=== PATIENT | female | born 1950 | race Caucasian/White ===

== ENCOUNTER → 2019-02-01 10:26 | Outpatient (CLI) | payer MEDICARE, SELFPAY ==
--- NOTE | 2019-02-01 10:50 | XR_ITS ---
PROCEDURE: XR SHOULDER RT MIN 2V CLINICAL INDICATION: right shoulder pain COMPARISON: No exams were available for comparison FINDINGS: Bone density, joint spaces and alignment are normal. There is no acute fracture. Soft tissues unremarkable. IMPRESSION: No acute process. Dictated by: Aj Nascimento 02/01/2019 11:06 Electronically signed by Aj Nascimento in [place] 02/01/2019 11:06
== END ==
PROVIDERS: PCP Family Medicine; Visit Provider Orthopaedic Surgery
DX: M25.511 Pain in right shoulder (principal)
CPT/HCPCS: 73030

== ENCOUNTER → 2019-02-13 13:08 | Outpatient (CLI) | payer MEDICARE, SELFPAY ==
--- NOTE | 2019-02-13 13:10 | MR_ITS ---
PROCEDURE: MR SHOULDER RT WO CON CLINICAL INDICATION: rt shoulder pain Right shoulder pain, prior fall with injury and pain with limited range of motion COMPARISON: XR SHOULDER RT MIN 2V from 02/01/2019 TECHNIQUE: Routine multiplanar multi echo sequences are performed without gadolinium enhancement. FINDINGS: There complete tear of the supraspinatus tendon with retraction of the musculotendinous fibers. Tendinopathy/tendinosis involves the infraspinatus tendon with thickening and increased T2 signal. Teres minor tendon appears intact. There is a moderate degree of motion artifact which obscures fine detail. Tendinopathy/tendinosis involves the subscapularis tendon. Cannot adequately evaluate for partial tear is of the subscapularis due to the motion artifact. No obvious labral tear. The bicipital tendon appears to be in place. There is subacromial stenosis with high-riding humeral head. There are subarticular cystic changes with cortical regularity of the humeral head at the greater tuberosity region.. Fluid is present within the shoulder joint. IMPRESSION: 1. Complete tear of the supraspinatus tendon with retraction of the musculotendinous fibers 2. Moderate degree of motion artifact which obscures fine detail with tendinopathy/tendinosis of the infraspinatus tendon and subscapularis tendon. 3. High-riding humeral head with subacromial stenosis with shoulder joint effusion Dictated by: Caleb Villalobos MD 02/14/2019 13:51 Electronically signed by Caleb Villalobos MD in [place] 02/14/2019 13:51
== END ==
PROVIDERS: PCP Family Medicine; Visit Provider Orthopaedic Surgery
DX: S46.011D Strain of muscle(s) and tendon(s) of the rotator cuff of right shoulder, subsequent encounter; M75.41 Impingement syndrome of right shoulder; M75.21 Bicipital tendinitis, right shoulder; M25.511 Pain in right shoulder
CPT/HCPCS: 73221

== ENCOUNTER 2020-11-13 09:37 | Observation (INO) | payer MEDICARE, SELFPAY ==
[2020-11-13] VITALS (25 sets, daily range): BP systolic 100–152; BP diastolic 48–91; PULSE 76–97; RESP 16–20; TEMP 36.5–43; O2SAT 92–99; BMI 20.8; BMI 22.4
--- NOTE | 2020-11-13 10:04 | HMH.EDGENADL ---
ED Disposition Clinical Impression: Closed right hip fracture Qualifiers: Encounter type: initial encounter Qualified Code(s): S72.001A - Fracture of unspecified part of neck of right femur, initial encounter for closed fracture Disposition: Admitted As Inpatient Condition on Discharge: Fair - Critical Care Critical Care Time: No Attestation: On 11/13/20, the high probability of a clinically significant, sudden or life threatening deterioration of the following system(s) required my full and direct attention, intervention and personal management. The time I documented below is in addition to time spent performing reported procedures but includes the following listed in this critical care notation. Medical Decision Making - Sebastián Inquiry Pt receiving controlled substance: Yes Sebastián was queried for this patient: Yes Risks and benefits of using a controlled substance: were not discussed with pt by me Vital Signs: 11/13/20 09:39 11/13/20 10:01 11/13/20 10:57 Temperature 98.6 F Temperature Source Oral Pulse Rate 76 80 Pulse Rate [Right] 81 Respiratory Rate 16 20 20 Blood Pressure 118/48 L 131/79 Blood Pressure [Left Arm] 125/61 Blood Pressure Mean 71 91 Blood Pressure Mean [Left Arm] 82 Blood Pressure Source [Left Arm] Automatic Cuff 02 Sat by Pulse Oximetry 97 97 97 Oxygen Delivery Method Room Air 11/13/20 11:00 Temperature Temperature Source Pulse Rate 81 Pulse Rate [Right] Respiratory Rate 20 Blood Pressure 132/71 Blood Pressure [Left Arm] Blood Pressure Mean 81 Blood Pressure Mean [Left Arm] Blood Pressure Source [Left Arm] 02 Sat by Pulse Oximetry 97 Oxygen Delivery Method - Lab Data Lab Results 11/13/20 10:50: Sodium 141, Potassium 4.4, Chloride 106, Carbon Dioxide 30, Anion Gap 9.4, BUN 19 H, Creatinine 0.40 L, Estimated Creat Clear 51, Estimated GFR 158, Est GFR ( Amer) 191, Glucose 98, Calcium 9.1, Total Bilirubin 0.3, AST 39 H, ALT 29, Alkaline Phosphatase 83, Total Protein 7.0, Albumin 4.1, Globulin 2.9, Albumin/Globulin Ratio 1.4 11/13/20 11:00: Urine Color Yellow, Urine Appearance Clear, Urine pH 6.5, Ur Specific [place] 1.020, Urine Protein Negative, Urine Glucose (UA) Negative, Urine Ketones Negative, Urine Blood Negative, Urine Nitrate Negative, Urine Bilirubin Negative, Urine Urobilinogen 0.2, Ur Leukocyte Esterase Negative Result diagrams: 11/13/20 10:50 Orders (Tests/Meds): ED MEDICATIONS Discontinued Medications Generic Name Dose Route Start Last Admin Trade Name Trae PRN Reason Stop Dose Admin Morphine Sulfate 4 mg 11/13/20 10:39 11/13/20 10:47 Morphine 4mg/Ml Syringe IV 11/13/20 10:40 4 mg ONCE ONE Administration Ondansetron HCl 4 mg 11/13/20 10:40 11/13/20 10:47 Ondansetron 4mg/2ml Vial IV 11/13/20 10:41 4 mg ONCE ONE Administration ORDERS Category Date Time Status Complete Blood Count Auto Diff Stat Lab 11/13/20 10:50 Received Full Resp Panel w/COVID ([facility]) Routine Lab 11/13/20 10:50 Received Urinalysis (cathed specimen) Stat Lab 11/13/20 11:00 Results - Radiology Data #1 Image(s): Chest, Hip Image Reviewed: Yes I reviewed the patient's radiology image, Yes I have reviewed radiologist's interpretation PROCEDURE: XR HIP RT 2-3V W/PELVIS CLINICAL INDICATION: fall Pain COMPARISON: No exams were available for comparison FINDINGS: There is a nondisplaced intertrochanteric fracture of the right hip. Right femoral head is located with mild osteoarthritic changes of the right hip. No lytic or blastic change apparent. IMPRESSION: Nondisplaced right intertrochanteric hip fracture Dictated by: Caleb Villalobos MD 11/13/2020 10:51 Caleb Villalobos MD in [place] 11/13/2020 10:51 PROCEDURE: XR CHEST PORTABLE CLINICAL HISTORY: hip fx COMPARISON: No exams were available for comparison FINDINGS: The cardiomediastinal silhouette and pulmonary vascularity are w
--- NOTE | 2020-11-13 10:13 | XR_ITS ---
PROCEDURE: XR HIP RT 2-3V W/PELVIS CLINICAL INDICATION: fall Pain COMPARISON: No exams were available for comparison FINDINGS: There is a nondisplaced intertrochanteric fracture of the right hip. Right femoral head is located with mild osteoarthritic changes of the right hip. No lytic or blastic change apparent. IMPRESSION: Nondisplaced right intertrochanteric hip fracture Dictated by: Caleb Villalobos MD 11/13/2020 10:51 Caleb Villalobos MD in [place] 11/13/2020 10:51
--- NOTE | 2020-11-13 10:39 | XR_ITS ---
PROCEDURE: XR CHEST PORTABLE CLINICAL HISTORY: hip fx COMPARISON: No exams were available for comparison FINDINGS: The cardiomediastinal silhouette and pulmonary vascularity are within normal limits. The lungs are clear without infiltrates, suspicious nodules, or pleural effusions. Calcified granuloma left upper lobe. No acute bony findings. IMPRESSION: No acute findings. Dictated by: Caleb Villalobos MD 11/13/2020 10:53 Caleb Villalobos MD in [place] 11/13/2020 10:53
--- NOTE | 2020-11-13 10:55 | PC.NURSE ---
Dr Marquez paged
--- NOTE | 2020-11-13 11:01 | PC.NURSE ---
Dr Mercado spoke with Dr Marquez
--- NOTE | 2020-11-13 11:15 | PC.NURSE ---
Dr Rigoberto coy
[2020-11-13 11:21] LABS: Microscopic,Cath URINE MICROSCOPIC (MICROSCOPIC)
[2020-11-13 11:23] LABS: Adenovirus,PCR Not Detected (NotDetected); Bordetella Pertussis Not Detected (NotDetected); Chlamydophila Pneumoniae, PCR Not Detected (NotDetected); Coronavirus 19, PCR Not Detected (NotDetected); Coronavirus 229E Not Detected (NotDetected); Coronavirus NL63 Not Detected (NotDetected); Coronavirus OC43 Not Detected (NotDetected); Coronovirus HKU1,PCR Not Detected (NotDetected); Human Metapneumovirus Not Detected (NotDetected); Influenza A, PCR Not Detected (NotDetected); Influenza AH1, 2009 Not Detected (NotDetected); Influenza AH1, PCR Not Detected (NotDetected); Influenza AH3,PCR Not Detected (NotDetected); Influenza B, PCR Not Detected (NotDetected); Mycoplasma Pneumoniae, PCR Not Detected (NotDetected); Parainfluenza 1, PCR Not Detected (NotDetected); Parainfluenza 2, PCR Not Detected (NotDetected); Parainfluenza 3, PCR Not Detected (NotDetected); Parainfluenza 4, PCR Not Detected (NotDetected); Respiratory Syncytial Virus Not Detected (NotDetected); Rhinovirus/Enterovirus Not Detected (NotDetected)
--- NOTE | 2020-11-13 11:27 | PC.NURSE ---
Dr Mercado spoke with Dr Franklin
[2020-11-13 11:28] LABS: Appearance,Urine/Cath CLEAR (Clear); Bilirubin,Cath Negative (Negative); Blood, Urine/Cath Negative (Negative); Color,Urine/Cath YELLOW (Yellow); Glucose,Urine/Cath (UA) Negative (Negative); Ketones,Urine/Cath Negative (Negative); Leukocyte Esterase,Cath Negative (Negative); Nitrate,Cath Negative (Negative); PH,Urine/Cath 6.5 (5.0-8.5); Protein,Urine/Cath Negative (Negative); Urobilinogen,Cath 0.2 EU/dl (0.2)
[2020-11-13 11:30] LABS: Chloride 106 mmol/L (98-107)
--- NOTE | 2020-11-13 11:30 | PC.NURSE ---
bed assignment requested, room 204. all staff notified
[2020-11-13 11:31] LABS: Potassium 4.4 mmoL/L (3.5-5.1); Sodium 141 mmol/L (136-145)
[2020-11-13 11:33] LABS: Alanine Aminotransferase 29 U/L (12-78); Aspartate Amino Transferase 39 U/L (14-36); Blood Urea Nitrogen 19 mg/dl (7-17); Creatinine Clearance Estimated 51 mL/min (50-200); Estimated Glomerular Filt Rate 158 ml/min (>60); GFR (African American) 191 ML/MIN (>60)
[2020-11-13 11:34] LABS: Albumin Level 4.1 g/dl (3.5-5.0); Albumin/Globulin Ratio 1.4 (1.1-1.8); Alkaline Phosphatase 83 U/L (38-126); Anion Gap 9.4 mEq/L (5-15); Basophils # 0.1 K/mm3 (0-0.2); Basophils % 0.8 % (0.1-2.0); Bilirubin,Total 0.3 mg/dl (0.2-1.3); Calcium 9.1 mg/dl (8.4-10.2); Carbon Dioxide 30 mmol/L (22.0-30.0); Eosinophils # 0.1 K/mm3 (0.0-0.4); Globulin 2.9 g/dL (1.3-3.2); Glucose 98 mg/dl (74-100); Hematocrit 39.2 % (37.0-47.0); Hemoglobin 12.8 g/dL (12.2-16.2); Lymphocytes # 0.7 K/mm3 (0.7-4.5); Lymphocytes % 11.2 % (10-50); Mean Corpuscular HGB Conc 32.6 g/dL (31.8-35.4); Mean Corpuscular Hemoglobin 27.8 pg (27.0-31.2); Mean Corpuscular Volume 85.4 fl (81-99); Mean Platelet Volume 8.4 fl (7.4-10.4); Monocytes # 0.3 K/mm3 (0.1-1.0); Monocytes % 4.1 % (1.7-9.3); Neutrophils # 5.2 K/mm3 (1.8-7.8); Neutrophils % 82.9 % (37.0-80.0); Platelet Count 209 K/mm3 (142-424); Red Blood Count 4.59 M/mm3 (4.20-5.40); Red Cell Distribution Width 12.6 % (11.5-17.5); White Blood Count 6.2 K/mm3 (4.8-10.8)
--- NOTE | 2020-11-13 11:37 | ECG_ITS ---
APPROVED REPORT Exam: Resting ECG HR:85 bpm ECG Measurements Heart Rate 85 AXES DC 230 P 108 QRSd 90 QRS 35 QT 394 T 64 QTc 468 Conclusion Sinus rhythm with 1st degree AV block with frequent premature ventricular complexes Otherwise normal ECG Electronically signed by : Lino Gregg, 11/13/2020 21:32:41
--- NOTE | 2020-11-13 12:18 | PC.NURSE ---
report called to RAJESH Huizar
--- NOTE | 2020-11-13 12:32 | PC.NURSE ---
Dr. Marquez in room explaining hip procedure to patient
--- NOTE | 2020-11-13 13:07 | PC.NURSE ---
patient transported upstairs by Trudi Uribe RN.
--- NOTE | 2020-11-13 13:48 | HMH.ORTHOCON ---
*Admission Date: 11/13/20 *Reason for consult:: Fracture neck of femur, right *History of present illness: Patient is a pleasant 70-year-old female with no significant past medical history presented to the emergency department today for evaluation and management of right hip pain following a fall. Patient fell while grocery shopping at local [facility]. Patient says she was tripped up by an object on the floor and landed on her right hip. Attempted weightbearing on the right lower extremity was very painful. Following evaluation in the ER, it was noted that she has a nondisplaced right intratrochanteric fracture. She reports no other significant injuries. She says she is normally mobile and independent and does not use any walking aids. She lives with her family. Patient denies any dizziness, headache, chest or neck pain. She denies loss of consciousness, chest pain and shortness of breath. She says her pain is well controlled at rest but trying to move the RIGHT lower extremity causes hip pain. No history of any distal tingling or numbness. Past medical history is unremarkable and noncontributory. She says she did not have any hip pain prior to the fall. [facility] History I have reviewed the patient's past medical history: Yes *Have you ever received a pneumonia vaccine?: No *Have you received a flu vaccine this season?: No Other Medical History: Reports: Arthritis Other Surgeries: Yes: Cholecystectomy, Colonoscopy, Hysterectomy-Total - *Social History Smoking Status: Never smoker Alcohol Intake: never *Occupational Status:: retired *Travel in the last 8 weeks: None Family Hx:: No significant family history Review of Systems - Review of Systems Review of systems:: pertinent systems reviewed and negative unless documented below - Constitutional Denies chills, Denies fever(s), Denies headache(s) - Eyes Reports loss of vision, Reports sensitivity to light, Denies change in vision - ENT Denies abnormal hearing - *Cardiovascular Denies chest pain, Denies shortness of breath - *Respiratory Denies chest congestion, Denies cough - *Gastrointestinal Denies abdominal pain - *Musculoskeletal Reports abnormal walking, Reports joint pain, Reports limited joint movement - *Neurologic Denies numbness, Denies tingling/numbness/burning sensations, Denies weakness - Endocrine Denies cold intolerance, Denies heat intolerance - Hematologic/Lymphatic Denies easy bleeding, Denies easy bruising Meds Home Medications Medication Instructions Recorded Confirmed Type No Known Home Medications 11/13/20 11/13/20 History Allergies Allergy/AdvReac Type Severity Reaction Status Date / Time codeine AdvReac Nausea Verified 02/20/19 09:28 Exam Vital signs and Labs for Last 24 Hours: Temp Pulse Resp BP Pulse Ox 98.3 F 82 16 100/71 L 94 L 11/13/20 13:18 11/13/20 13:18 11/13/20 13:18 11/13/20 13:18 11/13/20 13:18 Laboratory Results - last 24 hr 11/13/20 10:50: WBC 6.2, RBC 4.59, Hgb 12.8, Hct 39.2, MCV 85.4, MCH 27.8, MCHC 32.6, RDW 12.6, Plt Count 209, MPV 8.4, Neut % (Auto) 82.9 H, Lymph % (Auto) 11.2, [place] % (Auto) 4.1, Eos % (Auto) 1.0, Baso % (Auto) 0.8, Neut # (Auto) 5.2, Lymph # (Auto) 0.7, [place] # (Auto) 0.3, Eos # (Auto) 0.1, Baso # (Auto) 0.1 11/13/20 10:50: Sodium 141, Potassium 4.4, Chloride 106, Carbon Dioxide 30, Anion Gap 9.4, BUN 19 H, Creatinine 0.40 L, Estimated Creat Clear 51, Estimated GFR 158, Est GFR ( Amer) 191, Glucose 98, Calcium 9.1, Total Bilirubin 0.3, AST 39 H, ALT 29, Alkaline Phosphatase 83, Total Protein 7.0, Albumin 4.1, Globulin 2.9, Albumin/Globulin Ratio 1.4 11/13/20 10:50: Chlamy pneumoniae PCR Not detected, Adenovirus (PCR) Not detected, B. pertussis DNA (PCR) Not detected, Coronavirus OC43 (PCR) Not detected, Coronavirus HKU1 (PCR) Not detected, Coronavirus 229E (PCR) Not detected, SARS-CoV-2 (PCR) Not detected, Coronavirus NL63 (PCR) Not detected, Human Metapneumovir PCR Not
--- NOTE | 2020-11-13 15:05 | P.CONPHA_ITS ---
[facility] VTE Monitoring - Patient Demographics Admission date: 11/13/20 Report Date: 11/13/20 Time: 15:05 Allergies/Adverse Reactions: Patient Allergies codeine Adverse Reaction (Verified 02/20/19 09:28) Nausea Height: 1.7 m Weight: 64.864 kg Patient Problems: Current Active Problems Closed right hip fracture (Acute) - VTE Risk Labs: VTE Related Lab Results Hgb 12.8 g/dL (12.2-16.2) 11/13/20 10:50 Hct 39.2 % (37.0-47.0) 11/13/20 10:50 Plt Count 209 K/mm3 (142-424) 11/13/20 10:50 BUN 19 mg/dl (7-17) H 11/13/20 10:50 Creatinine 0.40 mg/dl (0.52-1.04) L 11/13/20 10:50 Estimated Creat Clear 51 mL/min (50-200) 11/13/20 10:50 VTE Risk Level: Moderate Risk - Prophylaxis VTE Prophylaxis Ordered?: Yes Types of VTE Prophylaxis: TEDS Knee High Location of Applied Device: Bilateral Lower Extremeties
--- NOTE | 2020-11-13 15:55 | HMH.HP ---
*Admission Date: 11/13/20 *Chief complaint: Fall with right hip pain *History of present illness: 70-year-old female with no significant past medical history presents to the emergency department today. Patient fell while grocery shopping at [facility]. Patient was tripped up by an object on the floor. Landing on her right hip which resulted in a nondisplaced right intratrochanteric fracture. Patient has been admitted for surgical repair. She has been seen by orthopedic surgery. Past medical history is unremarkable and noncontributory Review of systems is negative for chest pain, palpitations, shortness of breath, dyspnea on exertion, dyspnea at rest [facility] History I have reviewed the patient's past medical history: Yes *Have you ever received a pneumonia vaccine?: No *Have you received a flu vaccine this season?: No Other Medical History: Reports: Arthritis Other Surgeries: Yes: Cholecystectomy, Colonoscopy, Hysterectomy-Total - *Social History Last grade of school completed: High school graduate Smoking Status: Never smoker Alcohol Intake: never *Occupational Status:: retired *Travel in the last 8 weeks: None Family Hx:: No significant family history Review of Systems - Constitutional Denies body ache(s), Denies chills - Eyes Reports loss of vision, Reports sensitivity to light - ENT Denies ear discharge - *Cardiovascular Denies chest pain, Denies chest pain at rest, Denies chest pain with activity, Denies shortness of breath, Denies shortness of breath with activity - *Respiratory Denies change in phlegm color, Denies chest congestion, Denies cough, Denies coughing up blood - *Gastrointestinal Denies belching, Denies bloating, Denies heartburn - *Genitourinary Denies painful urination - *Musculoskeletal Reports joint pain - Integumentary/Breasts Denies bleeding lesions - *Neurologic Denies abnormal walking, Denies abnormal hearing, Denies numbness, Denies weakness Meds Home Medications Medication Instructions Recorded Confirmed Type No Known Home Medications 11/13/20 11/13/20 History Allergies Allergy/AdvReac Type Severity Reaction Status Date / Time codeine AdvReac Nausea Verified 02/20/19 09:28 Exam Vital signs and Labs for Last 24 Hours: Temp Pulse Resp BP Pulse Ox 98.3 F 90 16 141/73 H 96 11/13/20 15:26 11/13/20 15:26 11/13/20 15:26 11/13/20 15:26 11/13/20 15:26 Laboratory Results - last 24 hr 11/13/20 10:50: WBC 6.2, RBC 4.59, Hgb 12.8, Hct 39.2, MCV 85.4, MCH 27.8, MCHC 32.6, RDW 12.6, Plt Count 209, MPV 8.4, Neut % (Auto) 82.9 H, Lymph % (Auto) 11.2, [place] % (Auto) 4.1, Eos % (Auto) 1.0, Baso % (Auto) 0.8, Neut # (Auto) 5.2, Lymph # (Auto) 0.7, [place] # (Auto) 0.3, Eos # (Auto) 0.1, Baso # (Auto) 0.1 11/13/20 10:50: Sodium 141, Potassium 4.4, Chloride 106, Carbon Dioxide 30, Anion Gap 9.4, BUN 19 H, Creatinine 0.40 L, Estimated Creat Clear 51, Estimated GFR 158, Est GFR ( Amer) 191, Glucose 98, Calcium 9.1, Total Bilirubin 0.3, AST 39 H, ALT 29, Alkaline Phosphatase 83, Total Protein 7.0, Albumin 4.1, Globulin 2.9, Albumin/Globulin Ratio 1.4 11/13/20 10:50: Chlamy pneumoniae PCR Not detected, Adenovirus (PCR) Not detected, B. pertussis DNA (PCR) Not detected, Coronavirus OC43 (PCR) Not detected, Coronavirus HKU1 (PCR) Not detected, Coronavirus 229E (PCR) Not detected, SARS-CoV-2 (PCR) Not detected, Coronavirus NL63 (PCR) Not detected, Human Metapneumovir PCR Not detected, Influenza A (H1) PCR Not detected, Influ A (H1N1/09) PCR Not detected, Influenza A (H3) PCR Not detected, Influenza Type A (PCR) Not detected, Influenza Type B (PCR) Not detected, M. pneumoniae (PCR) Not detected, Parainfluenza 1 (PCR) Not detected, Parainfluenza 2 (PCR) Not detected, Parainfluenza 3 (PCR) Not detected, Parainfluenza 4 (PCR) Not detected, RSV (PCR) Not detected, Entero/Rhino (PCR) Not detected 11/13/20 11:00: Urine Color Yellow, Urine Appearance Clear, Urine pH 6.5, Ur Specific [place]
--- NOTE | 2020-11-13 17:22 | HMH.ANESCL ---
[facility] Anesthesia Checklist - Patient Identification Patient Identification: Arm Band - Structural Data Admitted From: Inpatient Planned Operative Procedure/s: Cephalomedullary Nailing Right Femur Consent for Planned Operative Procedure(s) Verified: Yes Verified Documents: Surgical Consent, History and Physical - NPO Status Verified Time NPO: 00:00 - Additional verifications Anesthesia Reactions: No - Airway Assessment C-Spine Mobility Assessed: Yes (mp2) TMJ Mobility Assessed: Yes Dentition: Good Dentition - Neurological Assessment Level of Consciousness: Awake, Alert - Anesthesia Plan Anesthesia Risk discussed: Yes Anesthesia Plan: Verified ASA Class: I Anesthesia Type: MAC w/Spinal [facility] History I have reviewed the patient's past medical history: Yes *Have you ever received a pneumonia vaccine?: No *Have you received a flu vaccine this season?: No Other Medical History: Reports: Arthritis Anesthesia experience/problems:: nac Other Surgeries: Yes: Cholecystectomy, Colonoscopy, Hysterectomy-Total - *Social History Last grade of school completed: High school graduate Smoking Status: Never smoker Alcohol Intake: never Substance Use Type: denies use *Occupational Status:: retired *Travel in the last 8 weeks: None Family Hx:: No significant family history
--- NOTE | 2020-11-13 18:05 | XR_ITS ---
PROCEDURE: XR HIP RT 2-3V W/PELVIS CLINICAL INDICATION: IN SURG COMPARISON: CR XR HIP RT 2-3V W/PELVIS from 11/13/2020 FINDINGS: Multiple images submitted with the C-arm demonstrates insertion gamma nail and intramedullary diane in good position stabilizing the intertrochanteric fracture. Fluoroscopy time: 1 minutes and 13 seconds IMPRESSION: Status post ORIF right intertrochanteric fracture Dictated by: Caleb Villalobos MD 11/23/2020 08:03 Caleb Villalobos MD in [place] 11/23/2020 08:03
--- NOTE | 2020-11-13 18:44 | HMH.ANESI ---
[facility] Anesthesia Record Part I Intake, IV Amount: 1,100 Estimated blood loss (mL): 150 Urine output (mL): 700 Blood Pressure: 115/79 SaO2: 99 Pulse Rate: 88 Respiratory Rate: 16 Temperature: 98.6 F Patient is:: Drowsy, Stable Stable to PACU at:: 18:40
--- NOTE | 2020-11-13 18:54 | PC.NURSE ---
PT IN OR AT THIS TIME.
--- NOTE | 2020-11-13 19:15 | PC.NURSE ---
PT BACK TO FLOOR VIA BED FROM OR W/STAFF AT 191
--- NOTE | 2020-11-13 19:17 | SUR.PHASEI ---
1908- Detailed report was given to sandoval rangel rn by Yudi jimenez. 1910- Pt was left in stable condition with sandoval Rangel Rn.
--- NOTE | 2020-11-13 20:00 | HMH.OPNOTE ---
Date of procedure: 11/13/20 Pre-op Diagnosis:: Closed, nondisplaced intertrochanteric fracture, right hip Post-op Diagnosis:: Same Procedure performed:: Cephalomedullary nailing, right femur Surgeon:: Aman Marquez MD [employer] WORKER:: Naeem Briggs Anesthesia: spinal Estimated blood loss (mL): 150 Clinical Note:: Patient is a 70-year-old female who had a mechanical fall tripping over an object in a local grocery store, sustaining an injury to her right hip today. Following evaluation in the emergency room where x-ray showed a nondisplaced intertrochanteric fracture of the right proximal femur, patient was admitted for further management. After evaluating the patient, I have discussed the diagnosis and management options in detail including nonsurgical and surgical, with the patient. After a detailed discussion with the patient, a decision was made to fix the fracture internally with a cephalo-medullary nail. I have discussed the procedure, risks and benefits, postoperative recovery and rehabilitation and the expected outcomes. The complications discussed include but are not limited to DVT, PE, infection, bleeding, injury to nerves and blood vessels, screw cut-out/implant failure, loss of fixation, nonunion, malunion/malrotation, osteonecrosis of the femoral head, femoral shaft fracture, painful hardware, heterotopic ossification, stiffness, weakness, incomplete relief of pain, incomplete return of function or motion and the likely need for further surgery in future, and anesthetic/medical complications including heart attack, stroke, transfusion reaction or . The patient wished to proceed with the surgical remediation. Consent form was reviewed and signed by me. The limb was appropriately marked and initialed by me. Surgery was delayed for couple of days as patient was on Eliquis prior to admission and also needed cardiac clearance prior to surgery. Following appropriate preoperative workup including medical clearance, patient is brought to the operating room for surgery. The surgery is indicated to stabilize the fracture, relieve pain and improve function. Patient understood the risks, agreed to proceed with surgery, signed the consent form and no guarantees or assurances were given or implied. Operative findings:: Comminuted, nondisplaced intertrochanteric fracture right proximal femur as noted on the preoperative x-rays. The fracture is well reduced and fixed in a stable fashion with a short cephalomedullary nail. Bone quality is good. Operative note:: Following appropriate preoperative workup and medical clearance, patient is brought to the operating room and a spinal anesthesia was administered by the program instructor. Patient was then positioned supine on the fracture table and all the bony prominences were appropriately padded. The right foot was secured in the footplate and the footplate was attached to the fracture table. The left leg was placed out of the way in a leg abdi. Under fluoroscopic guidance the fracture was noted to be nondisplaced with overall good alignment. The right hip and thigh were then prepped and draped in the usual sterile fashion. Administration of prophylactic antibiotics was confirmed with the program instructor (2 g of IV Ancef and vancomycin were administered). A preprocedure timeout was performed as per the hospital protocol. After marking the level of the greater trochanter on the skin under fluoroscopy, a skin incision was made proximal to the greater trochanter in line with the femoral shaft. The dissection was then carried through the subcutaneous tissue. The tensor fascia muscle was split in line with the fibers. This provided access to the tip of the greater trochanter. Under fluoroscopic guidance a guidewire was placed at the tip of the greater trochanter, the position was confirmed on both fluoroscopic views and advanced into the proximal femur. The proximal segment was then reamed over the guidewire and the guidewire was exchanged for
--- NOTE | 2020-11-13 20:30 | HMH.ANESII ---
[facility] Anesthesia Record Part II Discharge Time: 19:10 Destination: Medical Surgical Department PACU nurse assessment reviewed?: Yes Patient Condition:: Good Anesthesia Complications:: None Swallowing reflex intact?: Yes Cyanosis?: No Blood Pressure: 139/69 Pulse Rate: 96 Temperature: 97.7 F Mental Status: Alert & Oriented Pain level:: 0 Nausea and/or vomitting:: None Intake, IV Amount: 0
[2020-11-14] VITALS (10 sets, daily range): BP systolic 104–152; BP diastolic 57–72; PULSE 86–104; RESP 16–18; TEMP 36.6–37.7; O2SAT 93–98
--- NOTE | 2020-11-14 06:45 | PC.NURSE ---
Post op day 1; has requested pain medication per MAR and has tolerated well. Has shown no s/s of acute distress or uncontrolled pain at this time. Will continue to monitor.
[2020-11-14 07:00] LABS: Basophils % 0.3 % (0.1-2.0); Lymphocytes # 0.9 K/mm3 (0.7-4.5); Monocytes # 0.3 K/mm3 (0.1-1.0); Neutrophils # 3.8 K/mm3 (1.8-7.8); Red Cell Distribution Width 12.8 % (11.5-17.5)
[2020-11-14 07:10] LABS: Alanine Aminotransferase 21 U/L (12-78); Albumin Level 3.1 g/dl (3.5-5.0); Albumin/Globulin Ratio 1.2 (1.1-1.8); Alkaline Phosphatase 76 U/L (38-126); Anion Gap 7.9 mEq/L (5-15); Aspartate Amino Transferase 29 U/L (14-36); Bilirubin,Total 0.5 mg/dl (0.2-1.3); Blood Urea Nitrogen 13 mg/dl (7-17); Calcium 8.4 mg/dl (8.4-10.2); Carbon Dioxide 29 mmol/L (22.0-30.0); Chloride 105 mmol/L (98-107); Creatinine Clearance Estimated 54 mL/min (50-200); Estimated Glomerular Filt Rate 122 ml/min (>60); GFR (African American) 148 ML/MIN (>60); Globulin 2.5 g/dL (1.3-3.2); Glucose 91 mg/dl (74-100); Potassium 3.9 mmoL/L (3.5-5.1); Sodium 138 mmol/L (136-145); Total Protein,Serum 5.6 g/dl (6.3-8.2)
[2020-11-14 07:11] LABS: Eosinophils # 0.1 K/mm3 (0.0-0.4); Eosinophils % 1.1 % (0.1-12.0); Hematocrit 33.6 % (37.0-47.0); Lymphocytes % 17.4 % (10-50); Mean Corpuscular HGB Conc 33.3 g/dL (31.8-35.4); Mean Corpuscular Hemoglobin 28.4 pg (27.0-31.2); Mean Corpuscular Volume 85.4 fl (81-99); Mean Platelet Volume 7.7 fl (7.4-10.4); Neutrophils % 76.3 % (37.0-80.0); Platelet Count 157 K/mm3 (142-424); Red Blood Count 3.93 M/mm3 (4.20-5.40); White Blood Count 4.9 K/mm3 (4.8-10.8)
[2020-11-14 08:33] LABS: Hemoglobin 11.2 g/dL (12.2-16.2)
--- NOTE | 2020-11-14 08:35 | HMH.ACPN2 ---
Internal Medicine - PN: Subj *Date: 11/14/20 *Time: 08:35 Interval history: Patient has no complaints. There is no pain from her right hip. She does have some pain in her back from the bed she is sleeping and. Exam Vital signs and Labs for Last 24 Hours: Temp Pulse Resp BP Pulse Ox 98.9 F 95 H 16 118/64 96 11/14/20 08:00 11/14/20 08:00 11/14/20 08:00 11/14/20 08:00 11/14/20 04:00 Laboratory Results - last 24 hr 11/13/20 10:50: WBC 6.2, RBC 4.59, Hgb 12.8, Hct 39.2, MCV 85.4, MCH 27.8, MCHC 32.6, RDW 12.6, Plt Count 209, MPV 8.4, Neut % (Auto) 82.9 H, Lymph % (Auto) 11.2, [place] % (Auto) 4.1, Eos % (Auto) 1.0, Baso % (Auto) 0.8, Neut # (Auto) 5.2, Lymph # (Auto) 0.7, [place] # (Auto) 0.3, Eos # (Auto) 0.1, Baso # (Auto) 0.1 11/13/20 10:50: Sodium 141, Potassium 4.4, Chloride 106, Carbon Dioxide 30, Anion Gap 9.4, BUN 19 H, Creatinine 0.40 L, Estimated Creat Clear 51, Estimated GFR 158, Est GFR ( Amer) 191, Glucose 98, Calcium 9.1, Total Bilirubin 0.3, AST 39 H, ALT 29, Alkaline Phosphatase 83, Total Protein 7.0, Albumin 4.1, Globulin 2.9, Albumin/Globulin Ratio 1.4 11/13/20 10:50: Chlamy pneumoniae PCR Not detected, Adenovirus (PCR) Not detected, B. pertussis DNA (PCR) Not detected, Coronavirus OC43 (PCR) Not detected, Coronavirus HKU1 (PCR) Not detected, Coronavirus 229E (PCR) Not detected, SARS-CoV-2 (PCR) Not detected, Coronavirus NL63 (PCR) Not detected, Human Metapneumovir PCR Not detected, Influenza A (H1) PCR Not detected, Influ A (H1N1/09) PCR Not detected, Influenza A (H3) PCR Not detected, Influenza Type A (PCR) Not detected, Influenza Type B (PCR) Not detected, M. pneumoniae (PCR) Not detected, Parainfluenza 1 (PCR) Not detected, Parainfluenza 2 (PCR) Not detected, Parainfluenza 3 (PCR) Not detected, Parainfluenza 4 (PCR) Not detected, RSV (PCR) Not detected, Entero/Rhino (PCR) Not detected 11/13/20 11:00: Urine Color Yellow, Urine Appearance Clear, Urine pH 6.5, Ur Specific [place] 1.020, Urine Protein Negative, Urine Glucose (UA) Negative, Urine Ketones Negative, Urine Blood Negative, Urine Nitrate Negative, Urine Bilirubin Negative, Urine Urobilinogen 0.2, Ur Leukocyte Esterase Negative, Urine RBC None, Urine WBC None, Ur Squamous Epith Cells None, Urine Bacteria None 11/13/20 13:21: Blood Type A Positive, Antibody Screen Negative 11/14/20 06:41: WBC 4.9, RBC 3.93 L, Hgb 11.2 L D, Hct 33.6 L, MCV 85.4, MCH 28.4, MCHC 33.3, RDW 12.8, Plt Count 157, MPV 7.7, Neut % (Auto) 76.3, Lymph % (Auto) 17.4, [place] % (Auto) 5.0, Eos % (Auto) 1.1, Baso % (Auto) 0.3, Neut # (Auto) 3.8, Lymph # (Auto) 0.9, [place] # (Auto) 0.3, Eos # (Auto) 0.1, Baso # (Auto) 0.0 11/14/20 06:41: Sodium 138, Potassium 3.9, Chloride 105, Carbon Dioxide 29, Anion Gap 7.9, BUN 13 D, Creatinine 0.50 L D, Estimated Creat Clear 54, Estimated GFR 122, Est GFR ( Amer) 148 D, Glucose 91, Calcium 8.4, Total Bilirubin 0.5, AST 29 D, ALT 21 D, Alkaline Phosphatase 76, Total Protein 5.6 L, Albumin 3.1 L D, Globulin 2.5, Albumin/Globulin Ratio 1.2 I & O for Last 24 hours: Intake & Output 11/11/20 11/12/20 11/13/20 11/14/20 11:59 11:59 11:59 11:59 Intake Total 1836 / 1836 Output Total 450 / 450 Balance 1386 / 1386 Weight 133 lb 143 lb Narrative: Patient appears comfortable. Lungs remain clear. Heart has a regular rate and rhythm. Abdomen is soft. Right lower extremity is neurovascularly intact Assessment and Plan (1) Closed right hip fracture Status: Acute Qualifiers: Encounter type: initial encounter Qualified Code(s): S72.001A - Fracture of unspecified part of neck of right femur, initial encounter for closed fracture Category: Medical Code(s): S72.001A - Fracture of unspecified part of neck of right femur, initial encounter for closed fracture - Assessment and plan all Dx Assessment and Plan for all problems:: 1. PT eval today
--- NOTE | 2020-11-14 09:37 | PC.NURSE ---
Contacted Nico from therapy about consult on this pt.
--- NOTE | 2020-11-14 12:14 | HMH.PTEV ---
Physical Therapy Evaluation Rehab PT IP Evaluation Start: 11/13/20 19:26 Freq: ONCE Status: Active Protocol: Document 11/14/20 12:10 PHORNE (Rec: 11/14/20 12:14 PHORNE [id number]) Subjective/History History History 70 yowf adm to [facility] S/P fall with R femur fx, now S/P R femur IMN. She reports no steps to enter the home and she is generally independent with all mobility at baseline. Subjective Subjective Pt reports, My leg doesn't hurt too bad, but it just feels funny. Rehab PT IP Eval Objective Appearance Patient Behavior Appropriate Patient Orientation Person,Place,Time Difficulty following instructions none Speech Pattern Clear Ambulation Patient Able to Ambulate Yes Ambulation Observation IP General Gait Pattern Observation Antalgic Gait,Decrease Stride Lngth (R),Decrease Stride Lngth (L) Ambulation Distance (feet) 30 Ambulation Assistive Device Rolling Walker Ambulation Ability Contact Guard/Hand Hold Balance Ability to Arise Able, uses arms to help Sitting Balance Steady, safe Standing Balance Steady, wide stance Dynamic Sitting Balance Ability Good Dynamic Standing Balance Ability Fair Transfers Bed Transfer Ability Minimal x 1 (25% assist) Chair Transfer Ability Contact Guard/Hand Hold Sit to Stand Bed Transfer Ability Minimal x 1 (25% assist) Sit to Stand Chair Transfer Ability Minimal x 1 (25% assist) Rehab PT IP prob,goals,plan Problems Date of Evaluation: 11/14/20 PT IP Problems Bed Mobility,Transfers,Gait Rehab Potential Rehab Potential Good Equipment Needs Assistive Devices Rolling / Wheeled Walker Plan PT Intervention Plan Bed Mobility,Transfers,Gait, Therapeutic Exercise PT Plan Frequency BID Duration LOS Discharge Goals Bed Transfer Ability Contact Guard/Hand Hold Sit to Stand Chair Transfer Ability Supervision/Stand by Ambulation Assistive Device Rolling Walker Ambulation Distance (feet) 50 Discharge Plan PT Discharge Plan Pt is appropriate to return home once medically stable. Recommend BSC and RW for home use. Home Health or OUtpatient PT is also recommended. G -code Required No Eval Complexity Eval Charge Codes 37135 - Mod
--- NOTE | 2020-11-14 18:51 | PC.NURSE ---
Pt alert and oriented and able to make needs known. RR even and unlabored. Pt up to chair and has done well this shift. Pt has required very little pain meds. Have explained not to let pain get out of control, before taking something. Pt is asleep in chair at this time. CB in reach. VSS.
--- NOTE | 2020-11-14 21:13 | P.PN_ITS ---
Subjective Date: 11/14/20 Time: 20:30 Principal diagnosis: Status post cephalomedullary nailing, right hip Interval history: Patient is a 70-year-old female, status post cephalo-medullary nailing right femur, post op day #1. She is sitting out in a chair and appears comfortable; says she is doing well and is eating and drinking well. She says she has minimal pain and her pain is well controlled with as needed pain medication. No history of any fevers, chills or rigors. No history of any nausea, vomiting, chest pain or SOB. She says she is mobilizing well with a walker. PN: Obj Ex Vital signs: Temp Pulse Resp BP Pulse Ox 99.7 F H 104 H 16 152/72 H 97 11/14/20 19:56 11/14/20 19:56 11/14/20 19:56 11/14/20 19:56 11/14/20 19:56 Narrative: Laboratory Results - last 24 hr 11/14/20 06:41: WBC 4.9, RBC 3.93 L, Hgb 11.2 L D, Hct 33.6 L, MCV 85.4, MCH 28.4, MCHC 33.3, RDW 12.8, Plt Count 157, MPV 7.7, Neut % (Auto) 76.3, Lymph % (Auto) 17.4, [place] % (Auto) 5.0, Eos % (Auto) 1.1, Baso % (Auto) 0.3, Neut # (Auto) 3.8, Lymph # (Auto) 0.9, [place] # (Auto) 0.3, Eos # (Auto) 0.1, Baso # (Auto) 0.0 11/14/20 06:41: Sodium 138, Potassium 3.9, Chloride 105, Carbon Dioxide 29, Anion Gap 7.9, BUN 13 D, Creatinine 0.50 L D, Estimated Creat Clear 54, Estimated GFR 122, Est GFR ( Amer) 148 D, Glucose 91, Calcium 8.4, Total Bilirubin 0.5, AST 29 D, ALT 21 D, Alkaline Phosphatase 76, Total Protein 5.6 L, Albumin 3.1 L D, Globulin 2.5, Albumin/Globulin Ratio 1.2 Objective: Vitals, I&O and Labs: I reviewed the vital signs, lab results, medication, nursing notes, medical progress notes and also discussed with the nursing staff regarding patient?s progress. Exam: General appearance: Alert, awake, no acute distress Cardiovascular: regular rate & rhythm Respiratory: no respiratory distress; speaks in full sentences ABD: soft and nontender. Neuro: alert, awake oriented x 3 Psych: Appropriate mood and affect On examination of the right lower extremity, the limb lengths are equal. The alignment is neutral. The dressings over the hip/thigh are clean, dry and intact. Attempted movements of the hip are painful. Distal neurovascular status is intact. Distal pulses are 1+. Distal sensation is intact to light touch throughout. No motor deficits noted distally. Calf is soft and nontender. No clinical signs of DVT noted. - Urinary Catheter Management Bradley Cath placed during this visit: no Progress Note: A&P (1) Closed right hip fracture Start date: 11/13/20 Status: Acute Assessment and Plan for All Diagnoses:: I have reviewed the clinical findings and progress with the patient. Patient is doing well and advised her to continue mobilization weight bearing as tolerated on the right side. Discontinue IV fluids as patient is eating and drinking well. Continue PT/OT, pain management with as needed narcotic analgesics. Care management to look into discharge planning. From an orthopedic standpoint, patient can be discharged tomorrow if medically appropriate. Recommend DVT prophylaxis for 6 weeks postop- appropriate agents include Lovenox, Aspirin (325 mg), Xarelto, Eliquis and Coumadin. Follow-up in my office in 2 weeks? time with check x-ray. Please feel free to call our office at [phone] for any orthopaedic questions. Continue medical management as per Dr. Franklin.
[2020-11-15 03:34] VITALS: BP 146/74; PULSE 68; RESP 16; TEMP 37.3; O2SAT 95
[2020-11-15 03:39] VITALS: BP 147/81; PULSE 95; RESP 22; TEMP 36.8; O2SAT 95
[2020-11-15 05:00] VITALS: BMI 22.1
--- NOTE | 2020-11-15 05:07 | PC.NURSE ---
Post op first 24 hours uneventful; patient used walker to ambulate from chair to bathroom and then to the bed with no issues. Dr. Marquez d/c NS fluids. Surgical dressing c/d/i; patient has not requested any pain medication this shift and when asked pain level she states pain is tolerable right now. Call light in reach, bed at lowest level for safety, shows no s/s of acute distress; will continue to monitor.
[2020-11-15 07:16] LABS: Anion Gap 10.6 mEq/L (5-15); Blood Urea Nitrogen 13 mg/dl (7-17); Calcium 8.5 mg/dl (8.4-10.2); Carbon Dioxide 26 mmol/L (22.0-30.0); Chloride 105 mmol/L (98-107); Creatinine Clearance Estimated 54 mL/min (50-200); Estimated Glomerular Filt Rate 158 ml/min (>60); GFR (African American) 191 ML/MIN (>60); Glucose 92 mg/dl (74-100); Potassium 3.6 mmoL/L (3.5-5.1); Sodium 138 mmol/L (136-145)
[2020-11-15 07:18] LABS: Basophils % 0.4 % (0.1-2.0); Eosinophils # 0.1 K/mm3 (0.0-0.4); Eosinophils % 1.4 % (0.1-12.0); Hematocrit 34.9 % (37.0-47.0); Hemoglobin 11.7 g/dL (12.2-16.2); Lymphocytes # 0.9 K/mm3 (0.7-4.5); Lymphocytes % 16.2 % (10-50); Mean Corpuscular HGB Conc 33.6 g/dL (31.8-35.4); Mean Corpuscular Hemoglobin 28.3 pg (27.0-31.2); Mean Corpuscular Volume 84.4 fl (81-99); Monocytes # 0.2 K/mm3 (0.1-1.0); Neutrophils # 4.5 K/mm3 (1.8-7.8); Platelet Count 172 K/mm3 (142-424); Red Blood Count 4.14 M/mm3 (4.20-5.40); Red Cell Distribution Width 12.9 % (11.5-17.5); White Blood Count 5.7 K/mm3 (4.8-10.8)
--- NOTE | 2020-11-15 07:27 | HMH.DCSUM ---
General - General Admission date:: 11/13/20 Discharge date: 11/15/20 HPI HPI: 70-year-old female with no significant past medical history presents to the emergency department today. Patient fell while grocery shopping at [facility]. Patient was tripped up by an object on the floor. Landing on her right hip which resulted in a nondisplaced right intratrochanteric fracture. Patient has been admitted for surgical repair. She has been seen by orthopedic surgery. Past medical history is unremarkable and noncontributory Review of systems is negative for chest pain, palpitations, shortness of breath, dyspnea on exertion, dyspnea at rest Hospital Course Hospital Course: Patient was admitted for intertrochanteric fracture treatment. On November 13 patient underwent cephalomedullary nailing. On November 14 patient ambulated with a walker and underwent PT eval. Patient was independent postoperatively. On November 15 patient was discharged home. Patient will use aspirin 325 mg for DVT prophylaxis for the next 6 weeks. Patient will follow up with Dr. Marquez in 2 weeks. Objective Vital signs: Temp Pulse Resp BP Pulse Ox 98.2 F 95 H 22 147/81 H 95 11/15/20 03:39 11/15/20 03:39 11/15/20 03:39 11/15/20 03:39 11/15/20 03:39 no acute distress - *Routine Respiratory Exam Present: CTA bilaterally - *Routine Cardiovascular Exam Present: RRR - *Routine Extremities Exam Absent: cyanosis, clubbing, edema Results Labs on day of discharge: Labs from last 24 hours 11/15/20 11/15/20 11/14/20 06:15 06:15 06:41 WBC 5.7 RBC 4.14 L Hgb 11.7 L 11.2 L D Hct 34.9 L MCV 84.4 MCH 28.3 MCHC 33.6 RDW 12.9 Plt Count 172 MPV 8.0 Neut % (Auto) 78.0 Lymph % (Auto) 16.2 [place] % (Auto) 4.0 Eos % (Auto) 1.4 Baso % (Auto) 0.4 Neut # (Auto) 4.5 Lymph # (Auto) 0.9 [place] # (Auto) 0.2 Eos # (Auto) 0.1 Baso # (Auto) 0.0 Sodium 138 Potassium 3.6 Chloride 105 Carbon Dioxide 26 Anion Gap 10.6 BUN 13 Creatinine 0.40 L Estimated Creat Clear 54 Estimated GFR 158 Est GFR ( Amer) 191 D Glucose 92 Calcium 8.5 DS: Diagnosis - Discharge Diagnosis (1) Closed right hip fracture Status: Acute Discharge Plan - Patient Discharge Instructions ACTIVITY: Continue current activity DIET: continue same diet Patient Instructions: DI for Hip Fracture, DI for Hip Replacement, DI for Surgical Site Infection, Catheter-associated Urinary Tract Infection - Follow up Plan Follow up with: Aman Marquez MD [Staff Physician] - 2 weeks Disposition: Home, Self-Care Condition at discharge:: Improved Home Medications: Home Medications Medication Instructions Recorded Confirmed Type Aspirin [Aspirin 325mg Tab] 325 mg PO DAILY #30 tab 11/15/20 Rx Hydrocod/Acet 5/325 mg [[place] 1 tab PO Q4HP PRN #30 tablet 11/15/20 Rx 5/325mg tablet] Prescriptions/Medication Reconciliation: New Aspirin [Aspirin 325mg Tab] 325 mg PO DAILY #30 tab Hydrocod/Acet 5/325 mg [[place] 5/325mg tablet] 1 tab PO Q4HP PRN #30 tablet PRN Reason: Moderate To Severe Pain - Problem Reconciliation Problems Reviewed?: Yes
[2020-11-15 07:57] VITALS: BP 135/72; PULSE 96; RESP 17; TEMP 37.1; O2SAT 97
--- NOTE | 2020-11-15 14:05 | P.PN_ITS ---
Subjective Date: 11/15/20 Time: 08:30 Principal diagnosis: Status post cephalomedullary nailing, right hip Interval history: Patient is a 70-year-old female, status post cephalo-medullary nailing right femur, post op day 2. She is sitting out in a chair and appears comfortable; says she is doing well and reports no problems. She says she has minimal pain and her pain is well controlled with as needed pain medication. No history of any fevers, chills or rigors. She says she is mobilizing well with a walker. PN: Obj Ex Vital signs: Temp Pulse Resp BP Pulse Ox 98.8 F 96 H 17 135/72 97 11/15/20 07:57 11/15/20 07:57 11/15/20 07:57 11/15/20 07:57 11/15/20 07:57 Narrative: Laboratory Results - last 24 hr 11/15/20 06:15: WBC 5.7, RBC 4.14 L, Hgb 11.7 L, Hct 34.9 L, MCV 84.4, MCH 28.3, MCHC 33.6, RDW 12.9, Plt Count 172, MPV 8.0, Neut % (Auto) 78.0, Lymph % (Auto) 16.2, [place] % (Auto) 4.0, Eos % (Auto) 1.4, Baso % (Auto) 0.4, Neut # (Auto) 4.5, Lymph # (Auto) 0.9, [place] # (Auto) 0.2, Eos # (Auto) 0.1, Baso # (Auto) 0.0 11/15/20 06:15: Sodium 138, Potassium 3.6, Chloride 105, Carbon Dioxide 26, Anion Gap 10.6, BUN 13, Creatinine 0.40 L, Estimated Creat Clear 54, Estimated GFR 158, Est GFR ( Amer) 191 D, Glucose 92, Calcium 8.5 Exam: General appearance: Alert, awake, no acute distress Cardiovascular: regular rate & rhythm Respiratory: no respiratory distress; speaks in full sentences ABD: soft and nontender. Skin: no gross abnormalities Neuro: alert, awake oriented x 3 Psych: Appropriate mood and affect On examination of the right lower extremity, the limb lengths are equal. The alignment is neutral. The dressings over the hip/thigh are clean, dry and intact. I have removed the surgical dressings today leaving behind the Derm[place] dressings. The incisions look clean, dry and healthy. Attempted movements of the hip are painful. Distal neurovascular status is intact. Distal pulses are 1+. Distal sensation is intact to light touch throughout. No motor deficits note d distally. Calf is soft and nontender. No clinical signs of DVT noted. - Urinary Catheter Management Bradley Cath placed during this visit: no Progress Note: A&P (1) Closed right hip fracture Status: Acute Assessment and Plan for All Diagnoses:: I have reviewed the clinical findings and progress with the patient. Patient is doing well and advised her to continue mobilization weight bearing as tolerated. She is being discharged today and I like to see her back for follow-up in the office in 2 weeks time. Continue PT/OT, pain management with as needed narcotic analgesics. Recommend DVT prophylaxis for 6 weeks postop- appropriate agents include Lovenox, Aspirin 325 mg, Xarelto (Rivaroxaban), Eliquis (apixaban) and Coumadin. Follow-up in my office in 2 weeks? time with check x-ray. Please feel free to call our office at [phone] for any orthopaedic questions. Continue medical management as per Dr. Franklin.
== END 2020-11-15 09:35 | disposition home or self-care (01) ==
LOC: ER 10:55 → 2ND 11:42
PROVIDERS: Orthopaedic Surgery; Admitting Provider Family Medicine; Emergency Provider Emergency Medicine; PCP Family Medicine; Visit Provider Family Medicine
PROC: (CPT 27245; principal; 2020-11-13 17:00)
DX: S72.144A Nondisplaced intertrochanteric fracture of right femur, initial encounter for closed fracture (principal); W01.0XXA Fall on same level from slipping, tripping and stumbling without subsequent striking against object, initial encounter; Z20.822 Contact with and (suspected) exposure to COVID-19; M19.90 Unspecified osteoarthritis, unspecified site; Y92.512 Supermarket, store or market as the place of occurrence of the external cause
CPT/HCPCS: 27245; G0378; 36415; 71045; 73502; 80048; 80053; 81001; 85025; 86850; 87581; 87633; 87798; 93005; 96365; 96375; 97162; 99285; C1713; C1769; J2405; J2704; J3370

== ENCOUNTER → 2020-11-27 13:11 | Outpatient (CLI) | payer MEDICARE, SELFPAY ==
--- NOTE | 2020-11-27 13:15 | XR_ITS ---
PROCEDURE: XR HIP RT 2-3V W/PELVIS CLINICAL INDICATION: s/p RT hip fx Follow-up fracture COMPARISON: CR,XA XR HIP RT 2-3V W/PELVIS from 11/13/2020 CR XR HIP RT 2-3V W/PELVIS from 11/13/2020 FINDINGS: Gamma nail with short intramedullary diane is placed in the right proximal femur with good alignment of the intertrochanteric fracture fragments. There is an old fracture of the medial wall of the acetabulum IMPRESSION: Good alignment status post ORIF right hip Dictated by: Caleb Villalobos MD 11/27/2020 16:08 Caleb Villalobos MD in [place] 11/27/2020 16:08
== END ==
PROVIDERS: PCP Family Medicine; Visit Provider Orthopaedic Surgery
DX: S72.001A Fracture of unspecified part of neck of right femur, initial encounter for closed fracture (principal); Z09 Encounter for follow-up examination after completed treatment for conditions other than malignant neoplasm
CPT/HCPCS: 73502

== ENCOUNTER → 2020-12-08 08:47 | Outpatient (CLI) | payer MEDICARE, SELFPAY ==
--- NOTE | 2020-12-08 08:47 | XR_ITS ---
PROCEDURE: XR DEXA AXIAL SKELETON CLINICAL HISTORY: s/p hip fracture COMPARISON: No exams were available for comparison FINDINGS: The wrist 33 percent BMD is 0.682 with a T-score of -0.2. The left hip BMD is 0.614 with a T-score of -2.7. The lumbar spine BMD is 0.933 with a T-score of -1.0. IMPRESSION: This patient is considered osteoporotic according to the World Health Organization criteria. Fracture risk is high. Treatment is advised. Based on these results a follow-up exam is recommended in 1 year. Dictated by: Caleb Villalobos MD 12/08/2020 14:31 Caleb Villalobos MD in [place] 12/08/2020 14:31
== END ==
PROVIDERS: PCP Family Medicine; Visit Provider Orthopaedic Surgery
DX: Z78.0 Asymptomatic menopausal state (principal)
CPT/HCPCS: 77080

== ENCOUNTER → 2020-12-25 13:17 | Outpatient (CLI) | payer MEDICARE, SELFPAY ==
--- NOTE | 2020-12-25 13:22 | XR_ITS ---
PROCEDURE: XR HIP RT 2-3V W/PELVIS CLINICAL INDICATION: s/p rt hip COMPARISON: CR XR HIP RT 2-3V W/PELVIS from 11/27/2020 FINDINGS: Status post ORIF right intertrochanteric fracture with gamma nail and short intramedullary diane in good position. No evidence of orthopedic complications. Fracture line is less visible consistent with healing. There is an old fracture of the right acetabulum IMPRESSION: Good alignment status post ORIF healing right intertrochanteric fracture Dictated by: Caleb Villalobos MD 12/25/2020 13:55 Caleb Villalobos MD in [place] 12/25/2020 13:55
== END ==
PROVIDERS: PCP Family Medicine; Visit Provider Orthopaedic Surgery
DX: S72.001A Fracture of unspecified part of neck of right femur, initial encounter for closed fracture (principal)
CPT/HCPCS: 73502

== ENCOUNTER → 2021-02-03 08:52 | Outpatient (CLI) | payer MEDICARE, SELFPAY ==
--- NOTE | 2021-02-03 09:02 | XR_ITS ---
PROCEDURE: XR HIP RT 2-3V W/PELVIS CLINICAL INDICATION: RT femur nailing, sx 11/13/20 COMPARISON: CR XR HIP RT 2-3V W/PELVIS from 12/25/2020 FINDINGS: Good alignment status post gamma nail insertion with short intramedullary diane stabilizing the intertrochanteric fracture overall not significantly changed. There is an area of exostosis involving the medial aspect of the right acetabular region not significantly changed and may be due to an old fracture. Mild osteoarthritic changes are present involving the right hip. There is a moderate amount of retained colonic feces in the rectosigmoid region. IMPRESSION: No change good alignment status post ORIF right intertrochanteric fracture Dictated by: Caleb Villalobos MD 02/03/2021 16:22 Caleb Villalobos MD in [place] 02/03/2021 16:22
== END ==
PROVIDERS: PCP Family Medicine; Visit Provider Orthopaedic Surgery
DX: Z09 Encounter for follow-up examination after completed treatment for conditions other than malignant neoplasm (principal)
CPT/HCPCS: 73502

== ENCOUNTER → 2021-03-08 10:01 | Outpatient (CLI) | payer MEDICARE, SELFPAY | PROVIDERS: Visit Provider Surgery | DX: Z01.812 Encounter for preprocedural laboratory examination (principal); Z11.52 Encounter for screening for COVID-19; Z12.11 Encounter for screening for malignant neoplasm of colon | CPT/HCPCS: C9803; U0003; U0005 ==

== ENCOUNTER 2021-03-10 07:09 | Day surgery (SDC) | payer MEDICARE, SELFPAY ==
[2021-03-10 07:18] VITALS: BMI 18.9
[2021-03-10 07:22] VITALS: BP 140/75; PULSE 96; RESP 18; TEMP 37.5; O2SAT 97
--- NOTE | 2021-03-10 07:56 | P.PN_ITS ---
[facility] Anesthesia Checklist - Patient Identification Patient Identification: Arm Band - Structural Data Admitted From: Home Planned Operative Procedure/s: colonoscopy Consent for Planned Operative Procedure(s) Verified: Yes Verified Documents: Surgical Consent, History and Physical - NPO Status Verified Time NPO: 00:00 - Additional verifications Anesthesia Reactions: No - Airway Assessment C-Spine Mobility Assessed: Yes (mp2) TMJ Mobility Assessed: Yes Dentition: Edentulous - Neurological Assessment Level of Consciousness: Awake, Alert - Anesthesia Plan Anesthesia Risk discussed: Yes Anesthesia Plan: Verified ASA Class: II Anesthesia Type: MAC [facility] History I have reviewed the patient's past medical history: Yes Medical History: Denies:: Cancer, Diabetes Mellitus Type 1, Diabetes Mellitus Type 2, Internal Pacemaker, MRSA, Seizures *Have you ever received a pneumonia vaccine?: No *Have you received a flu vaccine this season?: No Other Medical History: Reports: Arthritis Anesthesia experience/problems:: nac Other Surgeries: Yes: Cholecystectomy, Colonoscopy, Hysterectomy-Total, Other. No: Pacemaker Amputation: No Fractures: Yes - *Social History Last grade of school completed: High school graduate Smoking Status: Never smoker Alcohol Intake: never Substance Use Type: denies use *Occupational Status:: disabled *Travel in the last 8 weeks: None Family Hx:: No significant family history
[2021-03-10 08:03] VITALS: O2SAT 97
[2021-03-10 09:06] VITALS: BP 120/65; PULSE 92; RESP 22; TEMP 36.7; O2SAT 100
--- NOTE | 2021-03-10 09:06 | HMH.SCOPE ---
- Procedure: Date: 03/10/21 Patient Date of :: 1950 Procedure Performed:: Total colonoscopy with polypectomy and injection of Abi ink Indications:: Patient is a 70-year-old female referred by Dr. Franklin for colonoscopy. She has had a 56 pound unintentional weight loss this year. She had a previous colonoscopy in [address] Carpenter revealing diverticulosis. Performing Provider:: Hector Pepper MD Referring Provider:: Lino Franklin MD Sedation:: MAC sedation Procedure:: Patient was taken to endoscopy procedure room and positioned in lateral decubitus position. Adequate intravenous sedation was achieved with anesthesia titration of propofol. Digital examination was performed which was unremarkable. Variable stiffness Olympus colonoscope was inserted via the anus. It was advanced to the cecum with some minor difficulty due to floppiness and redundancy of the colon. The colonic preparation was very poor. With thorough irrigation and suctioning the ileocecal valve and appendiceal orifice were identified. Colonoscope was advanced into the terminal ileum which was grossly normal. Colonoscope was withdrawn into the colon. She had pandiverticulosis most pronounced in the sigmoid colon. There was a large sessile ridge polyp lesion in the ascending colon spanning 30 to 40 mm. This was removed in a piecemeal fashion using combination of hot snare and cold cutting snare. There was an additional polyp at this location removed with cold cutting snare as well. This was all sent as a single specimen. The area was marked with Abi ink for future reference. Colonoscope was withdrawn through the remainder of the colon. Despite thorough irrigation and suctioning prep was poor and visualization was poor. There was some diverticuli most pronounced in the sigmoid colon. Colonoscope was withdrawn. Findings:: Large sessile ridge polyp spanning 30 to 40 mm in the ascending colon. Adjacent smaller polyp. Extremely poor preparation And diverticulosis most pronounced in the sigmoid colon Recommendations:: Pending the pathology likely repeat colonoscopy with alternate aggressive 2-day bowel prep in 6 months. However, obviously if there is any invasive component to the polyp in the ascending colon may need resection. Overall, no obvious etiology that would explain the weight loss. Complications:: None immediately apparent Estimated blood obtained (mL): 3
[2021-03-10 09:16] VITALS: BP 150/61; PULSE 88; RESP 20; O2SAT 100
[2021-03-10 09:26] VITALS: BP 125/59; PULSE 85; RESP 16; O2SAT 100
[2021-03-10 09:36] VITALS: BP 154/76; PULSE 85; RESP 18; O2SAT 100
== END 2021-03-10 09:40 | disposition home or self-care (01) ==
LOC: OUTP 07:11
PROVIDERS: PCP Family Medicine; Visit Provider Surgery
PROC: 0DJD8ZZ Inspection of Lower Intestinal Tract, Via Natural or Artificial Opening Endoscopic (ICD-10-PCS; principal; 2021-03-10 08:30)
DX: Z12.11 Encounter for screening for malignant neoplasm of colon (principal); K63.5 Polyp of colon; K57.32 Diverticulitis of large intestine without perforation or abscess without bleeding; K56.2 Volvulus; M19.90 Unspecified osteoarthritis, unspecified site; Z79.82 Long term (current) use of aspirin; Z88.6 Allergy status to analgesic agent; Z90.49 Acquired absence of other specified parts of digestive tract; Z90.710 Acquired absence of both cervix and uterus
CPT/HCPCS: 45381; 45385; 88305

== ENCOUNTER → 2021-06-01 08:48 | Outpatient (CLI) | payer MEDICARE, SELFPAY ==
--- NOTE | 2021-06-01 08:54 | XR_ITS ---
FINAL REPORT CLINICAL HISTORY: s/p femur nailing weight bearing COMPARISON: February 03, 2021 FINDINGS: RIGHT HIP Two weight-bearing views of the right hip with an AP pelvis demonstrate no acute fracture or dislocation. There are postoperative changes from ORIF of the proximal right femur which is stable. There are mild degenerative changes. The visualized bony structures are well aligned. There are multiple phleboliths in the pelvis. IMPRESSION: Postoperative changes from ORIF of the proximal right femur, stable. Reviewed, Interpreted and Dictated by Hector Dia III, MD Transcribed by Dana Figueredo Authenticated by Hector Dia III, MD on 06/01/2021 10:29:00 AM [facility]
--- NOTE | 2021-06-01 09:41 | XR_ITS ---
FINAL REPORT CLINICAL HISTORY: pain COMPARISON: December 25, 2020 FINDINGS: LEFT HIP Two views of the left hip demonstrate a deformity of the left femoral neck consistent with an impacted fracture which is new since November 2020 but of uncertain age. There are mild degenerative changes. No soft tissue abnormality is seen. IMPRESSION: Deformity of left femoral neck consistent with impacted fracture of uncertain age but new since November 2020. Could be further evaluated with a CT or MRI. Reviewed, Interpreted and Dictated by Hector Dia III, MD Transcribed by Dana Figueredo Authenticated by Hector Dia III, MD on 06/01/2021 10:28:59 AM [facility]
--- NOTE | 2021-06-01 11:26 | MR_ITS ---
FINAL REPORT CLINICAL HISTORY: hip fracture. ABNORMAL HIP X-RAY 06-01-21. CALL REPORT [phone] FINDINGS: Multiplanar MR imaging of the left hip was performed without contrast. There are postoperative changes in the right femur which causes magnetic susceptibility artifact in this region. There is an impacted left femoral neck fracture with mild bone marrow edema. The appearance is likely subacute. There is edema in the bilateral adductor musculature versus hemorrhage. There is a small chronic partial tear at the origin of the right hamstring tendons. There is a large chronic partial tear at the origin of the left hamstring tendons. Small left hip joint effusion is identified. IMPRESSION: Impacted left femoral neck fracture, likely subacute. Edema versus hemorrhage in the bilateral adductor musculature. Chronic partial tears in the bilateral hamstring tendons. Ordering physician was notified of findings at time of dictation. Reviewed, Interpreted and Dictated by Hector Dia III, MD Transcribed by Jeanne Espino Authenticated by Hector Dia III, MD on 06/01/2021 01:13:[address] [facility]
== END ==
PROVIDERS: PCP Family Medicine; Visit Provider Orthopaedic Surgery
DX: S72.001A Fracture of unspecified part of neck of right femur, initial encounter for closed fracture (principal); M25.551 Pain in right hip
CPT/HCPCS: 73502; 73721

== ENCOUNTER → 2022-07-29 11:42 | Outpatient (CLI) | payer MEDICARE, SELFPAY ==
--- NOTE | 2022-07-29 11:51 | XR_ITS ---
FINAL REPORT CLINICAL HISTORY: ACQUIRED DEFORMITY OF RT ARM PAIN AFTER FALL LAST NIGHT FINDINGS: AP and lateral views of the right forearm are obtained. There is no prior exam for comparison. There is a displaced fracture of the distal ulnar shaft. There is dorsal and radial displacement of the distal fracture fragment. No other fracture is identified. There is mild osteopenia. There is soft tissue edema at the wrist. IMPRESSION: Displaced fracture of the ulna as described above. Reviewed, Interpreted and Dictated by Lauren Hilliard MD Transcribed by Dana Figueredo Authenticated and [facility]
== END ==
PROVIDERS: PCP Nurse Practitioner Family; Visit Provider Nurse Practitioner Family
DX: M79.631 Pain in right forearm (principal); M21.80 Other specified acquired deformities of unspecified limb
CPT/HCPCS: 73090

== ENCOUNTER 2023-05-22 14:33 | Emergency (ER) | payer MEDICARE, SELFPAY ==
[2023-05-22] VITALS (7 sets, daily range): BP systolic 95–138; BP diastolic 44–108; PULSE 74–112; RESP 13–22; TEMP 36.6–36.7; O2SAT 94–98; BMI 26.4
--- NOTE | 2023-05-22 14:47 | ECG_ITS ---
APPROVED REPORT Exam: Resting ECG HR:97 bpm ECG Measurements Heart Rate 97 AXES QRSd 93 QRS 52 QT 351 T 43 QTc 405 Conclusion ATRIAL FIBRILLATION MODERATE ST DEPRESSION [0.05+ mV ST DEPRESSION] ABNORMAL ECG UNCONFIRMED REPORT Electronically signed by : Lino Gregg MD 05/26/2023 14:50:19
--- NOTE | 2023-05-22 14:52 | CT_ITS ---
PROCEDURE INFORMATION: Exam: CT Cervical Spine Without Contrast Exam date and time: 05/22/2023 3:58 PM Age: 72 years old Clinical indication: Injury or trauma; Fall; Blunt trauma; Additional info: Fall> 3 wks ago, weak TECHNIQUE: Imaging protocol: Computed tomography of the cervical spine without contrast. Radiation optimization: All CT scans at this facility use at least one of these dose optimization techniques: automated exposure control; mA and/or kV adjustment per patient size (includes targeted exams where dose is matched to clinical indication); or iterative reconstruction. COMPARISON: CT HEAD/BRAIN WO CON 05/22/2023 3:55 PM FINDINGS: Bones/joints: Suboptimal patient positioning. Osteopenia. No acute fracture identified. There is mild grade 1 anterolisthesis of C5 on C6. Cervical alignment is otherwise maintained. Osseous fusion of the C6 and C7 vertebral bodies. Multilevel degenerative changes with disc space narrowing and uncovertebral and facet hypertrophy with no severe osseous spinal canal or neural foraminal stenosis. Lungs: Lung apices are unremarkable. Soft tissues: Unremarkable. IMPRESSION: Multilevel degenerative changes with no acute osseous abnormality.
--- NOTE | 2023-05-22 14:52 | CT_ITS ---
PROCEDURE INFORMATION: Exam: CT Head Without Contrast Exam date and time: 05/22/2023 3:55 PM Age: 72 years old Clinical indication: Injury or trauma; Fall; Blunt trauma (contusions or hematomas); Consciousness not specified; Additional info: Fall> 3 wks ago, weak TECHNIQUE: Imaging protocol: Computed tomography of the head without contrast. Radiation optimization: All CT scans at this facility use at least one of these dose optimization techniques: automated exposure control; mA and/or kV adjustment per patient size (includes targeted exams where dose is matched to clinical indication); or iterative reconstruction. COMPARISON: No relevant prior studies available. FINDINGS: Brain: There appear to be focal areas of low density in both cerebellar hemispheres but this is likely due to skull base artifact since it is not seen on the sagittal and coronal reconstructions. No acute cerebral infarction or intracranial hemorrhage. No mass. Cerebral ventricles: The ventricles appear enlarged, but not out of proportion to the degree of parenchymal volume loss. Paranasal sinuses: Mucoperiosteal thickening in both maxillary antra without fluid levels in the paranasal sinuses. Mastoid air cells: Visualized mastoid air cells are well aerated. Bones/joints: No acute fracture. Soft tissues: Unremarkable. Vasculature: Atherosclerosis. IMPRESSION: Limited examination due to patient motion without acute findings.
--- NOTE | 2023-05-22 14:52 | XR_ITS ---
PROCEDURE INFORMATION: Exam: XR Chest Exam date and time: 05/22/2023 4:13 PM Age: 72 years old Clinical indication: Injury or trauma; Fall; Blunt trauma (contusions or hematomas); Additional info: Fall, pain, bruising TECHNIQUE: Imaging protocol: Radiologic exam of the chest. Views: 1 view. COMPARISON: CT ANGIO CHEST PE PROTOCOL 05/22/2023 4:04 PM FINDINGS: Lungs: Mandible obscures a small portion of the right apex. Otherwise, lungs are clear. No pulmonary consolidation or pulmonary edema. Small calcified granuloma in the right upper lobe. Pleural spaces: No pleural effusion. No pneumothorax. Heart/Mediastinum: Cardiomediastinal silhouette is normal. Bones/joints: No acute abnormality. IMPRESSION: No acute abnormality.
--- NOTE | 2023-05-22 14:52 | XR_ITS ---
PROCEDURE INFORMATION: Exam: XR Right Knee Exam date and time: 05/22/2023 4:13 PM Age: 72 years old Clinical indication: Injury or trauma; Fall; Blunt trauma; Knee; Right; Additional info: Fall, pain, bruising TECHNIQUE: Imaging protocol: Radiologic exam of the right knee. Views: 3 views. COMPARISON: CT ANGIO LE BI 05/22/2023 4:09 PM FINDINGS: Bones/joints: Acute comminuted distal femoral diaphyseal fracture with lateral displacement of the major distal fragment. There are osseous densities adjacent to the lateral femoral condyle, indeterminate if these are acute fracture fragments or chronic degenerative changes. Osteopenia. Large joint effusion. Soft tissues: Unremarkable. IMPRESSION: Acute comminuted distal femoral diaphyseal fracture with lateral displacement of the major distal fragment. There are osseous densities adjacent to the lateral femoral condyle, indeterminate if these are acute fracture fragments or chronic degenerative changes. Large joint effusion.
--- NOTE | 2023-05-22 14:52 | XR_ITS ---
PROCEDURE INFORMATION: Exam: XR Right Hip Exam date and time: 05/22/2023 4:13 PM Age: 72 years old Clinical indication: Injury or trauma; Fall; Blunt trauma (contusions or hematomas); Prior surgery; Surgery date: 6+ months; Surgery type: Right hip; Additional info: Fall, pain, bruising TECHNIQUE: Imaging protocol: Radiologic exam of the right hip. Views: 2 or 3 views hip with pelvis when performed. COMPARISON: CR XR HIP RT 2-3V W/PELVIS 06/01/2021 9:23 AM FINDINGS: Bones/joints: Postoperative changes from ORIF of the proximal right femur. Degenerative changes of the right hip with no evidence of acute fracture or dislocation or acute hardware complication. Sacrum is partially obscured by bowel gas and excreted contrast within the urinary bladder. Osteopenia. Soft tissues: Unremarkable. IMPRESSION: Postoperative and degenerative changes of the right hip with no acute osseous abnormality or evidence of hardware complication.
--- NOTE | 2023-05-22 14:52 | XR_ITS ---
PROCEDURE INFORMATION: Exam: XR Right Tibia and Fibula Exam date and time: 05/22/2023 4:13 PM Age: 72 years old Clinical indication: Injury or trauma; Fall; Blunt trauma; Lower leg; Right; Additional info: Fall, pain, bruising TECHNIQUE: Imaging protocol: Radiologic exam of the right tibia and fibula. Views: 2 views. COMPARISON: CT ANGIO LE BI 05/22/2023 4:09 PM FINDINGS: Bones/joints: Right tibia and fibula are intact with no acute fracture or dislocation. Osteopenia. Partially imaged comminuted, displaced distal femoral fracture with knee effusion redemonstrated. Soft tissues: Soft tissue edema. IMPRESSION: 1. No acute fracture or dislocation of the right tibia or fibula. 2. Partially imaged comminuted, displaced distal femoral fracture with knee effusion redemonstrated.
--- NOTE | 2023-05-22 14:52 | CA_ITS ---
FINAL REPORT TECHNIQUE: Bilateral lower extremity venous duplex was performed with augmentation and compression. CLINICAL HISTORY: SIGNIFICANT EDEMA/ERYTHEMA BLE'S X SEVERAL WEEKS FINDINGS: There is partial thrombus in the right popliteal vein and right gastrocnemius vein. Otherwise, proper flow is seen throughout the deep venous systems bilaterally. IMPRESSION: Partial thrombus in the right popliteal vein and right gastrocnemius vein. Left lower extremity unremarkable. Reviewed, Interpreted and Dictated by Josue Worthy MD Transcribed by Fifi Fragoso Authenticated and [facility]
--- NOTE | 2023-05-22 14:52 | XR_ITS ---
PROCEDURE INFORMATION: Exam: XR Right Femur Exam date and time: 05/22/2023 4:13 PM Age: 72 years old Clinical indication: Injury or trauma; Fall; Blunt trauma; Thigh or upper leg; Prior surgery; Surgery date: 6+ months; Surgery type: Right hip; Additional info: Fall, pain, bruising TECHNIQUE: Imaging protocol: Radiologic exam of the right femur. Views: 2 views. COMPARISON: CT ANGIO LE BI 05/22/2023 4:09 PM FINDINGS: Bones/joints: Right proximal femoral intramedullary diane and interlocking screw. Degenerative changes of the right hip with no evidence of acute fracture or dislocation. No evidence of acute hardware complication. Acute comminuted distal femoral diaphyseal fracture with lateral displacement of the major distal fragment. There are osseous densities adjacent to the lateral femoral condyle, indeterminate if these are acute fracture fragments or chronic degenerative changes. Osteopenia. Large joint effusion. Soft tissues: Unremarkable. IMPRESSION: Acute comminuted distal femoral diaphyseal fracture with lateral displacement of the major distal fragment. There are osseous densities adjacent to the lateral femoral condyle, indeterminate if these are acute fracture fragments or chronic degenerative changes. Large joint effusion.
--- NOTE | 2023-05-22 15:05 | PC.NURSE ---
Pt changed into gown, brief changed, barrier cream applied to abdominal fold. Call light within reach.
--- NOTE | 2023-05-22 15:09 | PC.NURSE ---
RT called about VBG
[2023-05-22 15:19] LABS: VBG Base Excess -2.5 mmol/L (-2.4-2.3); VBG HCO3 23.7 mmol/L (23-30); VBG Oxygen Saturation 74.9 % (50-70); VBG PCO2 47.4 mmol/L (35-51); VBG PH 7.32 mmol/L (7.31-7.41); VBG PO2 44.2 mmol/L (28-40); VBG Total CO2 25.1 mmol/L (23-27)
[2023-05-22 15:23] LABS: Basophils # 0.1 K/mm3 (0-0.2); Basophils % 0.5 % (0.1-2.0); Eosinophils # 0.1 K/mm3 (0.0-0.4); Hematocrit 42.5 % (37.0-47.0); Lymphocytes # 1.4 K/mm3 (0.7-4.5); Mean Corpuscular Hemoglobin 30.2 pg (27.0-31.2); Mean Corpuscular Volume 91.4 fl (81-99); Mean Platelet Volume 8.1 fl (7.4-10.4); Monocytes # 0.4 K/mm3 (0.1-1.0); Monocytes % 5.2 % (1.7-9.3); Neutrophils # 6.3 K/mm3 (1.8-7.8); Neutrophils % 76.2 % (37.0-80.0); Platelet Count 278 K/mm3 (142-424); Red Blood Count 4.65 M/mm3 (4.20-5.40); Red Cell Distribution Width 13.5 % (11.5-17.5); White Blood Count 8.2 K/mm3 (4.8-10.8)
--- NOTE | 2023-05-22 15:27 | PC.NURSE ---
Vascular at for doppler
[2023-05-22 15:30] LABS: Alanine Aminotransferase 38 U/L (12-78); Albumin Level 3.4 g/dl (3.5-5.0); Albumin/Globulin Ratio 1.1 (1.1-1.8); Alkaline Phosphatase 100 U/L (38-126); Anion Gap 10.6 mEq/L (5-15); Aspartate Amino Transferase 49 U/L (14-36); Blood Urea Nitrogen 17 mg/dl (7-17); Calcium 8.3 mg/dl (8.4-10.2); Carbon Dioxide 28 mmol/L (22.0-30.0); Chloride 101 mmol/L (98-107); Creatinine Clearance Estimated 59 mL/min (50-200); Estimated Glomerular Filt Rate 122 ml/min (>60); GFR (African American) 147 ML/MIN (>60); Globulin 3.2 g/dL (1.3-3.2); Glucose 93 mg/dl (74-100); Potassium 3.6 mmoL/L (3.5-5.1); Sodium 136 mmol/L (136-145); Total Protein,Serum 6.6 g/dl (6.3-8.2)
[2023-05-22 15:31] LABS: Creatine Kinase 248 U/L (30-135); Lactic Acid 1.9 mmol/L (0.7-2.1)
[2023-05-22 15:32] LABS: INR 1.15 (0.9-1.1); Prothrombin Time 12.3 seconds (10.1-12.5)
[2023-05-22 15:35] LABS: C-Reactive Protein 82.9 mg/L (0-4)
--- NOTE | 2023-05-22 15:35 | CT_ITS ---
PROCEDURE INFORMATION: Exam: CTA Abdominal Aorta and Bilateral Lower Extremities (Run-off) With Contrast Exam date and time: 05/22/2023 4:09 PM Age: 72 years old Clinical indication: Injury or trauma; Fall; Blunt trauma; Other: Rle; Additional info: Fall, R thigh hematoma, L morales swelling TECHNIQUE: Imaging protocol: Computed tomographic angiography of the of the abdominal aorta, pelvis and bilateral lower extremities with contrast. 3D rendering (Not supervised by radiologist): MIP and/or 3D reconstructed images were created by the technologist. Radiation optimization: All CT scans at this facility use at least one of these dose optimization techniques: automated exposure control; mA and/or kV adjustment per patient size (includes targeted exams where dose is matched to clinical indication); or iterative reconstruction. Contrast material: ISOVUE; Contrast volume: 100 ml; Contrast route: IV; COMPARISON: CA VENOUS DOPPLER LE 05/22/2023 3:21 PM FINDINGS: Aorta: No aortic aneurysm. No aortic dissection. Celiac trunk and mesenteric arteries: The celiac artery and SMA artery are patent Renal arteries: No occlusion or significant stenosis. Right iliac arteries: No occlusion or significant stenosis. Right femoral/popliteal arteries: No occlusion or significant stenosis. Right infrapopliteal arteries: No occlusion or significant stenosis. Left iliac arteries: No occlusion or significant stenosis. Left femoral/popliteal arteries: No occlusion or significant stenosis. Left infrapopliteal arteries: No occlusion or significant stenosis. Liver: No mass. Gallbladder and bile ducts: Unremarkable. No calcified stones. No ductal dilation. Pancreas: 16 mm cystic structure in the body of the pancreas may represent pancreatic cyst, pancreatic pseudocyst or pancreatic cystic neoplasm.. Spleen: Normal. No splenomegaly. Adrenal glands: Normal. No mass. Kidneys and ureters: Normal. No mass. Stomach and bowel: Unremarkable. No obstruction. No mucosal thickening. Appendix: No evidence of appendicitis. Urinary bladder: Unremarkable. No mass. Reproductive: Unremarkable as visualized. Intraperitoneal space: Unremarkable. No free air. No significant fluid collection. Lymph nodes: No lymphadenopathy. Bones/joints: Screw in the right femoral neck. Intramedullary diane in the right femur. Comminuted displaced distal right femur fracture.. Loculated fluid collections around the femur and in the thigh may represent abscess or evolving hematoma.. Cranial caudal dimension of the fluid collections measures over 20 cm. The fluid collections may be continuous. Small left suprapatellar joint effusion Soft tissues: Edema in the subcutaneous fat of the left lower leg IMPRESSION: 1. Comminuted displaced distal right femur fracture.. 2. Loculated fluid collections around the femur and in the thigh may represent abscess or evolving hematoma.. Cranial caudal dimension of the fluid collections measures over 20 cm. The fluid collections may be continuous. 3. 16 mm cystic structure in the body of the pancreas may represent pancreatic cyst, pancreatic pseudocyst or pancreatic cystic neoplasm..
[2023-05-22 15:41] LABS: D-Dimer > 8.10 ug/mL (0.0-0.5)
--- NOTE | 2023-05-22 15:41 | CT_ITS ---
PROCEDURE INFORMATION: Exam: CTA Chest With Contrast Exam date and time: 05/22/2023 4:04 PM Age: 72 years old Clinical indication: Other: Dvt, tachy TECHNIQUE: Imaging protocol: Computed tomographic angiography of the chest with contrast. Exam focused on the arteries. 3D rendering (Not supervised by radiologist): MIP and/or 3D reconstructed images were created by the technologist. Radiation optimization: All CT scans at this facility use at least one of these dose optimization techniques: automated exposure control; mA and/or kV adjustment per patient size (includes targeted exams where dose is matched to clinical indication); or iterative reconstruction. Contrast material: ISOVUE; Contrast volume: 70 ml; Contrast route: INTRAVENOUS (IV); COMPARISON: CR XR CHEST PORTABLE 11/13/2020 10:48 AM FINDINGS: Pulmonary arteries: Motion limits evaluation of the segmental and subsegmental pulmonary arteries but there appear to be pulmonary emboli within the distal right middle lobe pulmonary artery and its segmental branches, in the distal anterior right lower lobe segmental artery and its branches, and in an anterior left upper lobe segmental/subsegmental artery. No pulmonary emboli within the main pulmonary artery or main right and left pulmonary arteries. Main pulmonary artery is borderline dilated measuring 3.1 cm in diameter. Aorta: No thoracic aortic aneurysm, dissection, or evidence of acute abnormality. Ascending thoracic aorta measures 3.7 cm in diameter. Mild scattered calcified thoracic aortic atherosclerosis and along the included upper abdominal aorta. Right renal artery stenosis. Lungs: Lungs with respiratory motion. Mild dependent opacities, favor atelectasis. Calcified granuloma in the left upper lobe. Pleural spaces: No pneumothorax. No pleural effusion. Heart: Borderline enlarged heart. No pericardial effusion. Heart RV/LV ratio: 1.1 Coronary arteries: Multi-vessel coronary artery calcifications. Lymph nodes: Calcified hilar lymph nodes compatible with remote granulomatous disease. Bones/joints: No acute abnormality. Multilevel degenerative changes of the included spine. Soft tissues: Unremarkable. Other findings: No acute abnormality in the included upper abdomen. There is a partially imaged 2 cm hypodense lesion in the pancreas measuring fluid density. IMPRESSION: 1. Motion limits evaluation of the segmental and subsegmental pulmonary arteries but there appear to be pulmonary emboli within the distal right middle lobe pulmonary artery and its segmental branches, in the distal anterior right lower lobe segmental artery and its branches, and in an anterior left upper lobe segmental/subsegmental artery. No pulmonary emboli within the main pulmonary artery or main right and left pulmonary arteries. RV/LV ratio: 1.1. Borderline dilated main pulmonary artery. 2. No thoracic aortic aneurysm, dissection, or evidence of acute abnormality. Proximal right renal artery stenosis. Multi-vessel coronary artery calcifications. 3. There is an incompletely imaged 2 cm hypodense lesion in the pancreas measuring fluid density. Recommend nonemergent multiphase CT or MR abdomen to fully evaluate to ensure this is a benign cystic lesion. 4. Other chronic and incidental findings as detailed above.
--- NOTE | 2023-05-22 15:42 | PC.NURSE ---
PT GOING FOR CT'S
[2023-05-22 15:52] LABS: Erythrocyte Sedimentation Rate 27 mm/hr (0-30)
--- NOTE | 2023-05-22 15:56 | ED_ITS ---
Discharge Plan Disposition Patient Disposition: Still a Patient Prescriptions Prescriptions: No Action trospium 20 mg tablet 20 mg PO BID Qty: 60 0RF Rx Instructions: administer on an empty stomach Referrals Follow up/Referrals: Estrellita Persaud APRN [Primary Care Provider] - See instructions Clinical Impressions Clinical Impression: Leg swelling, Acute deep vein thrombosis (DVT) of right lower extremity, Hematoma of right thigh, Decubitus ulcer of sacral area Discharge ED Provider: Rosetta Haynes General Adult HPI <Rosetta Haynes DO - Last Filed: 05/22/23 16:24> General Chief complaint: Fall Stated complaint: left leg pain Time Seen by Provider: 05/22/23 14:42 Mode of Arrival: Family Vehicle Source of Information: Patient and Spouse Limitations: Physical Limitations Description of Symptoms (Recalled from ER Triage Doc. by RN): Pt. arrived to ED via family vehicle due to a fall approx. 1 week ago. Pt. is a poor historian. states she feel about 1 week ago. She states she can't walk and complains of right leg pain with movement. Bilateral lower extremities are edematous. History of Present Illness HPI narrative: This patient is a 72-year-old female who denies any significant past medical history presenting to the emergency department for evaluation with concern for frequent falling, inability to walk, and significant right leg pain. She does have bilateral lower leg swelling. According to her who helps take care of her, she has had multiple falls over the last year. Her last fall he thinks was anywhere between 1 to 3 weeks ago. She has not fallen over the last few days. Patient's notes that she was previously ambulatory but since this fall that happened anywhere between 1 to 3 weeks ago, she has not been able to walk. He has been helping her to the bathroom, but that is pretty much the only time that she is able to get up. She is starting develop a bedsore. Patient has memory impairment, but she only complains of severe right leg pain at this time. She saw her primary care provider for the redness, pain, and swelling in her legs at some point over the last few weeks, and she was prescribed Keflex, which she has been taking with no improvement. Related Data Previous Rx's Medication Instructions Recorded trospium 20 mg tablet 20 mg PO BID #60 tabs 04/05/23 Allergies Allergy/AdvReac Type Severity Reaction Status Date / Time codeine AdvReac Nausea Verified 04/12/23 11:00 PFSH <Rosetta Haynes DO - Last Filed: 05/22/23 16:24> [facility] Disclaimer: The information contained in this section may have been updated after the patient was seen, as this information can be updated by other users. Surgical History H/O: hysterectomy History of cholecystectomy Family History Other Cancer Diabetes Heart attack Hypertension Social History Smoking Status: Never smoker alcohol intake: never substance use type: denies use current occupational status: disabled Travel in the last 8 weeks: None caffeine: Yes <Rosetta Haynes DO - Last Filed: 05/22/23 16:24> ROS Obtained: Yes All systems reviewed & no additional complaints except as do cumented Physical Exam <Rosetta Haynes DO - Last Filed: 05/22/23 16:24> General General appearance: alert and in no apparent distress Head Head exam: atraumatic and normocephalic Eye Eye exam: Present normal appearance, PERRL and EOMI ENT ENT exam: Present normal exam, normal oropharynx, mucous membranes moist and normal external ear exam Neck Neck exam: Present normal inspection, full ROM and trachea midline; Absent tenderness Chest Chest inspection: Present normal inspection and symmetric chest wall rise; Absent tenderness Respiratory Respiratory exam: Present normal lung sounds bilaterally; Absent respiratory distress, wheezes, stridor or accessory muscle use Cardiovascular Cardiovascular exam: Present regular rate and normal rhythm Abdominal Exam Abdominal exam: Present soft; Absent distention, tenderness or guarding Extremities Exam Extremities exam: Present tenderness, normal capillary refill and edema Expanded Lower Extremity Exam Right: Comment: Significant bilateral lower extremity lower edema, right greater than left. Left leg is mostly limited to the lower leg, however the right leg extends all the way up into the hip/pelvis. She has significant bruising to the posterior aspect of the right lower extremity. She has good pulses distally and normal capillary refill and sensation. No significant pain with passive stretch. Back Exam Back exam: Present normal inspection and full ROM; Absent tenderness Neurological Exam Neurological exam: Present alert, oriented X3, CN II-XII intact and normal gait; Absent motor sensory deficit Psychiatric Psychiatric exam: Present normal affect and normal mood Skin Skin exam: Present warm, dry and erythema (Erythema to the bilateral lower extremities) Medical Decision Making <Rosetta Haynes, DO - Last Filed: 05/22/23 16:24> Medical Records Medical records reviewed: Yes I reviewed the patient's medical records. Sebastián Inquiry Pt receiving controlled substance: No Vital Signs: 05/22/23 14:58 05/22/23 15:31 05/22/23 17:01 Temperature 97.8 F Temperature Source Oral Pulse Rate 74 95 H Pulse Rate [Right Brachial] 112 H Respiratory Rate 22 13 Blood Pressure 96/44 L 115/51 L Blood Pressure [Right Arm] 132/108 H Blood Pressure Mean Blood Pressure Mean [Right Arm] 116 Blood Pressure Source [Right Arm] Automatic Cuff Blood Pressure Position [Right Arm] Supine 02 Sat by Pulse Oximetry 96 94 L 98 Oxygen Delivery Method Room Air Room Air Room Air 05/22/23 17:30 05/22/23 18:02 05/22/23 18:30 Temperature Temperature Source Pulse Rate 99 H 103 H 97 H Pulse Rate [Right Brachial] Respiratory Rate 14 18 Blood Pressure 115/60 95/50 L 100/50 L Blood Pressure [Right Arm] Blood Pressure Mean 63 Blood Pressure Mean [Right Arm] Blood Pressure Source [Right Arm] Blood Pressure Position [Right Arm] 02 Sat by Pulse Oximetry 97 95 95 Oxygen Delivery Method Room Air Room Air Lab Data Lab results reviewed: Yes I reviewed the patient's lab results. Lab Results 05/22/23 14:52: VBG pH 7.32, VBG pCO2 47.4, VBG pO2 44.2 H, VBG HCO3 23.7, VBG Total CO2 25.1, VBG O2 Saturation 74.9 H, VBG Base Excess -2.5 L 05/22/23 15:00: WBC 8.2, RBC 4.65, Hgb 14.0, Hct 42.5, MCV 91.4, MCH 30.2, MCHC 33.0, RDW 13.5, Plt Count 278, MPV 8.1, Neut % (Auto) 76.2, Lymph % (Auto) 17.0, [place] % (Auto) 5.2, Eos % (Auto) 1.0, Baso % (Auto) 0.5, Neut # (Auto) 6.3, Lymph # (Auto) 1.4, [place] # (Auto) 0.4, Eos # (Auto) 0.1, Baso # (Auto) 0.1, ESR 27, PT 12.3, INR 1.15 H, APTT 29.0, D-Dimer > 8.10 H, Sodium 136, Potassium 3.6, Chloride 101, Carbon Dioxide 28, Anion Gap 10.6, BUN 17, Creatinine 0.50 L, Estimated Creat Clear 59, Estimated GFR 122, Est GFR ( Amer) 147, Glucose 93, Lactate 1.9, Calcium 8.3 L, Total Bilirubin 1.0, AST 49 H, ALT 38, Alkaline Phosphatase 100, Total Creatine Kinase 248 H, Troponin I , C-Reactive Protein 82.9 H, Total Protein 6.6, Albumin 3.4 L, Globulin 3.2, Albumin/Globulin Ratio 1.1, TSH 0.00 L, Thyroxine (T4) 11.9 H 05/22/23 17:58: Urine Color Yellow, Urine Appearance Clear, Urine pH 6.0, Ur Specific [place] 1.020, Urine Protein Negative, Urine Glucose (UA) Negative, Urine Ketones Trace, Urine Blood 1+, Urine Nitrate Negative, Urine Bilirubin Negative, Urine Urobilinogen 0.2, Ur Leukocyte Esterase Negative 05/22/23 15:00 05/22/23 15:00 Orders (Tests/Meds): ED MEDICATIONS Generic Name Dose Route Start Last Admin Trade Name Freaudi PRN Reason Stop Dose Admin Heparin Sodium/Dextrose 500 mls @ 26 mls/hr 05/22/23 18:45 Heparin 25,000 Units In D5w 500ml Premix IV 06/21/23 18:44 .[id number] JAYDE 1,300 UNITS/HR Sodium Chloride 10 ml 05/22/23 15:10 Sodium Chloride 0.9% 10ml Flush Syringe IV 06/21/23 15:09 NEEDED PRN Maintain IV Site Discontinued Medications Generic Name Dose Route Start Last Admin Trade Name Freq PRN Reason Stop Dose Admin Heparin Sodium (Porcine) 5,800 unit 05/22/23 18:30 Heparin Sodium 5,000 Unit/Ml Vial IV 05/22/23 18:31 ONCE ONE Iopamidol 170 ml 05/22/23 16:41 05/22/23 16:52 Iopamidol-370 (76%);100ml Bottle IV 05/22/23 16:42 170 ml ONCE ONE Administration Sodium Chloride 10 ml 05/22/23 16:41 05/22/23 16:52 Sodium Chloride 0.9% 10ml Syr (Rad Only) IV 05/22/23 16:42 10 ml ONCE ONE Administration Sodium Chloride 100 ml 05/22/23 16:41 05/22/23 16:52 0.9 % Sodium Chloride 50 Ml Vial IV 05/22/23 16:42 100 ml ONCE ONE Administration ORDERS Category Date Time Status CT angio LE BI Stat Cat Scan 05/22/23 15:[address] angio chest PE protocol Stat Cat Scan 05/22/23 15:[address] cervical spine wo con Stat Cat Scan 05/22/23 14:[address] head/brain wo con Stat Cat Scan 05/22/23 14:52 Completed XR chest portable Stat Exams 05/22/23 14:52 Completed XR femur RT 2V Stat Exams 05/22/23 14:52 Completed XR hip RT 2-3V w/pelvis Stat Exams 05/22/23 14:52 Completed XR knee RT 3V Stat Exams 05/22/23 14:52 Completed XR tibia fibula RT 2V Stat Exams 05/22/23 14:52 Completed Activated Partial Thrombo Time Stat Lab 05/22/23 15:00 Completed Brain Natriuretic Peptide Stat Lab 05/22/23 15:00 Results C-Reactive Protein Stat Lab 05/22/23 15:00 Completed Complete Blood Count Auto Diff Stat Lab 05/22/23 15:00 Completed Comprehensive Metabolic Panel Stat Lab 05/22/23 15:00 Completed Creatine Kinase Stat Lab 05/22/23 15:00 Results D-Dimer Stat Lab 05/22/23 15:00 Completed Erythrocyte Sedimentation Rate Stat Lab 05/22/23 15:00 Completed Lactic Acid Stat Lab 05/22/23 15:00 Completed Prothrombin Time INR Stat Lab 05/22/23 15:00 Completed T4 (Thyroxine) Stat Lab 05/22/23 15:00 Results Thyroid Stimulating Hormone Stat Lab 05/22/23 15:00 Results Troponin I Q3H Lab 05/22/23 18:00 Ordered Troponin I Q3H Lab 05/22/23 21:00 Ordered Troponin I Stat Lab 05/22/23 15:00 Results Urinalysis and Microscopic Stat Lab 05/22/23 17:58 Results Venous Blood Gas Stat RT 05/22/23 14:52 Completed CA venous doppler LE BI Stat Y 05/22/23 14:52 Completed ECG Data Tracing #1: I reviewed this ECG and interpreted as documented below: Atrial fibrillation with a ventricular rate of [address] changes concerning for ischemia. ECG initial impression date: 05/22/23 ECG initial impression time: 14:56 Medical Decision Narrative: In summary, this patient is a 72-year-old female presenting to the Emergency Department for evaluation of bilateral leg swelling, general debility, and right leg pain. Differential diagnoses considered include but are not limited to DVT, fracture, cellulitis, hematoma, phlegmasia, rhabdomyolysis, compartment syndrome. Ruling out the most morbid conditions drove assessment. On exam, the patient is neurovascularly intact in her bilateral lower extremities with significant pain and swelling to her right lower leg. Right leg is more concerning with significant swelling extending up into her pelvis. Workup included very broad lab evaluation to evaluate for rhabdomyolysis, infection, and metabolic syndromes as well as cardiac issues. DVT ultrasounds were ordered of the bilateral lower extremities as well as cT head, CT c-spine, and XR of the RLE for trauma evaluation. I independently interpreted ultrasound prior to the radiologist read and noted positive for DVT in the right lower extremity. Please see their read for final interpretation. Labs demonstrated mildly elevated CK of 248 as well as elevated inflammatory markers. Other labs are pending at this time. EKG demonstrates atrial fibrillation with a ventricular rate in the 90s. Patient denies any known history of cardiac issues. At this time, decision was made to order CTAs of the lower extremities to further assess. given her known blood clots, new atrial fibrillation, CTA of the chest was also ordered. Patient care signed out to the oncoming provider, Dr. Gold bauer, pending results and dispositin. <Gaurav Garcia MD - Last Filed: 05/22/23 18:53> Vital Signs: 05/22/23 14:58 05/22/23 15:31 05/22/23 17:01 Temperature 97.8 F Temperature Source Oral Pulse Rate 74 95 H Pulse Rate [Right Brachial] 112 H Respiratory Rate 22 13 Blood Pressure 96/44 L 115/51 L Blood Pressure [Right Arm] 132/108 H Blood Pressure Mean Blood Pressure Mean [Right Arm] 116 Blood Pressure Source [Right Arm] Automatic Cuff Blood Pressure Position [Right Arm] Supine 02 Sat by Pulse Oximetry 96 94 L 98 Oxygen Delivery Method Room Air Room Air Room Air 05/22/23 17:30 05/22/23 18:02 05/22/23 18:30 Temperature Temperature Source Pulse Rate 99 H 103 H 97 H Pulse Rate [Right Brachial] Respiratory Rate 14 18 Blood Pressure 115/60 95/50 L 100/50 L Blood Pressure [Right Arm] Blood Pressure Mean 63 Blood Pressure Mean [Right Arm] Blood Pressure Source [Right Arm] Blood Pressure Position [Right Arm] 02 Sat by Pulse Oximetry 97 95 95 Oxygen Delivery Method Room Air Room Air Lab Data Lab Results 05/22/23 14:52: VBG pH 7.32, VBG pCO2 47.4, VBG pO2 44.2 H, VBG HCO3 23.7, VBG Total CO2 25.1, VBG O2 Saturation 74.9 H, VBG Base Excess -2.5 L 05/22/23 15:00: WBC 8.2, RBC 4.65, Hgb 14.0, Hct 42.5, MCV 91.4, MCH 30.2, MCHC 33.0, RDW 13.5, Plt Count 278, MPV 8.1, Neut % (Auto) 76.2, Lymph % (Auto) 17.0, [place] % (Auto) 5.2, Eos % (Auto) 1.0, Baso % (Auto) 0.5, Neut # (Auto) 6.3, Lymph # (Auto) 1.4, [place] # (Auto) 0.4, Eos # (Auto) 0.1, Baso # (Auto) 0.1, ESR 27, PT 12.3, INR 1.15 H, APTT 29.0, D-Dimer > 8.10 H, Sodium 136, Potassium 3.6, Chloride 101, Carbon Dioxide 28, Anion Gap 10.6, BUN 17, Creatinine 0.50 L, Estimated Creat Clear 59, Estimated GFR 122, Est GFR ( Amer) 147, Glucose 93, Lactate 1.9, Calcium 8.3 L, Total Bilirubin 1.0, AST 49 H, ALT 38, Alkaline Phosphatase 100, Total Creatine Kinase 248 H, Troponin I , C-Reactive Protein 8 2.9 H, Total Protein 6.6, Albumin 3.4 L, Globulin 3.2, Albumin/Globulin Ratio 1.1, TSH 0.00 L, Thyroxine (T4) 11.9 H 05/22/23 17:58: Urine Color Yellow, Urine Appearance Clear, Urine pH 6.0, Ur Spe cific [place] 1.020, Urine Protein Negative, Urine Glucose (UA) Negative, Urine Ketones Trace, Urine Blood 1+, Urine Nitrate Negative, Urine Bilirubin Negative, Urine Urobilinogen 0.2, Ur Leukocyte Esterase Negative Orders (Tests/Meds): ED MEDICATIONS Generic Name Dose Route Start Last Admin Trade Name Freq PRN Reason Stop Dose Admin Heparin Sodium/Dextrose 500 mls @ 26 mls/hr 05/22/23 18:45 Heparin 25,000 Units In D5w 500ml Premix IV 06/21/23 18:44 .[id number] JAYDE 1,300 UNITS/HR Sodium Chloride 10 ml 05/22/23 15:10 Sodium Chloride 0.9% 10ml Flush Syringe IV 06/21/23 15:09 NEEDED PRN Maintain IV Site Discontinued Medications Generic Name Dose Route Start Last Admin Trade Name Freq PRN Reason Stop Dose Admin Heparin Sodium (Porcine) 5,800 unit 05/22/23 18:30 Heparin Sodium 5,000 Unit/Ml Vial IV 05/22/23 18:31 ONCE ONE Iopamidol 170 ml 05/22/23 16:41 05/22/23 16:52 Iopamidol-370 (76%);100ml Bottle IV 05/22/23 16:42 170 ml ONCE ONE Administration Sodium Chloride 10 ml 05/22/23 16:41 05/22/23 16:52 Sodium Chloride 0.9% 10ml Syr (Rad Only) IV 05/22/23 16:42 10 ml ONCE ONE Administration Sodium Chloride 100 ml 05/22/23 16:41 05/22/23 16:52 0.9 % Sodium Chloride 50 Ml Vial IV 05/22/23 16:42 100 ml ONCE ONE Administration ORDERS Category Date Time Status CT angio LE BI Stat Cat Scan 05/22/23 15:[address] angio chest PE protocol Stat Cat Scan 05/22/23 15:[address] cervical spine wo con Stat Cat Scan 05/22/23 14:[address] head/brain wo con Stat Cat Scan 05/22/23 14:52 Completed XR chest portable Stat Exams 05/22/23 14:52 Completed XR femur RT 2V Stat Exams 05/22/23 14:52 Completed XR hip RT 2-3V w/pelvis Stat Exams 05/22/23 14:52 Completed XR knee RT 3V Stat Exams 05/22/23 14:52 Completed XR tibia fibula RT 2V Stat Exams 05/22/23 14:52 Completed Activated Partial Thrombo Time Stat Lab 05/22/23 15:00 Completed Brain Natriuretic Peptide Stat Lab 05/22/23 15:00 Results C-Reactive Protein Stat Lab 05/22/23 15:00 Completed Complete Blood Count Auto Diff Stat Lab 05/22/23 15:00 Completed Comprehensive Metabolic Panel Stat Lab 05/22/23 15:00 Completed Creatine Kinase Stat Lab 05/22/23 15:00 Results D-Dimer Stat Lab 05/22/23 15:00 Completed Erythrocyte Sedimentation Rate Stat Lab 05/22/23 15:00 Completed Lactic Acid Stat Lab 05/22/23 15:00 Completed Prothrombin Time INR Stat Lab 05/22/23 15:00 Completed T4 (Thyroxine) Stat Lab 05/22/23 15:00 Results Thyroid Stimulating Hormone Stat Lab 05/22/23 15:00 Results Troponin I Q3H Lab 05/22/23 18:00 Ordered Troponin I Q3H Lab 05/22/23 21:00 Ordered Troponin I Stat Lab 05/22/23 15:00 Results Urinalysis and Microscopic Stat Lab 05/22/23 17:58 Results Venous Blood Gas Stat RT 05/22/23 14:52 Completed CA venous doppler LE BI Stat Y 05/22/23 14:52 Completed Medical Decision Narrative: In summary, this patient is a 72-year-old female presenting to the Emergency Department for evaluation of bilateral leg swelling, general debility, and right leg pain. Differential diagnoses considered include but are not limited to DVT, fracture, cellulitis, hematoma, phlegmasia, rhabdomyolysis, compartment syndrome. Ruling out the most morbid conditions drove assessment. On exam, the patient is neurovascularly intact in her bilateral lower extremities with significant pain and swelling to her right lower leg. Right leg is more concerning with significant swelling extending up into her pelvis. Workup included very broad lab evaluation to evaluate for rhabdomyolysis, infection, and metabolic syndromes as well as cardiac issues. DVT ultrasounds were ordered of the bilateral lower extremities as well as cT head, CT c-spine, and XR of the RLE for trauma evaluation. I independently interpreted ultrasound prior to the radiologist read and noted positive for DVT in the right lower extremity. Please see their read for final interpretation. Labs demonstrated mildly elevated CK of 248 as well as elevated inflammatory markers. Other labs are pending at this time. EKG demonstrates atrial fibrillation with a ventricular rate in the 90s. Patient denies any known history of cardiac issues. At this time, decision was made to order CTAs of the lower extremities to further assess. given her known blood clots, new atrial fibrillation, CTA of the chest was also ordered. Patient care signed out to the oncoming provider, Dr. Garcia, pending results and dispositin. Gaurav Garcia: Upon assumption of care patient was hemodynamically stable, slight tachycardia, atrial fibrillation. Hematologic labs reviewed by me, significantly elevated D-dimer, remainder of hematologic labs are largely nonactionable, CRP is very elevated. Imaging reviewed by me, patient has a comminuted displaced right femur fracture, loculated fluid collections around the femur which may represent abscess or evolving hematoma, cranial-caudal collections measure over 20 cm. Chest CTA shows bilateral pulmonary emboli within the right middle lobe, right lower lobe, left upper lobe. RV to LV ratio was 1.1, there is an incidental 2 cm hypodense lesion in the pancreas for which nonemergent evaluation was recommended. Patient also has partial thrombus in the right popliteal vein and right gastrocnemius vein, left lower extremity unremarkable. Given the patient is hemodynamically stable in the setting of possible evolving hematoma it was felt that the risks outweigh the benefits currently until she is evaluated by tertiary care and anticoagulation will be deferred. Patient was transferred in stable condition. Critical Care <Rosetta Haynes, DO - Last Filed: 05/22/23 16:24> Critical Care Time Critical Care Time: No
[2023-05-22] MEDS: SODIUM CHLORIDE 0.9% 10ML SYR (RAD ONLY) 10 ML IV (16:52)
[2023-05-22] MEDS: 0.9 % SODIUM CHLORIDE 50 ML VIAL 100 ML IV (16:52)
[2023-05-22] MEDS: IOPAMIDOL-370 (76%);100ML BOTTLE 170 ML IV (16:52)
--- NOTE | 2023-05-22 17:06 | PC.NURSE ---
Rounded on pt. Pt resting at this time. No needs voiced. Call light within reach.
[2023-05-22 17:59] LABS: T4 (Thyroxine) 11.9 ug/dl (5.53-11.0)
[2023-05-22 18:03] LABS: Microscopic, Urine URINE MICROSCOPIC (MICROSCOPIC)
--- NOTE | 2023-05-22 18:12 | PC.NURSE ---
Dr. Cai pagejuanis
--- NOTE | 2023-05-22 18:14 | PC.NURSE ---
Dr. Garcia speaking with Dr. Cai at this time.
[2023-05-22 18:15] LABS: Appearance,Urine CLEAR (Clear); Bilirubin,Urine Negative (Negative); Blood, Urine 1+ (Negative); Color,Urine YELLOW (Yellow); Glucose,Urine (UA) Negative (Negative); Ketones,Urine TRACE (Negative); Leukocyte Esterase,Urine Negative (Negative); Nitrate,Urine Negative (Negative); Protein,Urine Negative (Negative); Urobilinogen,Urine 0.2 EU/dl (0.2)
--- NOTE | 2023-05-22 18:24 | PC.NURSE ---
[facility] called at this time.
--- NOTE | 2023-05-22 18:28 | PC.NURSE ---
spoke with [facility] pharmacy for heparin order and dose per ER MD, pt is being treated for PE dosing and coag studies have already resulted
--- NOTE | 2023-05-22 18:38 | PC.NURSE ---
PT SLEEPING AT
--- NOTE | 2023-05-22 18:46 | PC.NURSE ---
Dr. Garcia speaking with Dr. Archer at [facility]
--- NOTE | 2023-05-22 18:53 | PC.NURSE ---
Pt accepted to [facility] by Dr. Archer
--- NOTE | 2023-05-22 18:54 | PC.NURSE ---
[facility] Advised they would be here as soon as [place].
[2023-05-22 18:55] LABS: Bacteria,Urine 1+ /lpf
--- NOTE | 2023-05-22 19:26 | PC.NURSE ---
Report called to RAJESH Avilez at [facility].
[2023-05-22] MEDS: ONDANSETRON 4MG/2ML VIAL 4 MG IV (20:18)
[2023-05-22] MEDS: HYDROMORPHONE 2MG/ML SYRINGE 0.5 MG IV (20:19)
== END 2023-05-22 20:30 | disposition short-term general hospital (02) ==
PROVIDERS: Emergency Medicine; Emergency Provider Emergency Medicine; PCP Nurse Practitioner Family
DX: I82.431 Acute embolism and thrombosis of right popliteal vein (principal); I82.461 Acute embolism and thrombosis of right calf muscular vein; L89.159 Pressure ulcer of sacral region, unspecified stage; R29.6 Repeated falls; I48.91 Unspecified atrial fibrillation; M79.604 Pain in right leg; R22.41 Localized swelling, mass and lump, right lower limb
CPT/HCPCS: 36415; 70450; 71045; 71275; 72125; 73502; 73552; 73562; 73590; 73701; 80053; 81001; 82550; 82803; 83605; 83880; 84436; 84443; 84484; 85025; 85378; 85610; 85651; 85730; 86140; 93005; 93970; 96374; 96375; 99285; J2405; Q9967

== ENCOUNTER 2023-07-18 15:13 | Outpatient (CLI) | payer MEDICARE, SELFPAY ==
--- NOTE | 2023-07-18 15:38 | XR_ITS ---
FINAL REPORT CLINICAL HISTORY: OTHER FRACTURE OF RT PATELLA COMPARISON: 2023 FINDINGS: Three views of the right knee reveal no evidence of fracture or dislocation. There are postoperative changes in the distal femur, with a plate and orthopedic screws bridging a comminuted fracture of the distal femur. There is interval healing and callus formation present. There is no evidence of joint effusion. No acute bony abnormality is present. Mild degenerative change is present. No localized soft tissue abnormality is identified. IMPRESSION: Postoperative changes in the distal femur, with interval healing and callus formation present. No acute bony abnormality is identified. Reviewed, Interpreted and Dictated by Hector Dia III, MD Transcribed by Tiffanie Casanova Authenticated and [facility]
== END 2023-07-18 23:59 ==
PROVIDERS: PCP Nurse Practitioner Family; Visit Provider Nurse Practitioner Family
DX: M25.561 Pain in right knee (principal); S82.091A Other fracture of right patella, initial encounter for closed fracture
CPT/HCPCS: 73560

== ENCOUNTER 2023-07-20 15:01 | Outpatient (CLI) | payer MEDICARE, SELFPAY ==
--- NOTE | 2023-07-20 | CA_ITS ---
FINAL REPORT TECHNIQUE: Color Doppler, duplex Doppler and compression sonography of the right lower extremity venous system was performed. CLINICAL HISTORY: Injured right knee 6 weeks ago has been painful and swollen since then. COMPARISON: None FINDINGS: There is no evidence of deep venous thrombosis from the level of the groin to the calf. The veins are patent and compressible. The exam is slightly limited by the patient's inability to rotate their leg. IMPRESSION: No evidence of deep venous thrombosis right lower extremity. Reviewed, Interpreted and Dictated by Hector Dia III, MD Transcribed by Tiffanie Casanova Authenticated and [facility]
== END 2023-07-20 23:59 ==
LOC: RT 15:04
PROVIDERS: PCP Nurse Practitioner Family; Visit Provider Nurse Practitioner Family
DX: I82.401 Acute embolism and thrombosis of unspecified deep veins of right lower extremity (principal); M79.604 Pain in right leg
CPT/HCPCS: 93971

== ENCOUNTER 2023-08-09 07:38 | Outpatient (CLI) | payer MEDICARE, SELFPAY ==
--- NOTE | 2023-08-09 08:09 | MR_ITS ---
FINAL REPORT CLINICAL HISTORY: PANCREATIC CYST COMPARISON: CT May 22, 2023 FINDINGS: Multiplanar MR imaging of the abdomen was performed without and with contrast. An MRCP was also performed. 3D images were obtained and reviewed. Images of the liver reveal no evidence of mass. There is no evidence of biliary ductal dilatation. The gallbladder is surgically absent. Significant motion is seen on the MRCP images, but there is no evidence of bile duct stone or stricture. There is mild extrahepatic biliary ductal dilatation that may represent postcholecystectomy change. The pancreatic duct is mildly dilated up to 3-4 mm. There is no evidence of pancreatic duct stricture. A 17 mm cystic mass is seen in the posterior pancreatic body. This does not show evidence of contrast-enhancement, and is stable since the prior CT. The spleen size is normal. There is no evidence of renal mass or hydronephrosis. Small retroperitoneal nodes are seen without evidence of adenopathy. No abnormal contrast enhancement is seen on the postcontrast images. IMPRESSION: Stable 17 mm cystic mass in the pancreatic body. The differential diagnosis includes a pseudocyst, pancreatic cyst or possibly cystic neoplasm. Recommend follow-up CT or MRI in 6 months to evaluate for stability. Status postcholecystectomy with mild biliary ductal dilatation, favor postcholecystectomy change. Authenticated and [facility]
[2023-08-09 08:15] LABS: Blood Urea Nitrogen 17 mg/dl (7-17); Estimated Glomerular Filt Rate 71 ml/min (>60); GFR (African American) 85 ML/MIN (>60)
[2023-08-09] MEDS: GADOTERIDOL INJ 17ML SYRINGE 17 ML IV (09:38)
[2023-08-09] MEDS: SODIUM CHLORIDE 0.9% 10ML SYR (RAD ONLY) 10 ML IV (09:38)
[2023-08-09] MEDS: 0.9 % SODIUM CHLORIDE 50 ML VIAL IV (09:38)
== END 2023-08-09 23:59 | disposition home or self-care (01) ==
LOC: RAD 07:39
PROVIDERS: PCP Nurse Practitioner Family; Visit Provider Nurse Practitioner Family
DX: K86.2 Cyst of pancreas (principal)
CPT/HCPCS: 36415; 74183; 76376; 82565; 84520; A9576

== ENCOUNTER 2023-11-27 14:27 | Emergency (ER) | payer MEDICARE, SELFPAY ==
--- NOTE | 2023-11-27 14:30 | ECG_ITS ---
APPROVED REPORT Exam: Resting ECG HR:82 bpm ECG Measurements Heart Rate 82 AXES QRSd 96 QRS 31 QT 403 T 31 QTc 441 Conclusion ATRIAL FIBRILLATION WITH ABERRANT CONDUCTION OR VENTRICULAR PREMATURE COMPLEXES MODERATE ST DEPRESSION [0.05+ mV ST DEPRESSION] Electronically signed by : SHAW DOLAN, 11/30/2023 15:08:04
[2023-11-27 14:37] VITALS: BP 139/82; PULSE 77; RESP 17; TEMP 36.5; O2SAT 96; BMI 27.4
--- NOTE | 2023-11-27 14:39 | HMH.EDGENADL ---
Discharge Plan Disposition Patient Disposition: Home, Self-Care Condition: Good Prescriptions Prescriptions: No Action trospium 20 mg tablet 20 mg PO BID Qty: 60 0RF Rx Instructions: administer on an empty stomach Referrals Follow up/Referrals: Provider,Referral, [Primary Care Provider] - See instructions Activity Restrictions/Add. Instructions Additional Instructions/Restrictions: You were evaluated in the emergency department today. Please follow-up very closely with your primary care provider. Since you do started taking Eliquis, monitor for bleeding, such as blood in your stools or dark tarry stools. Return to the emergency department for new or worsening symptoms. Clinical Impressions Clinical Impression: Lightheadedness Instructions Patient Instructions: DI for Syncope in Adults (Fainting) Print Language Print Language: Pashto Discharge ED Provider: Rosetta Haynes General Adult HPI <Yobany Valdez MD - Last Filed: 11/27/23 15:17> General Chief complaint: Dizziness Stated complaint: Weakness Time Seen by Provider: 11/27/23 14:29 History of Present Illness HPI narrative: Please note that above description of symptoms, in this electronic medical record under categorization of recalled from ER triage doctor by RN are reflective of an initial nursing assessment, however, is not reflective of my full history and physical exam that was personally taken and clarified. Consequentially, this preceding description of symptoms, which may include the patient's categorized chief complaint in the EMR, do not reflect my personal clinical impression, and the ultimate description of history of present illness and patient stated complaints should be deferred to this section of the note. Unless stated otherwise or congruent with this section of the note, additional signs, symptoms, or incongruence should be interpreted as inaccurate with my clinical impression. Related Data Previous Rx's ?Medication ?Instructions ?Recorded trospium 20 mg tablet 20 mg PO BID #60 tabs 04/05/23 Allergies Allergy/AdvReac Type Severity Reaction Status Date / Time codeine AdvReac Nausea Verified 04/12/23 11:00 PFSH <Yobany Valdez MD - Last Filed: 11/27/23 15:17> [facility] Disclaimer: The information contained in this section may have been updated after the patient was seen, as this information can be updated by other users. Surgical History H/O: hysterectomy History of cholecystectomy Family History Other Cancer Diabetes Heart attack Hypertension Social History Smoking Status: Never smoker alcohol intake: never substance use type: denies use current occupational status: disabled Travel in the last 8 weeks: None caffeine: Yes <Yobany Valdez MD - Last Filed: 11/27/23 15:17> ROS Obtained: Yes All systems reviewed & no additional complaints except as documented Physical Exam <Yobany Valdez MD - Last Filed: 11/27/23 15:17> General General appearance: alert and obese Head Head exam: atraumatic and normocephalic Eye Eye exam: Present normal appearance, PERRL and EOMI Neck Neck exam: Present normal inspection, full ROM and trachea midline Respiratory Respiratory exam: Present normal lung sounds bilaterally; Absent respiratory distress, wheezes, stridor, accessory muscle use or prolonged expiratory phase Cardiovascular Cardiovascular exam: Present regular rate, irregular rhythm, normal heart sounds and other (Pulses equal symmetric in upper and lower extremities) Abdominal Exam Abdominal exam: Present soft; Absent distention, tenderness or pulsatile mass Extremities Exam Extremities exam: Absent edema Neurological Exam Neurological exam: Present alert, oriented X3 and CN II-XII intact; Absent motor sensory deficit Skin Skin exam: Present warm and dry; Absent diaphoresis or erythema Medical Decision Making <Yobany Valdez MD - Last Filed: 11/27/23 15:17> Medical Records Medical records reviewed: Yes I reviewed the patient's medical records. Sebastián Inquiry Pt receiving controlled substance: No Sebastián was queried for this patient: No Vital Signs: 11/27/23 14:37 11/27/23 15:00 11/27/23 15:30 Temperature 97.7 F Temperature Source Oral Pulse Rate 73 61 Pulse Rate [Left Radial] 77 Respiratory Rate 17 17 12 Blood Pressure 106/59 L 115/74 Blood Pressure [Right Arm] 139/82 Blood Pressure Mean [Right Arm] 101 02 Sat by Pulse Oximetry 96 95 99 Oxygen Delivery Method Room Air Room Air 11/27/23 16:00 11/27/23 16:30 11/27/23 18:04 Temperature 97.9 F Temperature Source Pulse Rate 72 70 74 Pulse Rate [Left Radial] Respiratory Rate 16 20 16 Blood Pressure 128/68 120/65 159/77 H Blood Pressure [Right Arm] Blood Pressure Mean [Right Arm] 02 Sat by Pulse Oximetry 96 95 Oxygen Delivery Method Room Air Room Air Lab Data Lab Results 11/27/23 14:20: WBC 6.0, RBC 4.12 L, Hgb 13.8, Hct 39.1, MCV 94.8, MCH 33.4 H, MCHC 35.2, RDW 16.4, Plt Count 226, MPV 8.8, Neut % (Auto) 66.5, Lymph % (Auto) 23.5, [place] % (Auto) 6.3, Eos % (Auto) 2.6, Baso % (Auto) 1.1, Neut # (Auto) 4.0, Lymph # (Auto) 1.4, [place] # (Auto) 0.4, Eos # (Auto) 0.2, Baso # (Auto) 0.1, Sodium 141, Potassium 3.8, Chloride 110 H, Carbon Dioxide 25, Anion Gap 9.8, BUN 32 H, Creatinine 0.80, Estimated Creat Clear 62, Estimated GFR 71, Est GFR ( Amer) 85, Glucose 132 H, Calcium 8.8, Total Bilirubin 0.3, AST 50 H, ALT 42, Alkaline Phosphatase 69, Troponin I < 0.01, NT-Pro-B Natriuret Pep 662 H, Total Protein 7.1, Albumin 4.2, Globulin 2.9, Albumin/Globulin Ratio 1.4 11/27/23 14:20 11/27/23 14:20 Orders (Tests/Meds): ORDERS Category Date Time Status CBC w/Auto Diff [Complete Blood Count Auto Diff] Stat Lab 11/27/23 14:20 Completed CMP [Comprehensive Metabolic Panel] Stat Lab 11/27/23 14:20 Completed NT Pro Brain Natriuretic Pep. Stat Lab 11/27/23 14:20 Completed Trop I [Troponin I] Stat Lab 11/27/23 14:20 Completed Medical Decision Narrative: 73-year-old female history of hypertension, hyperlipidemia, A-fib currently on metoprolol and Eliquis presenting with lightheadedness. Patient states that she was walking just prior to arrival, felt lightheaded while walking outside. No loss of conscious, no fall. States that the world felt like it was spinning. Better at rest, asymptomatic on arrival. Was brought in by EMS for further evaluation. History obtained with patient and EMS. On my evaluation, patient very well-appearing, hemodynamically stable, alert and oriented. No nystagmus. Cardiac exam normal. No murmurs, gallops, rubs. Pulses equal and symmetric in upper and lower extremities. Nonpitting lower extremity edema. She is neurologically intact including cranial nerve, cerebellar, motor and sensory exam. Differential includes dehydration, orthostatic, vasovagal, metabolic abnormality, ACS, [place], arrhythmia, among others. Independent interpretation of EKG demonstrates A-fib with controlled rate 82 beats a minute no ST or T wave changes concerning for acute schema. QRS 96, QTc 441. Workup pending at time of handoff to oncoming physician. Surface Mount Technology Operator disclaimer Much of this encounter note is an electronic detail technician spoken language to printed text. Electronic detail technician of the spoken language may permit errors. Although I have reviewed the note, some errors may still exist. <Rosetta Haynes, DO - Last Filed: 11/27/23 20:02> Vital Signs: 11/27/23 14:37 11/27/23 15:00 11/27/23 15:30 Temperature 97.7 F Temperature Source Oral Pulse Rate 73 61 Pulse Rate [Left Radial] 77 Respiratory Rate 17 17 12 Blood Pressure 106/59 L 115/74 Blood Pressure [Right Arm] 139/82 Blood Pressure Mean [Right Arm] 101 02 Sat by Pulse Oximetry 96 95 99 Oxygen Delivery Method Room Air Room Air 11/27/23 16:00 11/27/23 16:30 11/27/23 18:04 Temperature 97.9 F Temperature Source Pulse Rate 72 70 74 Pulse Rate [Left Radial] Respiratory Rate 16 20 16 Blood Pressure 128/68 120/65 159/77 H Blood Pressure [Right Arm] Blood Pressure Mean [Right Arm] 02 Sat by Pulse Oximetry 96 95 Oxygen Delivery Method Room Air Room Air Lab Data Lab Results 11/27/23 14:20: WBC 6.0, RBC 4.12 L, Hgb 13.8, Hct 39.1, MCV 94.8, MCH 33.4 H, MCHC 35.2, RDW 16.4, Plt Count 226, MPV 8.8, Neut % (Auto) 66.5, Lymph % (Auto) 23.5, [place] % (Auto) 6.3, Eos % (Auto) 2.6, Baso % (Auto) 1.1, Neut # (Auto) 4.0, Lymph # (Auto) 1.4, [place] # (Auto) 0.4, Eos # (Auto) 0.2, Baso # (Auto) 0.1, Sodium 141, Potassium 3.8, Chloride 110 H, Carbon Dioxide 25, Anion Gap 9.8, BUN 32 H, Creatinine 0.80, Estimated Creat Clear 62, Estimated GFR 71, Est GFR ( Amer) 85, Glucose 132 H, Calcium 8.8, Total Bilirubin 0.3, AST 50 H, ALT 42, Alkaline Phosphatase 69, Troponin I < 0.01, NT-Pro-B Natriuret Pep 662 H, Total Protein 7.1, Albumin 4.2, Globulin 2.9, Albumin/Globulin Ratio 1.4 Orders (Tests/Meds): ORDERS Category Date Time Status CBC w/Auto Diff [Complete Blood Count Auto Diff] Stat Lab 11/27/23 14:20 Completed CMP [Comprehensive Metabolic Panel] Stat Lab 11/27/23 14:20 Completed NT Pro Brain Natriuretic Pep. Stat Lab 11/27/23 14:20 Completed Trop I [Troponin I] Stat Lab 11/27/23 14:20 Completed Medical Decision Narrative: 73-year-old female history of hypertension, hyperlipidemia, A-fib currently on metoprolol and Eliquis presenting with lightheadedness. Patient states that she was walking just prior to arrival, felt lightheaded while walking outside. No loss of conscious, no fall. States that the world felt like it was spinning. Better at rest, asymptomatic on arrival. Was brought in by EMS for further evaluation. History obtained with patient and EMS. On my evaluation, patient very well-appearing, hemodynamically stable, alert and oriented. No nystagmus. Cardiac exam normal. No murmurs, gallops, rubs. Pulses equal and symmetric in upper and lower extremities. Nonpitting lower extremity edema. She is neurologically intact including cranial nerve, cerebellar, motor and sensory exam. Differential includes dehydration, orthostatic, vasovagal, metabolic abnormality, ACS, [place], arrhythmia, among others. Independent interpretation of EKG demonstrates A-fib with controlled rate 82 beats a minute no ST or T wave changes concerning for acute schema. QRS 96, QTc 441. Workup pending at time of handoff to oncoming physician. Surface [employer] Operator disclaimer Much of this encounter note is an electronic detail technician spoken language to printed text. Electronic detail technician of the spoken language may permit errors. Although I have reviewed the note, some errors may still exist. DO [place]: I assumed care of the patient at 1500. On my assessment, she is resting comfortably in the bed with no concerns or complaints. Vitals are normal on cardiac telemetry. Labs are reassuring with no acutely concerning abnormalities. Hemoglobin normal, no significant leukocytosis, troponin negative. EKG reassuring. The patient was able to ambulate without difficulty with no recurrence of symptoms. I did have a prolonged discussion with the patient and her who noted that they were initially taking her to see her primary care provider with concern that she had a bloody bowel movement a few days ago in the setting of recently starting Eliquis. This is since resolved and she has had no dark tarry stools or blood in her stool since. I advised that they keep a very close eye on this. Ultimately given that the patient is asymptomatic at this time and has had a reassuring workup, I feel that she is appropriate for discharge home with strict return precautions and instructions for close monitoring of her stools in the setting of recent Eliquis initiation. She was discharged with instructions for very close follow-up with her primary care provider. Critical Care <Yobany Valdez MD - Last Filed: 11/27/23 15:17> Critical Care Time Critical Care Time: No
[2023-11-27 15:00] VITALS: BP 106/59; PULSE 73; RESP 17; O2SAT 95
[2023-11-27 15:30] VITALS: BP 115/74; PULSE 61; RESP 12; O2SAT 99
[2023-11-27 15:50] LABS: Basophils # 0.1 K/mm3 (0-0.2); Basophils % 1.1 % (0.1-2.0); Eosinophils # 0.2 K/mm3 (0.0-0.4); Eosinophils % 2.6 % (0.1-12.0); Hematocrit 39.1 % (37.0-47.0); Hemoglobin 13.8 g/dL (12.2-16.2); Lymphocytes # 1.4 K/mm3 (0.7-4.5); Lymphocytes % 23.5 % (10-50); Mean Corpuscular HGB Conc 35.2 g/dL (31.8-35.4); Mean Corpuscular Hemoglobin 33.4 pg (27.0-31.2); Mean Corpuscular Volume 94.8 fl (81-99); Mean Platelet Volume 8.8 fl (7.4-10.4); Monocytes # 0.4 K/mm3 (0.1-1.0); Monocytes % 6.3 % (1.7-9.3); Neutrophils % 66.5 % (37.0-80.0); Platelet Count 226 K/mm3 (142-424); Red Blood Count 4.12 M/mm3 (4.20-5.40); Red Cell Distribution Width 16.4 % (11.5-17.5)
[2023-11-27 16:00] VITALS: BP 128/68; PULSE 72; RESP 16; O2SAT 96
[2023-11-27 16:04] LABS: Albumin Level 4.2 g/dl (3.5-5.0); Chloride 110 mmol/L (98-107); Sodium 141 mmol/L (136-145)
[2023-11-27 16:05] LABS: Potassium 3.8 mmoL/L (3.5-5.1)
[2023-11-27 16:07] LABS: Alanine Aminotransferase 42 U/L (12-78); Albumin/Globulin Ratio 1.4 (1.1-1.8); Alkaline Phosphatase 69 U/L (38-126); Anion Gap 9.8 mEq/L (5-15); Aspartate Amino Transferase 50 U/L (14-36); Bilirubin,Total 0.3 mg/dl (0.2-1.3); Blood Urea Nitrogen 32 mg/dl (7-17); Carbon Dioxide 25 mmol/L (22.0-30.0); Creatinine Clearance Estimated 62 mL/min (50-200); Estimated Glomerular Filt Rate 71 ml/min (>60); GFR (African American) 85 ML/MIN (>60); Globulin 2.9 g/dL (1.3-3.2); Total Protein,Serum 7.1 g/dl (6.3-8.2)
[2023-11-27 16:08] LABS: Calcium 8.8 mg/dl (8.4-10.2); Glucose 132 mg/dl (74-100)
[2023-11-27 16:16] LABS: NT Pro Brain Natriuretic Pep. 662 pg/mL (0-125)
[2023-11-27 16:21] LABS: Troponin I < 0.01 ng/ml (0.00-0.034)
[2023-11-27 16:30] VITALS: BP 120/65; PULSE 70; RESP 20; O2SAT 95
--- NOTE | 2023-11-27 17:03 | PC.NURSE ---
pt was given a bag of chip and lemon [place] soda
[2023-11-27 18:04] VITALS: BP 159/77; PULSE 74; RESP 16; TEMP 36.6
== END 2023-11-27 18:05 | disposition home or self-care (01) ==
PROVIDERS: Emergency Medicine; Emergency Provider Emergency Medicine
DX: R42 Dizziness and giddiness (principal); I48.91 Unspecified atrial fibrillation; I10 Essential (primary) hypertension; E78.5 Hyperlipidemia, unspecified; Z79.01 Long term (current) use of anticoagulants
CPT/HCPCS: 80053; 83880; 84484; 85025; 93005; 99283

== ENCOUNTER 2025-03-17 15:39 | Emergency (ER) | payer MEDICARE, SELFPAY ==
[2025-03-17] VITALS (7 sets, daily range): BP systolic 117–151; BP diastolic 70–92; PULSE 110–117; RESP 16–19; TEMP 36.9; O2SAT 94–95; BMI 28.2
--- NOTE | 2025-03-17 15:45 | ED_ITS ---
<Statement entered by Darwin Eaton MD - 03/18/25 07:51> I was consulted by the ADAN, and we discussed the complexity of the problems being addressed. I approved the treatment and management plan for this patient's care in the emergency department, thus performing a substantive portion of the medical decision making. Darwin Eaton MD, VILMA, FACEP Discharge Plan Disposition Chief Complaint: Altered Mental Status Prescriptions Prescriptions: No Action trospium 20 mg tablet 20 mg PO BID Qty: 60 0RF Rx Instructions: administer on an empty stomach Referrals Follow up/Referrals: Provider,Aly, [Referring, Medical] - See instructions Instructions Patient Instructions: DI for Altered Mental Status Print Language Print Language: Setswana Discharge ED Provider: Darwin Eaton General Adult HPI General Chief complaint: Altered Mental Status Stated complaint: confusion, possible UTI Time Seen by Provider: 03/17/25 15:41 History of Present Illness HPI narrative: 74-year-old female presents via EMS for confusion. Fell 3 days ago and some family and friends got her up into a chair. EMS believes that she has sat in a chair for 3 days. Patient denies being confused but she is only alert to person and place. EMS states that she is and A-fib which is normal for her. Blood sugar was 118. Blood pressure 135/90. Related Data Previous Rx's ?Medication ?Instructions ?Recorded trospium 20 mg tablet 20 mg PO BID #60 tabs Allergies Allergy/AdvReac Type Severity Reaction Status Date / Time codeine AdvReac Nausea Verified 04/12/23 11:00 [facility] Disclaimer: The information contained in this section may have been updated after the patient was seen, as this information can be updated by other users. Surgical History H/O: hysterectomy History of cholecystectomy Family History Other Cancer Diabetes Heart attack Hypertension Social History Smoking Status: Former smoker alcohol intake: never substance use type: denies use current occupational status: disabled Travel in the last 8 weeks?: None caffeine: Yes Have you lived/traveled outside [place] in past 30 days?: No Contact w/someone who lives/traveled outside US past 30 days?: No Exposure to someone with infectious disease in past 14 days?: No Do you have a fever (greater than 100.4 F or 38 C)?: No Have you tested positive for COVID-19?: No Exposed to someone with COVID-19 in past 14 days?: No Do you have a sore throat?: No Do you have a cough?: No Do you have any weakness?: No Do you have any diarrhea?: No Are you experiencing any unusual bleeding?: No Do you have any muscle aches/pain?: No Do you have any abdominal pain?: No Are you experiencing loss of taste or smell?: No Other Medical History Have you received the Flu Vaccine for this season: No Have you received the Pneumonia Vaccine: No ROS Obtained: Yes Systems reviewed as appropriate & no additional complaints except as documented Constitutional Constitutional: Reports as per HPI Physical Exam General General appearance: alert and in no apparent distress Head Head exam: normocephalic Eye Eye exam: Present PERRL and EOMI ENT ENT exam: Present normal oropharynx and mucous membranes moist Neck Neck exam: Present full ROM and trachea midline Respiratory Respiratory exam: Present normal lung sounds bilaterally Cardiovascular Cardiovascular exam: Present irregular rhythm, normal heart sounds, +S1 and +S2 Abdominal Exam Abdominal exam: Present soft and normal bowel sounds Extremities Exam Extremities exam: Present full ROM and normal capillary refill Neurological Exam Neurological exam: Present alert and oriented X3 Skin Skin exam: Present warm and dry Medical Decision Making Medical Records Screening: Per USPSTF and CDC recommendations, given the prevalence of disease in our region, it is our hospital?s policy to screen for HIV and viral Hepatitis for all patients aged 18 and over and those with ongoing risk factors. Sebastián Inquiry Pt receiving controlled substance: No Sebastián was queried for this patient: No Vital Signs: 03/17/25 15:58 03/17/25 16:01 03/17/25 17:00 Temperature 98.4 F Temperature Source Oral Pulse Rate 110 H Pulse Rate [Left Radial] 117 H Respiratory Rate 19 Blood Pressure 129/76 133/87 Blood Pressure [Right Arm] 117/70 Blood Pressure Mean 95 Blood Pressure Mean [Right Arm] 85 02 Sat by Pulse Oximetry 95 94 L Oxygen Delivery Method Room Air 03/17/25 17:15 03/17/25 18:01 03/17/25 18:16 Temperature Temperature Source Pulse Rate Pulse Rate [Left Radial] Respiratory Rate Blood Pressure 151/86 H 145/87 H 122/92 H Blood Pressure [Right Arm] Blood Pressure Mean 94 106 104 Blood Pressure Mean [Right Arm] 02 Sat by Pulse Oximetry Oxygen Delivery Method Lab Data Lab Results 03/17/25 15:53: Urine Color Yellow, Urine Appearance Clear, Urine pH 6.0, Ur Specific [place] 1.025, Urine Protein 2+ A, Urine Glucose (UA) Negative, Urine Ketones Trace, Urine Blood 2+ A, Urine Nitrate Negative, Urine Bilirubin 1+ A, Urine Urobilinogen 2.0, Ur Leukocyte Esterase Negative, Urine RBC None, Urine WBC None, Ur Squamous Epith Cells 3-5, Urine Bacteria None 03/17/25 16:50: WBC 10.9 H, RBC 5.03, Hgb 14.8, Hct 46.0, MCV 91.5, MCH 29.4, MCHC 32.2, RDW 14.6, Plt Count 300, MPV 10.0, Neut % (Auto) 81.0 H, Lymph % (Auto) 9.3 L, [place] % (Auto) 6.0, Eos % (Auto) 2.9, Baso % (Auto) 0.5, Neut # (Auto) 8.8 H, Lymph # (Auto) 1.0, [place] # (Auto) 0.7, Eos # (Auto) 0.3, Baso # (Auto) 0.1, Sodium 141, Potassium 3.5, Chloride 108 H, Carbon Dioxide 27, Anion Gap 9.5, BUN 21 H, Creatinine 0.70, Estimated Creat Clear 63, Estimated GFR 82, Est GFR ( Amer) 99, Glucose 94, Lactate 1.3, Calcium 8.9, Magnesium 2.1, Total Bilirubin 0.7, AST 47 H, ALT 26, Alkaline Phosphatase 88, Total Creatine Kinase 387 H, Total Protein 7.2, Albumin 3.8, Globulin 3.4 H, Albumin/Globulin Ratio 1.1, Lipase 78, HCV Ab MARSHA w/Rflx PCR Qn Negative, HIV Ag/Ab Combo Qual Negative 03/17/25 16:50 03/17/25 16:50 Orders (Tests/Meds): ED MEDICATIONS Generic Name Dose Route Start Last Admin Trade Name Freq PRN Reason Stop Dose Admin Ceftriaxone Sodium 2 gm/ 100 mls @ 200 mls/hr 03/17/25 15:45 03/17/25 17:53 Sodium Chloride IV 03/27/25 15:44 Infused Q24H JAYDE Infusion Discontinued Medications Generic Name Dose Route Start Last Admin Trade Name Trae PRN Reason Stop Dose Admin Sodium Chloride 1,000 mls @ 999 mls/hr 03/17/25 15:41 03/17/25 18:38 Sod Chlor 0.9% 1000ml Bag IV 03/17/25 16:41 Infused .Q1H1M ONE Infusion ORDERS Category Date Time Status CT head/brain wo con Stat Cat Scan 03/17/25 17:04 Completed CBC [Complete Blood Count Auto Diff] Stat Lab 03/17/25 16:50 Completed CK [Creatine Kinase] Stat Lab 03/17/25 16:50 Completed Comprehensive Metabolic Panel Stat Lab 03/17/25 16:50 Completed HIV Combo Routine Lab 03/17/25 16:50 Completed Hepatitis C Ab Qual. W/ RFX Routine Lab 03/17/25 16:50 Completed Lactic Acid Stat Lab 03/17/25 16:50 Completed Lipase Stat Lab 03/17/25 16:50 Completed Magnesium Stat Lab 03/17/25 16:50 Completed Urinalysis and Microscopic Stat Lab 03/17/25 15:53 Completed Medical Decision Narrative: patient is a 74-year-old female presenting to the emergency department for evaluation of a fall. Patient is hemodynamically stable and nontoxic-appearing upon arrival, afebrile. Differential diagnosis includes altered mental status, fall, UTI, sepsis among others. Workup will be conducted with hematologic labs, specific imaging, provocative tests. Initial inventions include crystalloid bolus, analgesics, antibiotics. Initial workup reviewed by me hematologic labs are remarkable for normal white count at 6, BUN 32, creatinine 0.80, BNP was 662 troponin was less than 0.01. Patient CT scan of her head was normal. I had a lengthy discussion with and he states that she does have dementia but she is alert and oriented x 3 at this time and she tells me that she is not staying in a assisted and she does not want to be admitted. He tells me that he does not want her admitted and he has help with her at home including his children and the [employer]. He says that she did fall a few days ago and he had them help her up. Otherwise patient has a decreased appetite but we got her a tray here in the ED and she ate some and has been drinking well. I did give her IV fluids so she got some normal saline here in the ED. She told me that she had sentimental connections to her home and she was not leaving it. Has been told me that he felt comfortable taking her home but would take case management's number if we offered it. He said he has tried before in the past but would not entertain the idea of going to assisted living or assisted. I did encourage assisted living for them. He said that he may talk to case management about this. Critical Care Critical Care Time Critical Care Time: No
[2025-03-17 15:59] LABS: Microscopic, Urine URINE MICROSCOPIC (MICROSCOPIC)
[2025-03-17 16:11] LABS: Color,Urine YELLOW (Yellow); Glucose,Urine (UA) Negative (Negative); Ketones,Urine TRACE (Negative); Leukocyte Esterase,Urine Negative (Negative); PH,Urine 6.0 (5.0-8.5); Protein,Urine 2+ (Negative); Specific Gravity, Urine 1.025 (1.005-1.030); Urobilinogen,Urine 2.0 EU/dl (0.2)
[2025-03-17 16:31] LABS: Bilirubin,Urine 1+ (Negative)
--- NOTE | 2025-03-17 17:04 | CT_ITS ---
PROCEDURE INFORMATION: Exam: CT Head Without Contrast Exam date and time: 03/17/2025 5:29 PM Age: 74 years old Clinical indication: Altered mental status/memory loss TECHNIQUE: Imaging protocol: Computed tomography of the head without contrast. Radiation optimization: All CT scans at this facility use at least one of these dose optimization techniques: automated exposure control; mA and/or kV adjustment per patient size (includes targeted exams where dose is matched to clinical indication); or iterative reconstruction. COMPARISON: CT HEAD/BRAIN WO CON 05/22/2023 3:55 PM FINDINGS: Limitations: Patient motion. Brain: Age-related volume loss. Decreased attenuation of the supratentorial white matter is likely secondary to chronic microvascular ischemia. No gross acute intracranial hemorrhage. No midline shift. Cerebral ventricles: Ventriculomegaly is commensurate for degree of volume loss. Paranasal sinuses: [id number] paranasal sinus disease. Mastoid air cells: Visualized mastoid air cells are well aerated. Bones: No definite acute fracture. Soft tissues: Unremarkable. IMPRESSION: Patient motion without definite acute intracranial pathology.
[2025-03-17 17:07] LABS: Hematocrit 46.0 % (37.0-47.0); Hemoglobin 14.8 g/dL (12.2-16.2); Immature Granulocytes % 0.3 %; Mean Corpuscular HGB Conc 32.2 g/dL (31.8-35.4); Mean Corpuscular Hemoglobin 29.4 pg (27.0-31.2); Mean Corpuscular Volume 91.5 fl (81-99); Nucleated Red Blood Cells % 0 %; Platelet Count 300 K/mm3 (142-424); Red Blood Count 5.03 M/mm3 (4.20-5.40); Red Cell Distribution Width-SD 48.2 fL; White Blood Count 10.9 K/mm3 (4.8-10.8)
[2025-03-17] MEDS: 0.9 % SODIUM CHLORIDE 1000ML 1,000 ML 999 ML IV (17:07)
[2025-03-17 17:18] LABS: Albumin Level 3.8 g/dl (3.5-5.0); Chloride 108 mmol/L (98-107); Potassium 3.5 mmoL/L (3.5-5.1); Sodium 141 mmol/L (136-145)
[2025-03-17 17:21] LABS: Alanine Aminotransferase 26 U/L (12-78); Albumin/Globulin Ratio 1.1 (1.1-1.8); Alkaline Phosphatase 88 U/L (38-126); Anion Gap 9.5 mEq/L (5-15); Aspartate Amino Transferase 47 U/L (14-36); Bilirubin,Total 0.7 mg/dl (0.2-1.3); Blood Urea Nitrogen 21 mg/dl (7-17); Calcium 8.9 mg/dl (8.4-10.2); Carbon Dioxide 27 mmol/L (22.0-30.0); Creatine Kinase 387 U/L (30-135); Creatinine Clearance Estimated 63 mL/min (50-200); Creatinine,Serum 0.70 mg/dl (0.52-1.04); Estimated Glomerular Filt Rate 82 ml/min (>60); GFR (African American) 99 ML/MIN (>60); Globulin 3.4 g/dL (1.3-3.2); Glucose 94 mg/dl (74-100); Lipase 78 U/L (23-300); Total Protein,Serum 7.2 g/dl (6.3-8.2)
[2025-03-17 17:22] LABS: Magnesium 2.1 mg/dl (1.6-2.3)
[2025-03-17 18:10] LABS: Hepatitis C Ab Qual. W/ RFX NEGATIVE (Negative)
== END 2025-03-17 19:16 | disposition home or self-care (01) ==
PROVIDERS: Nurse Practitioner; Emergency Provider Student in an Organized Health Care Education/Training Program; PCP Nurse Practitioner Family
DX: R41.82 Altered mental status, unspecified (principal)
CPT/HCPCS: 70450; 80053; 81001; 82550; 83605; 83690; 83735; 85025; 86803; 87389; 96361; 96365; 99285; J0696; J7030

== ENCOUNTER 2025-03-24 12:28 | Observation (INO) | payer MEDICARE, SELFPAY ==
[2025-03-24] VITALS (7 sets, daily range): BP systolic 136–183; BP diastolic 81–94; PULSE 90–113; RESP 14–24; TEMP 36.9–37.2; O2SAT 90–99; BMI 25.0
--- NOTE | 2025-03-24 12:36 | CT_ITS ---
FINAL REPORT TECHNIQUE: Thin section axial images were obtained through the cervical spine without contrast. Multiplanar reconstruction images were obtained from the axial data. Exam was performed using dose reduction techniques. CLINICAL HISTORY: Fall COMPARISON: 05/22/2023 FINDINGS: There is no acute fracture of the cervical spine. There is anterolisthesis of C5 on C6. Fusion is seen at C6-7. Findings are unchanged. There is multilevel degenerative disc disease, mild, which appears unchanged from prior exam. There is no evidence of unilateral or bilateral facet lock. Vertebral body height is otherwise preserved. No acute paraspinal abnormality is identified. IMPRESSION: Multilevel degenerative change without acute bony abnormality. Consider MRI if clinical concern persists. Reviewed, Interpreted and Dictated by Lauren Hilliard MD Transcribed by Fifi Fragoso Authenticated and [facility]
--- NOTE | 2025-03-24 12:36 | CT_ITS ---
FINAL REPORT TECHNIQUE: Thin section axial images were obtained from skull base to vertex without contrast. Coronal reconstruction images were obtained from the axial data. Exam was performed using dose reduction techniques such as automated exposure control, adjustment of the mA and kV according to patient size, and use of iterative reconstruction technique. CLINICAL HISTORY: fall COMPARISON: 03/17/2025 FINDINGS: There is atrophy and chronic small vessel ischemic change. There is no mass effect or midline shift. There is no hydrocephalus. There is no intracranial hemorrhage. The posterior fossa is without acute abnormality. The basilar cisterns are preserved. Partial opacification is seen of the left sphenoid sinus. There is worsening mucoperiosteal thickening of the right maxillary sinus. No acute osseous abnormality is identified. IMPRESSION: No acute intracranial abnormality. Reviewed, Interpreted and Dictated by Lauren Hilliard MD Transcribed by Fifi Fragoso Authenticated and [facility]
--- NOTE | 2025-03-24 12:36 | XR_ITS ---
FINAL REPORT CLINICAL HISTORY: Fall COMPARISON: 05/22/2023 FINDINGS: A portable view of the chest was obtained. Cardiac and mediastinal silhouettes are within normal limits. Lung volumes are low. There is no focal infiltrate. A small left pleural effusion is noted. There is no pneumothorax. There are several lower lateral left rib fractures. IMPRESSION: Small left pleural effusion. Several lower lateral left rib fractures. Reviewed, Interpreted and Dictated by Lauren Hilliard MD Transcribed by Heidi Arceo Authenticated and . [facility]
--- NOTE | 2025-03-24 12:36 | CT_ITS ---
FINAL REPORT TECHNIQUE: Thin section axial images are obtained through the abdomen and pelvis after intravenous contrast. Reconstruction images were obtained from the axial data. Exam was performed using dose reduction techniques. This study was performed with techniques to keep radiation doses as low as reasonably achievable (ALARA). Individualized dose reduction techniques using automated exposure control or adjustment of mA and/or kV according to the patient's size were employed. CLINICAL HISTORY: Fall, found down, sacral decubitus ulcer COMPARISON: None FINDINGS: LIVER: Homogeneous. No focal lesion. GALLBLADDER/BILIARY SYSTEM: The gallbladder is not visualized. No biliary dilatation. SPLEEN: Unremarkable. PANCREAS: Unremarkable. ADRENALS: Unremarkable. KIDNEYS/URETERS/BLADDER: No hydronephrosis, renal mass, or renal stone. Unremarkable urinary bladder. GI TRACT: No small bowel obstruction or dilatation. The appendix is not visualized, however there are no secondary signs to suggest appendicitis. There is diverticulosis without evidence of diverticulitis. Moderate stool is present in the rectum. PELVIC ORGANS: The uterus has been surgically resected. LYMPH NODES/RETROPERITONEUM/MESENTERY: No lymphadenopathy. No abdominal aortic aneurysm. ABDOMINAL WALL: The abdominal wall is intact. There is nonspecific subcutaneous edema in the buttocks bilaterally. FREE FLUID: No ascites. BONES: No acute osseous abnormality. IMPRESSION: 1. No acute abnormality noted in the abdomen or pelvis. 2. Nonspecific subcutaneous edema in the buttocks bilaterally. Reviewed, Interpreted and Dictated by Lauren Hilliard MD Transcribed by Tiffanie Casanova Authenticated and . [facility]
--- NOTE | 2025-03-24 12:36 | CT_ITS ---
FINAL REPORT TECHNIQUE: Axial imaging of the chest is obtained after the administration of contrast. 3-D MIP reformatted images were also obtained and reviewed per PE protocol. CLINICAL HISTORY: Found down, AMS, shortness of breath COMPARISON: 05/22/2023 FINDINGS: The pulmonary arteries are well filled. There is no evidence of pulmonary embolus. There is no aortic dissection. Heart size is mildly enlarged. The ascending aorta measures 41 mm in diameter, mildly enlarged. There is no mediastinal, hilar, or axillary lymphadenopathy. Bilateral lower lobe atelectasis is present. There is evidence of prior granulomatous disease. There are trace bilateral pleural effusions, and no pericardial effusion. No pneumothorax is present. Limited evaluation of the upper abdomen is without acute abnormality. There are fractures of the left 8th, 9th and 10th ribs. IMPRESSION: 1. No evidence of pulmonary embolism or aortic dissection. 2. There is an ascending aortic aneurysm which measures 41 mm in diameter. 3. There are fractures of the left 8th, 9th, and 10th ribs, without evidence of pneumothorax. 4. Mild enlargement of the heart. Reviewed, Interpreted and Dictated by Lauren Hilliard MD Transcribed by Tiffanie Casanova Authenticated and [facility]
--- NOTE | 2025-03-24 12:36 | XR_ITS ---
FINAL REPORT CLINICAL HISTORY: Fall COMPARISON: 05/22/2023 FINDINGS: SINGLE VIEW PELVIS: A single view of the pelvis was obtained. There are postoperative changes from ORIF of the right hip. There is no acute fracture or dislocation. 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 Contrast is seen in the urinary bladder. IMPRESSION: No acute osseous abnormality. Reviewed, Interpreted and Dictated by Lauren Hilliard MD Transcribed by Heidi Arceo Authenticated and [facility]
--- NOTE | 2025-03-24 12:36 | CT_ITS ---
FINAL REPORT TECHNIQUE: Axial CT images of the thoracic spine were obtained without contrast. Sagittal and coronal reformatted images were also obtained. This study was performed with techniques to keep radiation doses as low as reasonably achievable (ALARA). Individualized dose reduction techniques using automated exposure control or adjustment of mA and/or kV according to the patient''s size were employed. CLINICAL HISTORY: Fall COMPARISON: 05/22/2023 FINDINGS: There very mild compression deformities of the lower thoracic vertebral bodies, unchanged from prior exam of the chest. There is multilevel degenerative disc disease. IMPRESSION: No thoracic spine fracture Multilevel degenerative disc disease. Reviewed, Interpreted and Dictated by Lauren Hilliard MD Transcribed by Fifi Fragoso Authenticated and [facility]
--- NOTE | 2025-03-24 12:36 | CT_ITS ---
FINAL REPORT TECHNIQUE: Thin section axial images were obtained through the lumbar spine without contrast. Sagittal and coronal reconstruction images were obtained from the axial data. Exam was performed using dose reduction techniques. CLINICAL HISTORY: Fall COMPARISON: 05/22/2023 FINDINGS: There is no acute fracture of the lumbar spine. Vertebral body height is preserved. There is grade 1 anterolisthesis of L4 on L5 and L5 on S1. Multilevel degenerative disc disease is seen, most pronounced at L5-S1. There is no significant central stenosis. IMPRESSION: No acute abnormality of the lumbar spine. Mild multilevel degenerative disease. Reviewed, Interpreted and Dictated by Lauren Hilliard MD Transcribed by Fifi Fragoso Authenticated and . [facility]
--- NOTE | 2025-03-24 12:40 | CT_ITS ---
FINAL REPORT TECHNIQUE: Thin section axial images were obtained from the aortic arch to the skull base after intravenous contrast injection per CTA protocol. Multiplanar reconstruction images were obtained. Exam was performed using dose reduction techniques and the ALARA principle. CLINICAL HISTORY: seizure, cranial nerve III palsy COMPARISON: None FINDINGS: CTA NECK: Aortic arch: There is a normal three-vessel configuration to the aortic arch. There is no significant stenosis of the great vessels at their origins. Right carotid artery: The right common carotid artery is patent without stenosis. There is minimal calcified plaque present in the carotid bulb. The cervical portions of the right internal carotid artery are patent without stenosis. 0% stenosis per NASCET criteria. Left carotid artery: The left common carotid artery is patent without stenosis. There is minimal calcified plaque present in the carotid bulb without stenosis. The cervical portions of the left internal carotid artery are patent without stenosis. 0% stenosis per NASCET criteria. Vertebral arteries: The vertebral arteries are patent. No significant stenosis. Other soft tissues: Unremarkable. IMPRESSION: No significant stenosis in the origins of the great vessels, or in either carotid or vertebral arteries. Reviewed, Interpreted and Dictated by Lauren Hilliard MD Transcribed by Tiffanie Casanova Authenticated and [facility]
--- NOTE | 2025-03-24 12:40 | CT_ITS ---
FINAL REPORT TECHNIQUE: Thin section axial images are obtained through the brain after intravenous contrast injection. Multiplanar reconstructions were obtained from the axial data. Exam was performed using dose reduction techniques such as automated exposure control, adjustment of the mA and kV according to patient size, and use of iterative reconstruction technique. CLINICAL HISTORY: Fall, seizure, cranial nerve III palsy COMPARISON: None FINDINGS: The intracerebral portions of the carotid arteries are patent. The anterior and middle cerebral arteries are patent without stenosis or occlusion. The posterior cerebral arteries are patent. The basilar artery is patent. The vertebral arteries are patent. There is no significant stenosis, aneurysm, or AVM. IMPRESSION: Unremarkable CT angiogram of the intracerebral vasculature. Reviewed, Interpreted and Dictated by Lauren Hilliard MD Transcribed by Tiffanie Casanova Authenticated and [facility]
--- NOTE | 2025-03-24 12:46 | ED_ITS ---
<Statement entered by Darwin Eaton MD - 03/25/25 08:59> I was consulted by the ADAN, and we discussed the complexity of the problems being addressed. I approved the treatment and management plan for this patient's care in the emergency department, thus performing a substantive portion of the medical decision making. Darwin Eaton MD, VILMA, FACEP Discharge Plan Disposition Patient Disposition: Admitted Condition: Fair Clinical Impressions Clinical Impression: Altered mental state, Adult failure to thrive, Frequent falls, Multiple rib fractures Discharge ED Provider: Darwin Eaton General Adult HPI <JORGE ALBERTO Roberts - Last Filed: 03/24/25 16:28> General Chief complaint: Altered Mental Status Stated complaint: fall Time Seen by Provider: 03/24/25 12:35 Mode of Arrival: EMS Source of Information: Patient, EMS and Medical Record Limitations: Altered Mental Status History of Present Illness HPI narrative: 74-year-old female presents to the emergency department via EMS as being found down, data deficient but patient was found to be found down for 3 to 4 days, EMS and route started 1 L LR IV, patient was found to be in what appears to be atrial fibrillation with episodes of RVR, unsure of chronicity, as well as some breakdown to her sacral decubitus region/lumbar/lower T-spine region. Patient is GCS of 14 alert to person and place, disoriented to time, she has some retrograde amnesia about the event and does not read what happened, she denies/is unsure of any falls, she denies any fever chills chest pain shortness of breath nausea vomiting constipation diarrhea, denies any pain, other past medical history upon chart review is consistent with uterine prolapse, rectocele, data deficient history of DVT and pulmonary embolism, unsure of anticoagulation status, history of sacral cubitus ulcer/sacral decubitus breakdown, pancreatic lesion. Initial triage vitals notable for tachycardia, tachypnea, thus patient was placed on 2 L nasal cannula, not initially meeting SIRS and sepsis criteria. Please note that above description of symptoms, in this electronic medical record under categorization of recalled from ER triage doctor by RN are reflective of an initial nursing assessment, however, is not reflective of my full history and physical exam that was personally taken and clarified. Consequentially, this preceding description of symptoms, which may include the patient's categorized chief complaint in the EMR, do not reflect my personal clinical impression, and the ultimate description of history of present illness and patient stated complaints should be deferred to this section of the note. Unless stated otherwise or congruent with this section of the note, additional signs, symptoms, or incongruence should be interpreted as inaccurate with my clinical impression. Onset (ago): unknown Related Data Home Medications ?Medication ?Instructions ?Recorded ?Confirmed No Known Home Medications 03/25/2503/02 Allergies Allergy/AdvReac Type Severity Reaction Status Date / Time codeine AdvReac Nausea Verified 04/12/23 11:00 PFSH <JORGE ALBERTO Roberts - Last Filed: 03/24/25 16:28> PFS Disclaimer: The information contained in this section may have been updated after the patient was seen, as this information can be updated by other users. Surgical History H/O: hysterectomy History of cholecystectomy Family History Other Cancer Diabetes Heart attack Hypertension Social History Smoking Status: Never smoker alcohol intake: never substance use type: denies use current occupational status: disabled Travel in the last 8 weeks?: None caffeine: Yes Have you lived/traveled outside [place] in past 30 days?: No Contact w/someone who lives/traveled outside US past 30 days?: No Exposure to someone with infectious disease in past 14 days?: No Do you have a fever (greater than 100.4 F or 38 C)?: No Have you tested positive for COVID-19?: No Exposed to someone with COVID-19 in past 14 days?: No Do you have a sore throat?: No Do you have a cough?: No Do you have any weakness?: No Do you have any diarrhea?: No Are you experiencing any unusual bleeding?: No Do you have any muscle aches/pain?: No Do you have any abdominal pain?: No Are you experiencing loss of taste or smell?: No Other Medical History Have you received the Flu Vaccine for this season: No Have you received the Pneumonia Vaccine: No <JORGE ALBERTO Roberts - Last Filed: 03/24/25 16:28> ROS Obtained: Yes All systems reviewed & no additional complaints except as documented Physical Exam <JORGE ALBERTO Roberts - Last Filed: 03/24/25 16:28> General General appearance: alert and in no apparent distress Comment: GCS 14, answers questions, confused about place and time Head Head exam: atraumatic and normocephalic Eye Eye exam: Present PERRL, EOMI and other (Abnormally shaped iris of the left eye, however patient moves eye /tracks appropriately, no obvious cranial nerve III palsy, no pain with extraocular movement) ENT ENT exam: Present mucous membranes moist Neck Neck exam: Present normal inspection Chest Chest inspection: Present normal inspection and symmetric chest wall rise Respiratory Respiratory exam: Present normal lung sounds bilaterally; Absent respiratory distress, wheezes or stridor Cardiovascular Cardiovascular exam: Present tachycardia and irregular rhythm; Absent normal rhythm Abdominal Exam Abdominal exam: Present soft; Absent tenderness, guarding, rebound or rigidity Extremities Exam Extremities exam: Present other (Moves extremities to command, neurovascular intact, no obvious open fracture or traumatic deformity/dislocation) Back Exam Back exam: Absent normal inspection Comment: Obvious skin skin breakdown/stage I pressure ulcer of the sacral decubitus ulcer/lumbar and lower thoracic Neurological Exam Neurological exam: Present alert and oriented X3 Psychiatric Psychiatric exam: Present normal affect Skin Skin exam: Present warm, dry, erythema and other (Obvious skin skin breakdown/stage I pressure ulcer of the sacral decubitus ulcer/lumbar and lower thoracic) Medical Decision Making <JORGE ALBERTO Roberts - Last Filed: 03/24/25 16:28> Medical Records Medical records reviewed: Yes I reviewed the patient's medical records. Screening: Per USPSTF and CDC recommendations, given the prevalence of disease in our region, it is our hospital?s policy to screen for HIV and viral Hepatitis for all patients aged 18 and over and those with ongoing risk factors. Sebastián Inquiry Pt receiving controlled substance: No Sebastián was queried for this patient: No Vital Signs: 03/24/25 12:28 03/24/25 13:00 03/24/25 13:22 Temperature 98.4 F Temperature Source Rectal Pulse Rate 99 H 100 H Pulse Rate [Left Radial] 113 H Respiratory Rate 17 24 Blood Pressure 183/93 H 151/94 H Blood Pressure [Right Arm] 147/88 H Blood Pressure Mean [Right Arm] 107 Blood Pressure Source Automatic Cuff Blood Pressure Source [Right Arm] Automatic Cuff Blood Pressure Position Supine Blood Pressure Position [Right Arm] Sitting 02 Sat by Pulse Oximetry 90 L 99 Oxygen Delivery Method Room Air Nasal Cannula Oxygen Flow Rate (LPM) 2 03/24/25 16:04 03/24/25 16:20 Temperature 98.4 F Temperature Source Oral Pulse Rate 100 H Pulse Rate [Left Radial] Respiratory Rate 24 Blood Pressure 151/94 H Blood Pressure [Right Arm] Blood Pressure Mean [Right Arm] Blood Pressure Source Automatic Cuff Blood Pressure Source [Right Arm] Blood Pressure Position Supine Blood Pressure Position [Right Arm] 02 Sat by Pulse Oximetry Oxygen Delivery Method Room Air Nasal Cannula Oxygen Flow Rate (LPM) 2 Lab Data Lab results reviewed: Yes I reviewed the patient's lab results. Lab Results 03/24/25 12:07: WBC 8.9, RBC 5.60 H, Hgb 15.8, Hct 50.8 H, MCV 90.7, MCH 28.2, M CHC 31.1 L, RDW 13.9, Plt Count 360, MPV 10.3, Neut % (Auto) 80.5 H, Lymph % (Auto) 11.7, Gila % (Auto) 5.4, Eos % (Auto) 1.5, Baso % (Auto) 0.6, Neut # (Auto) 7.2, Lymph # (Auto) 1.0, Gila # (Auto) 0.5, Eos # (Auto) 0.1, Baso # (Auto) 0.1, PT 11.9, INR 1.08, Sodium 141, Potassium 4.4, Chloride 102, Carbon Dioxide 30, Anion Gap 13.4, BUN 12, Creatinine 0.70, Estimated GFR 82, Est GFR ( Amer) 99, Glucose 99, Hemoglobin A1c 5.8, Uric Acid 3.3, Calcium 9.8, Magnesium 2.3, Total Bilirubin 0.8, AST 50 H, ALT 36, Alkaline Phosphatase 113, Total Creatine Kinase 300 H, Troponin I < 0.01, NT-Pro-B Natriuret Pep 1170 H, Total Protein 8.1, Albumin 4.2, Globulin 3.9 H, Albumin/Globulin Ratio 1.1, Lipase 85 03/24/25 14:09: Urine Color Yellow, Urine Appearance Clear, Urine pH 7.0, Ur Specific [place] <= 1.005, Urine Protein Negative, Urine Glucose (UA) Negative, Urine Ketones Negative, Urine Blood Trace-l, Urine Nitrate Negative, Urine Bilirubin Negative, Urine Urobilinogen 1.0, Ur Leukocyte Esterase Negative, Urine RBC Occasional, Urine WBC Occasional, Ur Squamous Epith Cells Occasional 03/24/25 14:16: Lactate 2.3 H 03/24/25 15:51: Troponin I < 0.01, TSH < 0.02 L 03/25/25 05:17 03/25/25 05:17 Orders (Tests/Meds): ED MEDICATIONS Generic Name Dose Route Start Last Admin Trade Name Freq PRN Reason Stop Dose Admin Acetaminophen 650 mg 03/24/25 15:46 Acetaminophen 325mg Tab PO 04/23/25 15:45 Q4HP PRN Fever or Mild Pain (1-3) Hydrocodone Bitart/Acetaminophen 1 tab 03/24/25 15:46 Hydrocodone/Apap 5/325 Mg Tablet PO 04/23/25 15:45 Q4HP PRN Mild to Moderate Pain (1-6) Enoxaparin Sodium 40 mg 03/25/25 09:00 03/25/25 08:11 Enoxaparin 40mg/0.4ml Syringe SUBCUT 04/24/25 08:59 40 mg DAILY JAYDE Administration Levetiracetam 500 mg/ Sodium 105 mls @ 210 mls/hr 03/25/25 09:00 03/25/25 08:38 Chloride IV 04/24/25 08:59 Infused Q12H JAYDE Infusion Ondansetron HCl 4 mg 03/24/25 15:46 Ondansetron 4mg/2ml Vial IV 04/23/25 15:45 Q8HP PRN Nausea Sodium Chloride 10 ml 03/25/25 07:23 Sodium Chloride 0.9% 10ml Flush Syringe IV 04/24/25 07:22 NEEDED PRN Maintain IV Site Discontinued Medications Generic Name Dose Route Start Last Admin Trade Name Freq PRN Reason Stop Dose Admin Levetiracetam 4,000 mg/ Sodium 140 mls @ 560 mls/hr 03/24/25 12:45 03/24/25 14:19 Chloride IV 03/24/25 12:59 Infused ONCE ONE Infusion Levetiracetam 500 mg/ Sodium 105 mls @ 210 mls/hr 03/24/25 21:15 03/24/25 22:30 Chloride IV 04/23/25 21:14 Infused Q12H JAYDE Infusion Iopamidol 160 ml 03/24/25 13:00 03/24/25 13:01 Iopamidol-370 (76%);100ml Bottle IV 03/24/25 13:01 160 ml ONCE ONE Administration Sodium Chloride 100 ml 03/24/25 13:00 03/24/25 13:01 0.9 % Sodium Chloride 50 Ml Vial IV 03/24/25 13:01 100 ml ONCE ONE Administration Sodium Chloride 10 ml 03/24/25 13:00 03/24/25 13:01 Sodium Chloride 0.9% 10ml Syr (Rad Only) IV 04/23/25 12:59 10 ml NEEDED PRN Administration Maintain IV Site ORDERS Category Date Time Status CT abdomen pelvis w con Stat Cat Scan 03/24/25 12:[address] angio chest PE protocol Stat Cat Scan 03/24/25 12:[address] angio head Stat Cat Scan 03/24/25 12:[address] angio neck Stat Cat Scan 03/24/25 12:[address] cervical spine wo con Stat Cat Scan 03/24/25 12:[address] head/brain wo con Stat Cat Scan 03/24/25 12:[address] lumbar spine wo con Stat Cat Scan 03/24/25 12:[address] thoracic spine wo con Stat Cat Scan 03/24/25 12:36 Completed Pelvis XR 1-2 views [XR pelvis 1-2V] Stat Exams 03/24/25 12:36 Completed XR chest portable Stat Exams 03/24/25 12:36 Completed CK [Creatine Kinase] Stat Lab 03/24/25 12:07 Completed Complete Blood Count Auto Diff AMLAB Lab 03/25/25 05:17 Completed Complete Blood Count Auto Diff AMLAB Lab 03/26/25 06:00 Ordered Complete Blood Count Auto Diff Stat Lab 03/24/25 12:07 Completed Comprehensive Metabolic Panel AMLAB Lab 03/25/25 05:17 Completed Comprehensive Metabolic Panel AMLAB Lab 03/26/25 06:00 Ordered Comprehensive Metabolic Panel Stat Lab 03/24/25 12:07 Completed Lactic Acid Stat Lab 03/24/25 14:16 Completed Lipase Stat Lab 03/24/25 12:07 Completed Lipid Panel AMLAB Lab 03/25/25 05:17 Completed Magnesium AMLAB Lab 03/25/25 05:17 Completed Magnesium Stat Lab 03/24/25 12:07 Completed NT Pro Brain Natriuretic Pep. Stat Lab 03/24/25 12:07 Completed PT INR [Prothrombin Time INR] Stat Lab 03/24/25 12:07 Completed Troponin I Q3H Lab 03/24/25 15:51 Completed Troponin I Q3H Lab 03/24/25 19:10 Completed Troponin I Stat Lab 03/24/25 12:07 Completed Uric Acid Stat Lab 03/24/25 12:07 Completed Urinalysis and Microscopic Stat Lab 03/24/25 14:09 Completed Medical Decision Narrative: 74-year-old female presents emergency department via EMS for a fall, unsure of time down, differential diagnose include but not limited to cardiac arrhythmia, electrolyte disturbance, pressure ulcer, rhabdomyolysis, acute UTI, uremic encephalopathy, metabolic cephalopathy, toxic encephalopathy, sepsis, pneumonia, PE, acute SDH, traumatic SAH, C-spine fracture, T-spine fracture, L-spine fracture, hematoma, soft tissue injury, contusion among others. I discussed this patient's case with the attending physician Dr. Eaton Will obtain basic laboratory studies, EKG, CT head without contrast, CTA head and neck with and without contrast, CTA of the chest, CT ab pelvis with contrast, CT cervical spine, lumbar spine and T-spine, will obtain chest x-ray and pelvic x-ray, will obtain creatinine kinase level lactic acid level lipase level magnesium level proBNP, coags, troponin, urinalysis, uric acid level, of note, nursing staff stated the patient had witnessed seizure-like activity, patient does have some nystagmus on my exam, I unfortunately did not witness this seizure-like activity, with patient's data deficient history and unknown time down from fall several days ago will load the patient with Keppra via pharmacy, at 4000 mg IV, and place the patient in a c-collar out of an abundance of caution. CBC is unremarkable Coags within normal limits CK is mild elevated at 300. AST is minimally elevated at 50, proBNP is elevated at 1170. Initial troponin is less than 0.01. I had a discussion with the patient's at the bedside, patient's states that the patient was down since Monday, 1120, patient initially stated she was okay, states that he could not help her up, thus has been on the floor since then by her chair , however this is somewhat data deficient. There seems to be a degree of failure to thrive as this is patient's second emergency department visit this month for similar complaint, endorses frequent falls/generalized weakness and failure to thrive at home. Also of note, upon chart review patient was offered potential placement/rehab last Emergency Department visit on 03/17/2025, they denied at this time states that they would like to pursue this at this time. I reviewed the patient's CT head without contrast along the corresponding radiologic report, no acute intracranial abnormality. I reviewed the patient's CT cervical spine without contrast on the corresponding radiologic report, with low degenerative changes that acute bony abnormality, consider MRI if clinical concern persist Never the patient CT thoracic spine without contrast along the corresponding radiologic report, no thoracic spine fracture multilevel degenerative disc disease. I reviewed the patient's CT lumbar spine without contrast along the corresponding radiologic report, no acute abnormality of the lumbar spine mild multilevel degenerative disc disease UA is unremarkable, with the exception of trace hematuria. I reviewed the patient's chest x-ray along the corresponding radiologic report, small left pleural effusion and several lower lateral left rib fractures. I reviewed the patient's pelvic x-ray along the corresponding radiologic report, no acute osseous abnormality. UA is notable for occasional RBCs occasional WBCs occasional squamous epithelial cells negative nitrites negative leukocyte esterase. Minimal lactic acidosis of 2.3 I reviewed the patient's CTA head and neck with and without contrast on the corresponding radiologic reports, no significant stenosis in the origin of the great vessels or either carotid or vertebral artery, unremarkable CT angiogram of the anterior cerebral vasculature. Patient has not yet had any other seizure-like activity throughout her time in the emergency department after I was called to the bedside after initial seizure-like activity witnessed by nursing staff, I do not believe the patient was postictal as she was continually GCS of 14, no other concerning signs or symptoms, after negative neurological scans, lower concern for seizure. I reviewed the patient's CTA abdomen pelvis with contrast on the corresponding radiologic report, no acute abnormality noted in the abdomen pelvis, nonspecific subcutaneous edema in the buttocks bilaterally. I reviewed the patient's CTA chest without contrast on the corresponding radiologic report, no evidence of pulmonary embolism or any dissection, there is an ascending aortic aneurysm which measures 41 mm in diameter, there are fractures of the left 8th, 9th and 10th ribs without evidence of pneumothorax mild enlargement of the heart. I discussed this patient's case with the on-call general surgeon at approximately 3:35 PM, he recommends observation admission and will consult if needed for rib fractures. I discussed this patient's case with the hospitalist physician at approximately 3:51 PM, he is in agreement with the current admission plan/treatment plan. I then discussed this recommendation for admission for failure to thrive frequent falls and rib fractures with the patient's at the bedside he is in agreement with the current admission plan/treatment plan. <Darwin Eaton MD - Last Filed: 03/25/25 09:00> Vital Signs: 03/24/25 12:28 03/24/25 13:00 03/24/25 13:22 Temperature 98.4 F Temperature Source Rectal Pulse Rate 99 H 100 H Pulse Rate [Left Radial] 113 H Respiratory Rate 17 24 Blood Pressure 183/93 H 151/94 H Blood Pressure [Right Arm] 147/88 H Blood Pressure Mean [Right Arm] 107 Blood Pressure Source Automatic Cuff Blood Pressure Source [Right Arm] Automatic Cuff Blood Pressure Position Supine Blood Pressure Position [Right Arm] Sitting 02 Sat by Pulse Oximetry 90 L 99 Oxygen Delivery Method Room Air Nasal Cannula Oxygen Flow Rate (LPM) 2 03/24/25 16:04 03/24/25 16:20 Temperature 98.4 F Temperature Source Oral Pulse Rate 100 H Pulse Rate [Left Radial] Respiratory Rate 24 Blood Pressure 151/94 H Blood Pressure [Right Arm] Blood Pressure Mean [Right Arm] Blood Pressure Source Automatic Cuff Blood Pressure Source [Right Arm] Blood Pressure Position Supine Blood Pressure Position [Right Arm] 02 Sat by Pulse Oximetry Oxygen Delivery Method Room Air Nasal Cannula Oxygen Flow Rate (LPM) 2 Lab Data Lab Results 03/24/25 12:07: WBC 8.9, RBC 5.60 H, Hgb 15.8, Hct 50.8 H, MCV 90.7, MCH 28.2, M CHC 31.1 L, RDW 13.9, Plt Count 360, MPV 10.3, Neut % (Auto) 80.5 H, Lymph % (Auto) 11.7, Gila % (Auto) 5.4, Eos % (Auto) 1.5, Baso % (Auto) 0.6, Neut # (Auto) 7.2, Lymph # (Auto) 1.0, Gila # (Auto) 0.5, Eos # (Auto) 0.1, Baso # (Auto) 0.1, PT 11.9, INR 1.08, Sodium 141, Potassium 4.4, Chloride 102, Carbon Dioxide 30, Anion Gap 13.4, BUN 12, Creatinine 0.70, Estimated GFR 82, Est GFR ( Amer) 99, Glucose 99, Hemoglobin A1c 5.8, Uric Acid 3.3, Calcium 9.8, Magnesium 2.3, Total Bilirubin 0.8, AST 50 H, ALT 36, Alkaline Phosphatase 113, Total Creatine Kinase 300 H, Troponin I < 0.01, NT-Pro-B Natriuret Pep 1170 H, Total Protein 8.1, Albumin 4.2, Globulin 3.9 H, Albumin/Globulin Ratio 1.1, Lipase 85 03/24/25 14:09: Urine Color Yellow, Urine Appearance Clear, Urine pH 7.0, Ur Specific [place] <= 1.005, Urine Protein Negative, Urine Glucose (UA) Negative, Urine Ketones Negative, Urine Blood Trace-l, Urine Nitrate Negative, Urine Bilirubin Negative, Urine Urobilinogen 1.0, Ur Leukocyte Esterase Negative, Urine RBC Occasional, Urine WBC Occasional, Ur Squamous Epith Cells Occasional 03/24/25 14:16: Lactate 2.3 H 03/24/25 15:51: Troponin I < 0.01, TSH < 0.02 L Orders (Tests/Meds): ED MEDICATIONS Generic Name Dose Route Start Last Admin Trade Name Freq PRN Reason Stop Dose Admin Acetaminophen 650 mg 03/24/25 15:46 Acetaminophen 325mg Tab PO 04/23/25 15:45 Q4HP PRN Fever or Mild Pain (1-3) Hydrocodone Bitart/Acetaminophen 1 tab 03/24/25 15:46 Hydrocodone/Apap 5/325 Mg Tablet PO 04/23/25 15:45 Q4HP PRN Mild to Moderate Pain (1-6) Enoxaparin Sodium 40 mg 03/25/25 09:00 03/25/25 08:11 Enoxaparin 40mg/0.4ml Syringe SUBCUT 04/24/25 08:59 40 mg DAILY JAYDE Administration Levetiracetam 500 mg/ Sodium 105 mls @ 210 mls/hr 03/25/25 09:00 03/25/25 08:38 Chloride IV 04/24/25 08:59 Infused Q12H JAYDE Infusion Ondansetron HCl 4 mg 03/24/25 15:46 Ondansetron 4mg/2ml Vial IV 04/23/25 15:45 Q8HP PRN Nausea Sodium Chloride 10 ml 03/25/25 07:23 Sodium Chloride 0.9% 10ml Flush Syringe IV 04/24/25 07:22 NEEDED PRN Maintain IV Site Discontinued Medications Generic Name Dose Route Start Last Admin Trade Name Freq PRN Reason Stop Dose Admin Levetiracetam 4,000 mg/ Sodium 140 mls @ 560 mls/hr 03/24/25 12:45 03/24/25 14:19 Chloride IV 03/24/25 12:59 Infused ONCE ONE Infusion Levetiracetam 500 mg/ Sodium 105 mls @ 210 mls/hr 03/24/25 21:15 03/24/25 22:30 Chloride IV 04/23/25 21:14 Infused Q12H JAYDE Infusion Iopamidol 160 ml 03/24/25 13:00 03/24/25 13:01 Iopamidol-370 (76%);100ml Bottle IV 03/24/25 13:01 160 ml ONCE ONE Administration Sodium Chloride 100 ml 03/24/25 13:00 03/24/25 13:01 0.9 % Sodium Chloride 50 Ml Vial IV 03/24/25 13:01 100 ml ONCE ONE Administration Sodium Chloride 10 ml 03/24/25 13:00 03/24/25 13:01 Sodium Chloride 0.9% 10ml Syr (Rad Only) IV 04/23/25 12:59 10 ml NEEDED PRN Administration Maintain IV Site ORDERS Category Date Time Status CT abdomen pelvis w con Stat Cat Scan 03/24/25 12:[address] angio chest PE protocol Stat Cat Scan 03/24/25 12:[address] angio head Stat Cat Scan 03/24/25 12:[address] angio neck Stat Cat Scan 03/24/25 12:[address] cervical spine wo con Stat Cat Scan 03/24/25 12:[address] head/brain wo con Stat Cat Scan 03/24/25 12:[address] lumbar spine wo con Stat Cat Scan 03/24/25 12:[address] thoracic spine wo con Stat Cat Scan 03/24/25 12:36 Completed Pelvis XR 1-2 views [XR pelvis 1-2V] Stat Exams 03/24/25 12:36 Completed XR chest portable Stat Exams 03/24/25 12:36 Completed CK [Creatine Kinase] Stat Lab 03/24/25 12:07 Completed Complete Blood Count Auto Diff AMLAB Lab 03/25/25 05:17 Completed Complete Blood Count Auto Diff AMLAB Lab 03/26/25 06:00 Ordered Complete Blood Count Auto Diff Stat Lab 03/24/25 12:07 Completed Comprehensive Metabolic Panel AMLAB Lab 03/25/25 05:17 Completed Comprehensive Metabolic Panel AMLAB Lab 03/26/25 06:00 Ordered Comprehensive Metabolic Panel Stat Lab 03/24/25 12:07 Completed Lactic Acid Stat Lab 03/24/25 14:16 Completed Lipase Stat Lab 03/24/25 12:07 Completed Lipid Panel AMLAB Lab 03/25/25 05:17 Completed Magnesium AMLAB Lab 03/25/25 05:17 Completed Magnesium Stat Lab 03/24/25 12:07 Completed NT Pro Brain Natriuretic Pep. Stat Lab 03/24/25 12:07 Completed PT INR [Prothrombin Time INR] Stat Lab 03/24/25 12:07 Completed Troponin I Q3H Lab 03/24/25 15:51 Completed Troponin I Q3H Lab 03/24/25 19:10 Completed Troponin I Stat Lab 03/24/25 12:07 Completed Uric Acid Stat Lab 03/24/25 12:07 Completed Urinalysis and Microscopic Stat Lab 03/24/25 14:09 Completed Critical Care <JORGE ALBERTO Roberts - Last Filed: 03/24/25 16:28> Critical Care Time Critical Care Time: No <Darwin Eaton MD - Last Filed: 03/25/25 09:00> Critical Care Time Critical Care Time: Yes Attestation: On 03/24/25, the high probability of a clinically significant, sudden or life threatening deterioration of the following system(s) required my full and direct attention, intervention and personal management. The time I documented below is in addition to time spent performing reported procedures but includes the following listed in this critical care notation. Total Time Total Critical Care Time: 35
--- OUTSIDE RECORDS SUMMARY | 2025-03-24 12:51 | XMS_ITS | Encounter Summary ---
Author Organization Healthcare Address [address] [place] [address] Care Team Providers Care Auto Claims Adjuster Name Role Phone Estrellita Persaud APRN Primary Care Provider [phone] Reason for Referral * Consultation (Routine) - Closed Specialty Diagnoses / Procedures Referred By Charleen t Referred To Contact Endocrinology Diagnoses Hyperthyroidism Estrellita Persaud APRN [address] [place] [address] Phone: tel: fax: [facility] End[facility] [address] [place] [address] Phone: tel: fax: Referral ID Status Reason Start Date Expiration Date V isits Requested Visits Authorized [id number] Closed Specialty Services Required 07/18/2023 01/16/2025 1 1 Encounter Details Date Type Department Care Team (Latest Contact Info) Description 07/18/2023 Community Orders Community Practice [address] [place] [address] Estrellita Persaud APRN [address] [place] [address] (Fax) Hyperthyroidism (Primary Dx) Social History Tobacco Use Types Packs/Day Years Used Date Smoking Tobacco: Never Smokeless Tobacco: Never Alcohol Use Standard Drinks/Week Comments Never 0 (1 standard drink = 0.6 oz pur e alcohol) Humiliation, Afraid, Rape, and Kick questionnair e Answer Date Recorded Within the last year, have y ou been afraid of your partner or ex-partner? No 05/24/2023 Within the last year, have y ou been humiliated or emotionally abused in other ways by your partner or ex-partner? No Within the last year, have y ou been kicked, hit, slapped, or otherwise physically hurt by your partner or ex-partner? No 05/24/2023 Within the last year, have y ou been raped or forced to have any kind of sexual activity by your partner or ex-partner? No 05/24/2023 PHQ-2 Answer Date Recorded Patient Health Questionnaire-2 Score 0 06/08/2023 Hunger Vital Sign Answer Date Recorded Within the past 12 months, y ou worried that your food would run out before you got the money to buy more. Never true 05/24/19 Within the past 12 months, t he food you bought just didn't last and you didn't have money to get more. Never true 05/24/2023 PRAPARE - Transportation Answer Date Re corded In the past 12 months, has l ack of transportation kept you from medical appointments or from getting medications? No 05/02 In the past 12 months, has l ack of transportation kept you from meetings, work, or from getting things needed for daily living? No 05/24/2023 Housing Stability Vital Sign Answer Jose e Recorded In the last 12 months, was t here a time when you were not able to pay the mortgage or rent on time? No 05/24/2023 In the last 12 months, how many places have you lived? 1 05/24/2023 In the last 12 months, was t here a time when you did not have a steady place to sleep or slept in a correction (including now)? No 05/24/2023 Utilities Answer Date Recorded In the past 12 months has th e electric, gas, oil, or water company threatened to shut off services in your home? No 05/24/2023 Comments No Sex and Gender Information Value Date Recorded Sex Assigned at Not on file Legal Sex Female 8:45 PM EDT Gender Identity Not on file Sexual Orientation Not on file documented as of this encounter Plan of Treatment Scheduled Referrals Name Type Priority Associated Diagnoses Order Schedule Ambulatory referral to Endocrinology Outpatient Referral Routine Hyperthyroidism Expected: 08/10/2023 (Approximate), Expires: 01/17/2025 documented as of this encounter Visit Diagnoses Diagnosis Hyperthyroidism- Primary Thyrotoxicosis without mention of goiter or other cause, without mention of thyrotoxic crisis or storm documented in this encounter Additional Health Concerns Assessment Noted Time A fall risk assessment has been complete d for the patient 07/05/2023 9:13 AM EST A Body Mass Index follow-up plan has been documented for the patient 07/05/2023 10:20 AM EST documented as of this encounter Care Teams Auto Claims Adjuster Relationship Specialty Start Date End Date Estrellita Persaud APRN [address] [place] [address] PCP - General 05/23/23 documented as of this encounter
--- OUTSIDE RECORDS SUMMARY | 2025-03-24 12:51 | XMS_ITS | Clinical Summary ---
Author Organization [facility] Address [address] [place] [address] Care Team Providers Care Quality Improvement Engineer Name Role Phone PersaudEstrellita Shi MORALES Primary Care Provider [phone] Allergies Active Allergy Reactions Criticality Noted Date Comments Codeine Nausea 06/01/2021 Medications acetaminophen (Tylenol) 325 MG tablet Take 2 tablets (650 mg) by mouth every 6 (six) hours. 100 tablet 4 Active melatonin 3 MG tablet Take 1 tablet (3 mg) by mouth every night. 0 4 Active Additional Information Patient taking differently: 6 mgOral Nightly, Reported on 10/04/2023 losartan (Cozaar) 25 MG tablet Take 1 tablet (25 mg) by mouth 1 (one) time each day. 30 tablet 11 4 Active Additional Information Patient not taking.Reported on 12/19/2023 apixaban (Eliquis) 5 MG tablet Take 1 tablet (5 mg) by mouth 2 (two) times a day. 180 tablet 3 4 Active rosuvastatin (Crestor) 40 MG tablet Take 1 tablet (40 mg) by mouth 1 (one) time each day. 90 tablet 3 4 Active Additional Information Patient not taking.Reported on 12/19/2023 methIMAzole (Tapazole) 5 MG tabletIndicatio ns:Graves disease Take 1 tablet (5 mg) by mouth 1 (one) time each day. DOSE REDUCTION 30 tablet 3 4 Active Additional Information Patient not taking.Reported on 12/19/2023 metoprolol succinate XL (Toprol-XL) 50 MG 24 hr tabletIndicatio ns:Tachycardia Take 1 tablet (50 mg) by mouth 1 (one) time each day. Do not crush or chew. 30 tablet 5 Active Active Problems Problem Noted Date Diagnosed Date Graves disease 08/07/2023 Tachycardia 08/07/2023 Closed right hip fracture 07/26/2023 senior living (current) use of anticoagulants 2023 Paroxysmal atrial fibrillation 06/03/2023 Cyst of pancreas 06/03/2023 History of falling 06/03/2023 Other pulmonary embolism without acute cor pulmo nale 06/03/2023 Thyrotoxicosis, unspecified without thyrotoxic crisis or storm 06/03/2023 Bilateral pulmonary embolism 05/23/2023 Other fracture of right femu r, initial encounter for closed fracture 05/22/2023 Resolved Problems Problem Noted Date Diagnosed Date Resolved Date Medication management 10/09/20232024 Leg swelling 10/09/2023 01/19/2025 Other fatigue 08/07/2023 01/19/2025 Family History Relation Name Status Comments Father Mother Social History Tobacco Use Types Packs/Day Years Used Date Smoking Tobacco: Never Smokeless Tobacco: Never Tobacco Cessation:Counseling Given: Not Answered Alcohol Use Standard Drinks/Week Comments Never 0 [...] Date Recorded Patient Health Questionnaire-2 Score 0 12/19/2023 Hunger Vital Sign Answer Date Recorded Within [...] place to sleep or slept in a nursing home (including now)? No 05/24/2023 Utilities Answer Date Recorded In the past 12 months has th e electric, gas, oil, or water company threatened to shut off services in your home? No 05/24/2023 Comments No Sex and Gender Information Value Date Recorded Sex Assigned at Not on file Legal Sex Female 8:45 PM EDT Gender Identity Not on file Sexual Orientation Not on file Last Filed Vital Signs Vital Sign Reading Time Taken Comments Blood Pressure 147/88 12/19/2023 12:04 PM EDT Provider made aware Pulse 71 12/19/2023 11:08 AM EDT Temperature 36.5 C (97.7 F) 12/19/2023 11:08 AM EDT Respiratory Rate 19 05/29/2023 11:1 4 AM EST Oxygen Saturation 96% 12/19/2023 11: 08 AM EDT Inhaled Oxygen Concentration - - Weight 82.7 kg (182 lb 5.1 oz) 12/19/2023 11:08 AM EDT Height 165.1 cm (5' 5 ) 12/19/2023 11:0 8 AM EDT Body Mass Index 30.34 12/19/2023 11:08 AM EDT Plan of Treatment Health Maintenance Due Date Last Done Comments [facility]-Bone Density Scan 1950 [facility]-Infant/Child/Adol SDOH Screenings 1950 [facility]- SDOH Screenings 06/28/1969 [facility]-Adult SDOH Screenings 06/28/1969 [facility]-DTaP,Tdap,and Td Vaccines (1 - Tdap) 06/28/1970 CT Colonography 06/28/1996 Colonoscopy 06/28/1996 FIT-DNA 06/28/1996 FIT 06/28/1996 FOBT 06/28/1996 Sigmoidoscopy 06/28/1996 [facility]-Colorectal Cancer Screening 06/28/1996 [facility]-Breast Cancer Screening 06/28/2001 [facility]-Pneumococcal Vaccine: 50+ Years (1 of 1 - PCV) 06/28/2001 [facility]-Zoster Vaccines (1 of 2) 06/28/2001 [facility]-Depression Screening 12/18/2024 12/19/2023 [facility]-DFTAC-04 Vaccine (1 - season) 2024 [facility]-Influenza Vaccine (#1) 2024 [facility]-RSV Vaccine: 60+ Years or (1 - 1-dose 75+ series) 06/28/2026 [facility]-Hepatitis C Screening Completed 05/22/2023 [facility]-Obesity Intervention Completed 024, 10/09/2023, 10/04/2023, Additional history exists HPV Vaccines Aged Out No longer eligi ble based on patient's age to complete this topic [facility]-HIB Vaccines Aged Out No longer e ligible based on patient's age to complete this topic [facility]-Hepatitis A Vaccines Aged Out No longer eligible based on patient's age to complete this topic [facility]-IPV Vaccines Aged Out No longer e ligible based on patient's age to complete this topic [facility]-Rotavirus Vaccines Aged Out No lo nger eligible based on patient's age to complete this topic Medical Devices Implanted Type Area Vehicle Service Agent Device Identifier Shelf Expiration Date Model / Serial / Lot Plate 4.5mm Lcp Crvd Cond 16h 336mm Rt - S. - [id number] Implanted:Qty: 1 on 05/23/2023 by Comfort Lawton MD at [facility] Plate Right: [employer] [facility]-[id number] 05/23/2024 [id number] / . / Screw 2.7mm Cortex Selftap 36mm - S. - [id number] Implanted:Qty: 1 on 05/23/2023 by Georges Pelaez MD at [facility] Screw Right: [employer] [place]-[id number] 05/23/2024 202.836 / . / Screw Va Lock Angle Selftap 5mm T25 65mm - S. - [id number] Implanted:Qty: 1 on 05/23/2023 by Comfort Lawton MD at [facility] Screw Right: [employer] [facility]-[id number] 05/23/2024 [id number] / . / Screw 2.7mm Cortex Selftap 38mm - S. - [id number] Implanted:Qty: 1 on 05/23/2023 by Georges Pelaez MD at [facility] Screw Right: [employer] [place]-[id number] 05/23/2024 202.838 / . / Screw 3.5mm Cortex Selftap 38mm - S. - [id number] Implanted:Qty: 1 on 05/23/2023 by Georges Pelaez MD at [facility] Screw Right: [employer] [facility]-[id number] 05/23/2024 204.838 / . / Screw 4.5mm Cortex Selftap 38mm - S. - [id number] Implanted:Qty: 1 on 05/23/2023 by Comfort Lawton MD at [facility] Screw Right: [employer] [id number] 05/23/2024 214.838 / . / Screw 4.5mm Cortex Selftap 30mm - S. - [id number] Implanted:Qty: 1 on 05/23/2023 by Comfort Lawton MD at [facility] Screw Right: [employer] [place]-[id number] 05/23/2024 214.832 / . / Screw Lock Va Slftp Olivia 5mm T25 12mm - S. - [id number] Implanted:Qty: 2 on 05/23/2023 by Comfort Lawton MD at [facility] Screw Right: [employer] [place]-[id number] 05/23/2024 42.231.012 / . / Screw Lock Va Slftp Olivia 5mm T25 18mm - S. - [id number] Implanted:Qty: 1 on 05/23/2023 by Comfort Lawton MD at [facility] Screw Right: [employer] [place]-[id number] 05/23/2024 42.231.018 / . / Screw Va Lock Angle Selftap 5mm T25 75mm - S. - [id number] Implanted:Qty: 3 on 05/23/2023 by Comfort Lawton MD at [facility] Screw Right: [employer] [place]-[id number] 05/23/2024 42.231.275 / . / Screw Va Lock Angle Selftap 5mm T25 60mm - S. - [id number] Implanted:Qty: 1 on 05/23/2023 by Comfort Lawton MD at [facility] Screw Right: [employer] [place]-[id number] 05/23/2024 42.231.260 / . / Procedures Procedure Name Priority Date/Time Associated Diagnosis Comments HEPATITIS C ANTIBODY - ED W/REFLEX TO HCV QUANT PCR STAT 05/22/2023 9:54 PM EST from Last 3 Months or Most Recently Relevant to Health Maintenance Results * Hepatitis C Antibody - ED (05/22/2023 9:54 PM EST) Hepatitis C Antibody Negative Negative 05/22/2023 10:51 PM EST [facility] Blood Venous blood specimen / Unknown Venipuncture / Unknown 05/22/2023 9:54 PM EST 05/22/2023 10:10 PM EST us Zeny Moody MD LAB BLOOD ORDERABLES Final Re sult [facility] [address] [place] [phone] from Last 3 Months or Most Recently Relevant to Health Maintenance Insurance MEDICARE Advance Directives * Full Code (Latest Code Status on File) Date Activated Date Inactivated Comments 05/23/2023 2:26 AM 06/01/2023 4:50 PM Question Answer Comments Patient has decision-making capacity? Yes Care Teams Quality Improvement Engineer Relationship Specialty Start Date End Date Estrellita Persaud APRN [address] [place] [address] PCP - General 05/23/23
--- OUTSIDE RECORDS SUMMARY | 2025-03-24 12:51 | XMS_ITS | Encounter Summary ---
Author Organization Healthcare Address [address] [place] [address] Care Team Providers Care Manager Report Name Role Phone Estrellita Persaud APRN Primary Care Provider [phone] Encounter Details Date Type Department Care Team (Late st Contact Info) Description 08/08/2023 Community [facility] Community Practice [address] [place] [address] Estrellita Persaud APRN [address] [place] [address] Social History Tobacco Use Types Packs/Day Years [...] Date Recorded Patient Health Questionnaire-2 Score 0 07/28/2023 Hunger Vital Sign Answer Date Recorded Within [...] place to sleep or slept in a assisted (including now)? No 05/24/2023 Utilities Answer Date [...] as of this encounter Plan of Treatment Not on file documented as of this encounter Visit Diagnoses Not on filedocumented in this encounter Additional Health Concerns Assessment Noted Time A fall risk assessment has been complete d for the patient 08/07/2023 1:07 PM EDT A Body Mass Index follow-up plan has been documented for the patient 08/07/2023 2:05 PM EDT documented as of this encounter Care Teams Manager Report Relationship Specialty Start Date End Date Estrellita Persaud APRN [address] [place] [address] PCP - General 05/23/23 documented as of this encounter
[2025-03-24 12:54] LABS: Hematocrit 50.8 % (37.0-47.0); Hemoglobin 15.8 g/dL (12.2-16.2); Immature Granulocytes % 0.3 %; Mean Corpuscular HGB Conc 31.1 g/dL (31.8-35.4); Mean Corpuscular Hemoglobin 28.2 pg (27.0-31.2); Mean Corpuscular Volume 90.7 fl (81-99); Nucleated Red Blood Cells % 0 %; Platelet Count 360 K/mm3 (142-424); Red Blood Count 5.60 M/mm3 (4.20-5.40); Red Cell Distribution Width-SD 46.4 fL; White Blood Count 8.9 K/mm3 (4.8-10.8)
[2025-03-24 12:56] LABS: Creatine Kinase 300 U/L (30-135); Uric Acid 3.3 mg/dl (2.5-6.2)
[2025-03-24 12:57] LABS: Alanine Aminotransferase 36 U/L (12-78); Albumin Level 4.2 g/dl (3.5-5.0); Albumin/Globulin Ratio 1.1 (1.1-1.8); Alkaline Phosphatase 113 U/L (38-126); Anion Gap 13.4 mEq/L (5-15); Aspartate Amino Transferase 50 U/L (14-36); Bilirubin,Total 0.8 mg/dl (0.2-1.3); Blood Urea Nitrogen 12 mg/dl (7-17); Calcium 9.8 mg/dl (8.4-10.2); Carbon Dioxide 30 mmol/L (22.0-30.0); Chloride 102 mmol/L (98-107); Creatinine,Serum 0.70 mg/dl (0.52-1.04); Estimated Glomerular Filt Rate 82 ml/min (>60); GFR (African American) 99 ML/MIN (>60); Globulin 3.9 g/dL (1.3-3.2); Glucose 99 mg/dl (74-100); Lipase 85 U/L (23-300); Magnesium 2.3 mg/dl (1.6-2.3); Potassium 4.4 mmoL/L (3.5-5.1); Sodium 141 mmol/L (136-145); Total Protein,Serum 8.1 g/dl (6.3-8.2)
[2025-03-24 13:00] LABS: INR 1.08 (0.9-1.1); Prothrombin Time 11.9 seconds (10.1-12.5)
[2025-03-24] MEDS: 0.9 % SODIUM CHLORIDE 50 ML VIAL 100 ML IV (13:01)
[2025-03-24] MEDS: SODIUM CHLORIDE 0.9% 10ML SYR (RAD ONLY) 10 ML IV (13:01)
[2025-03-24] MEDS: IOPAMIDOL-370 (76%);100ML BOTTLE 160 ML IV (13:01)
[2025-03-24 13:05] LABS: NT Pro Brain Natriuretic Pep. 1170 pg/mL (0-125)
[2025-03-24 13:10] LABS: Troponin I < 0.01 ng/ml (0.00-0.034)
[2025-03-24] MEDS: levETIRAcetam 4,000 MG in 0.9 % SODIUM CHLORIDE 100 ML 560 MG IV (13:17)
--- NOTE | 2025-03-24 13:19 | ECG_ITS ---
APPROVED REPORT Exam: Resting ECG HR:100 bpm ECG Measurements Heart Rate 100 AXES QRSd 94 QRS 48 QT 362 T -1 QTc 419 Conclusion ATRIAL FIBRILLATION WITH RAPID VENTRICULAR RESPONSE ST DEVIATION AND MODERATE T-WAVE ABNORMALITY, CONSIDER INFERIOR ISCHEMIA [-0.1+ mV T-WAVE IN II/aVF] ABNORMAL ECG INTERPRETATION BASED ON A DEFAULT AGE OF 40 YEARS UNCONFIRMED REPORT Electronically signed by : Jw Eaton, 03/25/2025 15:22:56
[2025-03-24 14:15] LABS: Microscopic, Urine URINE MICROSCOPIC (MICROSCOPIC)
[2025-03-24 14:19] LABS: Bilirubin,Urine Negative (Negative); Color,Urine YELLOW (Yellow); Glucose,Urine (UA) Negative (Negative); Ketones,Urine Negative (Negative); Leukocyte Esterase,Urine Negative (Negative); PH,Urine 7.0 (5.0-8.5); Protein,Urine Negative (Negative); Specific Gravity, Urine <= 1.005 (1.005-1.030); Urobilinogen,Urine 1.0 EU/dl (0.2)
--- NOTE | 2025-03-24 14:28 | SW/DCPLANNER ---
Addendum entered by [facility] 04/04/25 11:37: John Mortensen and myself did have a lengthy conversation w/ patient's regarding discharge planning. Patient has shown improvement physically and is ambulate 85 ft w/ rolling walker. Patient's has voiced that he does feel comfortable w/ taking her home at this time. Consuelo ring/ ILYA stated that she would be fine to follow up w/ patient and at home and will continue the Emergency Guardianship case. Patient's is agreeable to home health services and stated that he does have all appropriate DME at home. Patient will discharge home today w/ and I will update APS. CM will set up home heatlh services. Addendum entered by [facility] 04/04/25 09:08: Per Moody ring/ ILYA all information has been provided to Ed Juan and they are currently waiting to hear back from him regarding Emergency Guardianship. Addendum entered by [facility] 04/03/25 13:40: I have emailed APS (Grant) regarding status of Emergency Guardianship. Addendum entered by [facility] 04/01/25 15:32: Per Gaviota all paperwork was presented to Ed Juan this afternoon and he requested that APS present affidavit prior to moving forward w/ Emergency Guardianship. Gaviota stated that she will begin working on this today. Addendum entered by [facility] 04/01/25 14:05: Gaviota ring/ ILYA assisted patient's onsite w/ starting emergency Guardianship process. Paperwork will be completed on site and sent to the [employer] for approval. I have also updated Ekta ring/ [facility]. Addendum entered by [facility] 04/01/25 10:56: Gaviota CARABALLO confirmed she will be visiting the [email or web address] this AM. Addendum entered by [facility] 04/01/25 08:14: Per Fina ring/ [facility] the decision was made that if APS can receive approval from the [email or web address] for spouse to sign checks they can accept patient. Gaviota ring/ ILYA stated that she does plan to go to [facility] today. CM will continue to follow up. Fina/Ekta and Gaviota ring/ ILYA did speak regarding this plan. Addendum entered by [facility] 03/31/25 15:50: I have updated John Reyes regarding situation. Addendum entered by [facility] 03/31/25 15:36: Per Fina w/ [facility] she will need to discuss w/ staff regarding signature of payment from for private pay. I have asked Gaviota ring/ ILYA to reach out to Fina w/ [facility] regarding siutation. Addendum entered by [facility] 03/31/25 14:50: Gaviota CARABALLO did receive bank statements and forwarded them to Fina w/ [facility]. Fina stated that she will review w/ her team and contact me back. Gaviota CARABALLO stated that is next of kin and signature would be acceptable for admission to [facility] and check if [facility] accepts. Fina is aware that patient is medically stable for discharge today. Addendum entered by [facility] 03/31/25 13:09: Per Gaviota ring/ ILYA she did reach out to [employer] this AM regarding records. Gaviota is waiting to hear back from [email or web address]. Per Gaviota is allowed to signed any future documents from this point moving forward. I have updated Fina w/ [facility]. I have also updated Gaviota that patient is medically stable for discharge. Addendum entered by [facility] 03/31/25 12:31: I have emailed Leonarda ring/ ILYA regarding update. Addendum entered by [facility] 03/31/25 08:08: During my morning assessment patient is only alert and oriented to name. Patient unaware of or current location. I attempted to contact Gaviota ring/ ILYA [phone] w/ no answer at this time. Per patient is medically stable for discharge. I will continue to get in contact w/ ILYA. Addendum entered by [facility] 03/26/25 14:21: Gaviota CARABALLO as bedside to investigate. Per Gaviota patient is not competent to make her own decisions at this time. Gaviota stated that she will speak w/ her paster supervisor and further investigate. I did inform Gaviota that patient has been accepted to [facility] pending providing financial paperwork. Gaviota will begin investigation today. Addendum entered by Tonia Chemung 03/26/25 12:48: Gaviota Ashok w/ APS will be onsite this afternoon to speak w/ patient. Addendum entered by [facility] 03/25/25 14:38: [facility] ID# [id number] DOES meet criteria for investigation. Addendum entered by [facility] 03/25/25 14:22: Per patient does NOT have a POA. Addendum entered by [facility] 03/25/25 13:56: is unable to provide bank statements due to not being on 's checking account. I did contact patient's bank [employer] and they did confirm that is not listed on 's account and they could not release information. Patient is unable to sign check for private pay at any facility. Due to patient being only oriented to name and , unable to complete ADLs, not able to ambulate and not able to make decisions for herself I have contact [facility] for an APS report. CM will continue to follow up w/ patient, family, MD, [facility] and [facility]. Per MD patient is medically stable for discharge at this time. Addendum entered by [facility] 03/25/25 12:26: Fina w/ [facility] at bedside this AM to speak w/ patient and . Fina is willing to accept patient pending can provide documentation. is currently collecting paperwork. Addendum entered by [facility] 03/25/25 07:33: Per Fina w/ [facility] they are willing to accept this patient. CM will continue to follow up. Addendum entered by [facility] 03/24/25 15:41: Fina w/ [facility] is currently reviewing patient information. Original Note: I was contacted by the ER to speak w/ this patient's regarding discharge planning. Patient has a dementia diagnosis and resides at home w/ family. Patient is in ER due to falls at home. I spoke w/ at length in the ER regarding discharge planning. stated that patient will need a nursing facility for a couple days . and I discussed LTC w/ private pay vs qualifying stay in hospital vs transfer. is agreeable to placement at [facility] ([place]: no beds) under private pay from ED if needed. Patient information has been faxed to Fina ring/ [facility]. CM will continue to follow up w/ ED staff regarding imaging results.
[2025-03-24 14:41] LABS: RBC,Urine Occasional #/hpf (0-3); Squamous Epithelial Cell,Urine Occasional #/hpf (0-5); WBC,Urine Occasional #/hpf (0-3)
--- NOTE | 2025-03-24 16:03 | P.HP_ITS ---
<Statement entered by Bhupendra Landaverde MD - 03/31/25 10:48> Agree with plan of care as outlined by the REEL MAN. Given hypoxia, monitor closely for pneumothorax and early signs of pneumonia. History of Present Illness *Admission Date: 03/24/25 *Reason for visit:: frequent falls, weakness *History of present illness: Ms. Ballesteros is a 74-year-old female who presented to the emergency department today via EMS after a fall. Per patient and 's patient had fallen on 03/21/2025 and has been unable to get up since. That is approximately 3 days ago. Per he attempted to get patient up and off of the ground but was unable. Patient does endorse weakness. No other complaints at this time. Patient does have pressure wounds on her coccyx and we will scattered abrasions on her legs and arms. Patient was recently in the ER and placement at that time was offered, declined. Patient's now endorses the need for potential placement. Patient apparently also had some seizure-like activity in the emergency department, was given a loading dose of IV Keppra. Patient has no known history of seizures and does not appear to be in a postictal state at this time. Emergency room workup was significant for CK of 300, multiple CTs of head, spine, back were obtained and show no acute findings. UA is unremarkable with only trace hematuria, chest x-ray shows several lower lateral left rib fractures, no evidence of pneumothorax. Minimal lactic acidosis of 2.3, CBC unremarkable. Patient's GCS is 14, negative neurological scans?therefore low concern for actual seizure. Patient did have a CTA of abdomen/pelvis which showed nonspecific subcutaneous edema in the buttocks, on exam patient does have large stage I pressure wound. General surgery was consulted, Dr. Pepper, from the ED due to left-sided rib fractures, recommendations for admission due to failure to thrive, frequent falls, rib fractures, generalized weakness. [facility] Disclaimer: The information contained in this section may have been updated after the patient was seen, as this information can be updated by other users. Surgical History H/O: hysterectomy History of cholecystectomy Family History Other Cancer Diabetes Heart attack Hypertension Social History Smoking Status: Never smoker alcohol intake: never substance use type: denies use current occupational status: disabled Travel in the last 8 weeks?: None caffeine: Yes Have you lived/traveled outside US in past 30 days?: No Contact w/someone who lives/traveled outside US past 30 days?: No Exposure to someone with infectious disease in past 14 days?: No Do you have a fever (greater than 100.4 F or 38 C)?: No Have you tested positive for COVID-19?: No Exposed to someone with COVID-19 in past 14 days?: No Do you have a sore throat?: No Do you have a cough?: No Do you have any weakness?: No Do you have any diarrhea?: No Are you experiencing any unusual bleeding?: No Do you have any muscle aches/pain?: No Do you have any abdominal pain?: No Are you experiencing loss of taste or smell?: No Other Medical History Have you received the Flu Vaccine for this season: No Have you received the Pneumonia Vaccine: No Review of Systems Review of Systems Review of systems:: unable to obtain Meds Home Medications and Allergies Home Medications ?Medication ?Instructions ?Recorded ?Confirmed ?Type No Known Home Medications 03/25/2503/02 History New Prescriptions to Start Prescriptions: Allergies Allergy/AdvReac Type Severity Reaction Status Date / Time codeine AdvReac Nausea Verified 04/12/23 11:00 Exam Data for Last 24 hours Vital signs and Labs for Last 24 Hours: Temp Pulse Resp BP Pulse Ox O2 Del Method O2 Flow Rate 98.4 F 100 H 24 151/94 H 99 Nasal Cannula 2 03/24/25 12:28 03/24/25 13:22 03/24/25 13:00 03/24/25 13:22 03/24/25 13:22 03/24/25 13:22 03/24/25 13:22 Laboratory Results - last 24 hr 03/24/25 12:07: WBC 8.9, RBC 5.60 H, Hgb 15.8, Hct 50.8 H, MCV 90.7, MCH 28.2, MCHC 31.1 L, RDW 13.9, Plt Count 360, MPV 10.3, Neut % (Auto) 80.5 H, Lymph % (Auto) 11.7, Bel[place] % (Auto) 5.4, Eos % (Auto) 1.5, Baso % (Auto) 0.6, Neut # (Auto) 7.2, Lymph # (Auto) 1.0, [place]ami # (Auto) 0.5, Eos # (Auto) 0.1, Baso # (Auto) 0.1, PT 11.9, INR 1.08, Sodium 141, Potassium 4.4, Chloride 102, Carbon Dioxide 30, Anion Gap 13.4, BUN 12, Creatinine 0.70, Estimated GFR 82, Est GFR ( Amer) 99, Glucose 99, Uric Acid 3.3, Calcium 9.8, Magnesium 2.3, Total Bilirubin 0.8, AST 50 H, ALT 36, Alkaline Phosphatase 113, Total Creatine Kinase 300 H, Troponin I < 0.01, NT-Pro-B Natriuret Pep 1170 H, Total Protein 8.1, Albumin 4.2, Globulin 3.9 H, Albumin/Globulin Ratio 1.1, Lipase 85 03/24/25 14:09: Urine Color Yellow, Urine Appearance Clear, Urine pH 7.0, Ur Specific [place] <= 1.005, Urine Protein Negative, Urine Glucose (UA) Negative, Urine Ketones Negative, Urine Blood Trace-l, Urine Nitrate Negative, Urine Bilirubin Negative, Urine Urobilinogen 1.0, Ur Leukocyte Esterase Negative, Urine RBC Occasional, Urine WBC Occasional, Ur Squamous Epith Cells Occasional 03/24/25 14:16: Lactate 2.3 H I & O for Last 24 hours: Intake & Output 03/21/25 03/22/25 03/23/25 03/24/25 23:59 23:59 23:59 23:59 Intake Total 140 / 140 Balance 140 / 140 Weight 70.307 kg Constitutional Constitutional: no acute distress, average body habitus, chronically ill appearing, cooperative and somnolent *Routine HEENT Exam Head: Present normocephalic Eye: Present proptosis (Right eye); Absent nystagmus ENT: Present mucous membranes moist *Routine Neck Exam Neck: Present supple; Absent lymphadenopathy *Routine Respiratory Exam Respiratory: Present CTA bilaterally; Absent wheezes, crackles or distant breath sounds *Routine Cardiovascular Exam Cardiovascular: Present RRR *Routine Abdominal Exam Abdominal: Present soft and normoactive bowel sounds; Absent tenderness or distended *Routine Rectal Exam Rectal:: deferred *Routine Genitalia Exam Genitalia:: normal female *Routine Extremities Exam Extremities: Absent cyanosis, edema or pallor *Routine Skin Exam Skin: Present intact and dry Comments: Scattered abrasions and bruising *Routine Neurological Exam Neurological: Absent vision grossly intact Comments: Oriented to self Assessment and Plan *Assessment and plan (1) Generalized weakness: Status: Acute Category: Medical Code(s): R53.1 - Weakness (2) Seizure-like activity: Status: Acute Category: Medical Code(s): R29.818 - Other symptoms and signs involving the nervous system (3) Adult failure to thrive: Status: Acute Category: Medical Code(s): R62.7 - Adult failure to thrive (4) Multiple rib fractures: Status: Acute Category: Medical Code(s): S22.49XA - Multiple fractures of ribs, unspecified side, initial encounter for closed fracture (5) Frequent falls: Status: Acute Category: Medical Code(s): R29.6 - Repeated falls (6) Decubitus ulcer of sacral area: Status: Acute Category: Medical Code(s): L89.159 - Pressure ulcer of sacral region, unspecified stage Plan Ms. Ballesteros is a 74-year-old female who presented to the emergency department today via EMS after a fall. Per patient and 's patient had fallen on 03/21/2025 and has been unable to get up since. That is approximately 3 days ago. Per he attempted to get patient up and off of the ground but was unable. Patient does endorse weakness. No other complaints at this time. Patient does have pressure wounds on her coccyx and we will scattered abrasions on her legs and arms. Patient was recently in the ER and placement at that time was offered, declined. Patient's now endorses the need for potential placement. Patient apparently also had some seizure-like activity in the emergency department, was given a loading dose of IV Keppra. Patient has no known history of seizures and does not appear to be in a postictal state at this time. Emergency room workup was significant for CK of 300, multiple CTs of head, spine, back were obtained and show no acute findings. UA is unremarkable with only trace hematuria, chest x-ray shows several lower lateral left rib fractures, no evidence of pneumothorax. Minimal lactic acidosis of 2.3, CBC unremarkable. Patient's GCS is 14, negative neurological scans?therefore low concern for actual seizure. Patient did have a CTA of abdomen/pelvis which showed nonspecific subcutaneous edema in the buttocks, on exam patient does have large stage I pressure wound. Patient's vitals remained hemodynamically stable in the ED. general surgery was consulted, Dr. Pepper, from the ED due to left- sided rib fractures, recommendations for admission due to failure to thrive, frequent falls, rib fractures, generalized weakness. Hospital medicine was consulted, I agreed to admit the patient. Plan of care as follows: #Generalized weakness #Frequent falls #Failure to thrive #Decubitus ulcer of sacrum, unstageable, present on admission ? Patient on exam notable for generalized weakness, PT/OT consulted for further evaluation of patient's needs. Patient and spouse are interested in possible rehab/placement. Patient is arousable to verbal stimuli but appears very lethargic. Patient's at bedside states she has progressively gotten more weak over the past 2 weeks. He does endorse that she has been on the ground since Monday but has been responsive and interactive. Patient has notable wound on her coccyx, unstageable. Wound care consulted. Patient denies pain. Lungs CTA. Per patient spouse she is legally blind. ? Patient is oriented to self but unable to tell me where she is or situation. States she is in her bathroom at home. Unable to tell me time of day or year. ? Patient currently has 2 L nasal cannula, weaning as tolerated for O2 saturation greater than 90%. Patient does not appear short of breath. continuous pulse ox and telemetry in place. ? CBC, CMP, TSH, A1c ordered for the a.m. #Seizure-like activity ? Per ER staff patient had what appeared to be seizure-like activity. Patient does not appear to be postictal. Patient received IV bolus Keppra in the ED, will continue Keppra 500 twice daily at this time. Seizure precautions in place. #OAB ?Continue home medication for overactive bladder when reconciled Full code VTE?Lovenox Up with assistance Regular diet
--- NOTE | 2025-03-24 16:17 | PC.NURSE ---
Patient resting and being transported to the floor. Family with the patient
[2025-03-24 16:26] LABS: Troponin I < 0.01 ng/ml (0.00-0.034)
--- NOTE | 2025-03-24 16:26 | PC.NURSE ---
arrived by stretcher from ED
[2025-03-24 17:04] LABS: Hemoglobin A1C 5.8 % (4.0-6.0)
[2025-03-24 17:19] LABS: Thyroid Stimulating Hormone < 0.02 uIU/mL (0.465-4.68)
[2025-03-24 18:27] LABS: Reflex Lactic Add Lactic Reflex
--- NOTE | 2025-03-24 19:08 | PC.NURSE ---
NPO order placed, patient is confused and unable to tolerate regular diet. Pt noted to cough while trying to eat and drink. pt oral cavity suctioned and visually inspected. lung sounds clear but diminished. requiring 2lnc for o2 support.
[2025-03-24 19:32] LABS: Lactic Acid Follow Up (RFLX 1) 1.2 mmol/L (0.7-2.1)
[2025-03-24 19:59] LABS: Troponin I < 0.01 ng/ml (0.00-0.034)
[2025-03-24] MEDS: levETIRAcetam 500 MG in 0.9 % SODIUM CHLORIDE 100 ML 210 MG IV (21:19)
[2025-03-25] VITALS: BP 110/61; PULSE 93; PULSE 95; RESP 14; TEMP 36.8; O2SAT 97
[2025-03-25 04:00] VITALS: BP 105/51; PULSE 105; PULSE 95; RESP 12; TEMP 36.6; O2SAT 98; BMI 28.8
--- NOTE | 2025-03-25 04:06 | PC.NURSE ---
Patient only alert to name, withdraws to pain, patient has no verbally spoken this shift. Turned Q2, patient will moan on turn. Room air. Afib on tele. Purewick in place. NPO due to patient not following commands, did not give patient water for PO medications, contacted [facility] about concern for PO medications, switched to IV per jun. Call light in reach. Bed alarm on.
[2025-03-25 06:17] LABS: Hematocrit 45.9 % (37.0-47.0); Immature Granulocytes % 0.4 %; Mean Corpuscular HGB Conc 30.7 g/dL (31.8-35.4); Mean Corpuscular Hemoglobin 28.4 pg (27.0-31.2); Mean Corpuscular Volume 92.4 fl (81-99); Nucleated Red Blood Cells % 0 %; Platelet Count 301 K/mm3 (142-424); Red Blood Count 4.97 M/mm3 (4.20-5.40); Red Cell Distribution Width-SD 47.8 fL; White Blood Count 7.1 K/mm3 (4.8-10.8)
[2025-03-25 06:19] LABS: Alanine Aminotransferase 29 U/L (12-78); Albumin Level 3.5 g/dl (3.5-5.0); Albumin/Globulin Ratio 1.1 (1.1-1.8); Alkaline Phosphatase 97 U/L (38-126); Anion Gap 10.5 mEq/L (5-15); Aspartate Amino Transferase 39 U/L (14-36); Bilirubin,Total 0.4 mg/dl (0.2-1.3); Blood Urea Nitrogen 13 mg/dl (7-17); Calcium 9.2 mg/dl (8.4-10.2); Carbon Dioxide 27 mmol/L (22.0-30.0); Chloride 105 mmol/L (98-107); Cholesterol 185 mg/dl (140-200); Creatinine Clearance Estimated 64 mL/min (50-200); Creatinine,Serum 0.80 mg/dl (0.52-1.04); Estimated Glomerular Filt Rate 70 ml/min (>60); GFR (African American) 85 ML/MIN (>60); Globulin 3.2 g/dL (1.3-3.2); Glucose 81 mg/dl (74-100); HDL Cholesterol 36 mg/dl (40-60); Magnesium 2.3 mg/dl (1.6-2.3); Potassium 3.5 mmoL/L (3.5-5.1); Sodium 139 mmol/L (136-145); Total Protein,Serum 6.7 g/dl (6.3-8.2); Triglycerides 90 mg/dl (30-150)
[2025-03-25 06:26] LABS: Hemoglobin 14.3 g/dL (12.2-16.2)
[2025-03-25 08:00] VITALS: BP 117/54; PULSE 100; RESP 16; TEMP 36.6; O2SAT 92
[2025-03-25] MEDS: levETIRAcetam 500 MG in 0.9 % SODIUM CHLORIDE 100 ML 210 MG IV ×2 (08:11→20:40)
--- NOTE | 2025-03-25 09:25 | HMH.PTEV ---
Physical Therapy Evaluation Rehab PT IP Evaluation Start: 03/24/25 15:56 Freq: ONCE Status: Active Protocol: Document 03/25/25 09:20 GILDARDO (Rec: 03/25/25 09:25 GILDARDO [id number]) Subjective/History History History Per H&P: Ms. Ballesteros is a 74-year-old female who presented to the emergency department today via EMS after a fall. Per patient and 's patient had fallen on 03/21/2025 and has been unable to get up since. That is approximately 3 days ago. Per he attempted to get patient up and off of the ground but was unable. Patient does endorse weakness. No other complaints at this time. Patient does have pressure wounds on her coccyx and we will scattered abrasions on her legs and arms. Patient was recently in the ER and placement at that time was offered, declined. Patient's now endorses the need for potential placement. Patient apparently also had some seizure-like activity in the emergency department, was given a loading dose of IV Keppra. Patient has no known history of seizures and does not appear to be in a postictal state at this time. Emergency room workup was significant for CK of 300, multiple CTs of head, spine, back were obtained and show no acute findings. UA is unremarkable with only trace hematuria, chest x-ray shows several lower lateral left rib fractures, no evidence of pneumothorax . Minimal lactic acidosis of 2.3, CBC unremarkable. Patient's GCS is 14, negative neurological scans? therefore low concern for actual seizure. Patient did have a CTA of abdomen/pelvis which showed nonspecific subcutaneous edema in the buttocks, on exam patient does have large stage I pressure wound. General surgery was consulted, Dr. Pepper, from the ED due to left-sided rib fractures, recommendations for admission due to failure to thrive, frequent falls, rib fractures, generalized weakness. Subjective Subjective Pt reports she lives with her parents. Pt reports she is normally IND with mobility. Pt is a questionable historian. Confirm social hx with CM. [facility] How much help from another person do you currently need... Turning from your A lot back to your side while in a flat bed without using bedrails? Moving from lying on A lot back to sitting on the side of a flat bed without using bedrails? Moving to and from a A lot bed to a chair ( including a wheelchair)? Standing up from a A lot chair using your arms? (e.g., wheelchair, bedside chair) Walking in hospital A lot room? Climbing 3-5 steps A lot with a railing? Mobility Score 12 Mobility Level [facility] Mobility 4 Move to chair/commode Mobility Calculator Rehab PT IP Eval Objective Appearance Patient Behavior Appropriate,Cooperative Patient Orientation Person Difficulty following mild instructions Speech Pattern Clear Ambulation Patient Able to No Ambulate Balance Ability to Arise Able, uses arms to help Sitting Balance Leans or slides in chair Standing Balance Unsteady Transfers Bed Transfer Ability Maximum x 2 (75% assist) Sit to Stand Bed Moderate x 2 (50% assist) Transfer Ability Rehab PT IP prob,goals,plan Problems Date of Evaluation: 03/25/25 PT IP Problems Bed Mobility,Transfers,Gait,Balance,Self care,Safety Rehab Potential Rehab Potential Good Plan PT Intervention Plan Bed Mobility,Transfers,Gait,Balance,Self care,Safety, Therapeutic Exercise Other Intervention 1-2 times Plan PT Plan Frequency Daily Duration LOS Discharge Goals Bed Transfer Ability Moderate x 1 (50% assist) Sit to Stand Chair Minimal x 1 (25% assist) Transfer Ability Discharge Plan PT Discharge Plan Pt presents below her baseline in functional mobility. Pt is a high fall risk and is most appropriate for skilled inpatient rehab placement at this time. Pt would benefit from skilled PT while at [facility] to address deficits and prevent further functional decline . Eval Complexity Eval Charge Codes 77634 - Moderate Complexity PHYSICIAN CERTIFICATION: I certify the specified therapy services for September are required, authorized, and reviewed every 30 days.
--- NOTE | 2025-03-25 09:42 | HMH.OTEV ---
OT Evaluation Rehab OT IP Evaluation Start: 03/24/25 15:56 Freq: ONCE Status: Active Protocol: Document 03/25/25 09:38 ARSWANAKENA (Rec: 03/25/25 09:42 [facility] [id number]) Rehab OT IP Assessment Subjective History Pt oriented to self. Pt admitted on 03/24/25 due to failure to thrive and rib fx. Pt normally lives at home with her . History and physical: Per H&P: Ms. Ballesteros is a 74-year-old female who presented to the emergency department today via EMS after a fall. Per patient and 's patient had fallen on 03/21/2025 and has been unable to get up since. That is approximately 3 days ago. Per he attempted to get patient up and off of the ground but was unable. Patient does endorse weakness. No other complaints at this time. Patient does have pressure wounds on her coccyx and we will scattered abrasions on her legs and arms. Patient was recently in the ER and placement at that time was offered, declined. Patient's now endorses the need for potential placement. Patient apparently also had some seizure-like activity in the emergency department, was given a loading dose of IV Keppra. Patient has no known history of seizures and does not appear to be in a postictal state at this time. Emergency room workup was significant for CK of 300, multiple CTs of head, spine, back were obtained and show no acute findings. UA is unremarkable with only trace hematuria, chest x-ray shows several lower lateral left rib fractures, no evidence of pneumothorax . Minimal lactic acidosis of 2.3, CBC unremarkable. Patient's GCS is 14, negative neurological scans? therefore low concern for actual seizure. Patient did have a CTA of abdomen/pelvis which showed nonspecific subcutaneous edema in the buttocks, on exam patient does have large stage I pressure wound. General surgery was consulted, Dr. Pepper, from the ED due to left-sided rib fractures, recommendations for admission due to failure to thrive, frequent falls, rib fractures, generalized weakness. Subjective Therapist unclear about pt's previous level of functioning due to pt being a poor historian. Pt claims she was independent with ADLs and functional transfers. However, pt also reports she still lives with her parents. Due to ongoing confusion information provided by patient may not be trustworthy. Objective Patient Orientation Person,Birthday Right Upper Min Limitation <25% Extremity Gross ROM Left Upper Extremity Min Limitation <25% Gross ROM Shoulder ROM Muscle Weakness Limitations Elbow ROM Muscle Weakness Limitations Wrist Limitations of Muscle Weakness Range of Motion Bed Mobility bed mobility-scooting,bed mobility - supine/sit,bed mobility - rolling Assist Level Maximum x 2 (75% assist) Transfer Training Sit/Stand Transfer Assist Level Moderate x 2 (50% assist) Rehab OT IP prob,goals,plan Problems Date of Evaluation: 03/25/25 OT IP Problems Bed Mobility,Transfers,Balance,Self care,Safety Rehab Potential Rehab Potential Good Equipment Needs Assistive Devices Rolling / Wheeled Walker Plan OT intervention Plan Bed Mobility,Transfers,Balance,Self care,Safety, Therapeutic Exercise OT Plan Frequency Daily Duration LOS Discharge Goals Bed Mobility Ability Assistance x1 Sit to Stand Chair Moderate x 1 (50% assist) Transfer Ability Chair Transfer Moderate x 1 (50% assist) Ability Chair Transfer Sit to/from Ambulatory Technique Chair Transfer Rolling Walker Assistive Devices Feeding Ability Assist with Tray Set Up Lower Body Dressing Moderate Assistance Ability Upper Body Dressing Minimal Assistance Ability Performing Toilet Moderate Assistance Hygiene Ability Overall Commode/ Moderate Assistance Toilet Transfer Ability Commode/Toilet Sit to/from Ambulatory Transfer Technique Discharge Plan OT Discharge Plan Pt will continue to be seen for OT services while at [facility]. At this time, pt would benefit most from short term rehab at [facility] following discharge. Continued skilled therapy is important in order for patient to improve strength, safety, endurance, ADL independence, and functional transfers to reach PLOF. Eval Complexity Eval Charge Codes 38620 - Moderate Complexity PHYSICIAN CERTIFICATION: I certify the specified therapy services for September are required, authorized, and reviewed every 30 days.
--- NOTE | 2025-03-25 11:02 | HMH.PTWOUND ---
Rehab Wound Evaluation Rehab IP Wound Evaluation Start: 03/24/25 15:56 Freq: ONCE Status: Active Protocol: Document 03/25/25 10:57 DEBBIE (Rec: 03/25/25 11:02 PHORAPHAEL [id number]) Rehab PT Wound Assessment Subjective Subjective 74-year-old female who presented to the emergency department today via EMS after a fall. Per patient and 's patient had fallen on 03/21/2025 and has been unable to get up since. That is approximately 3 days ago. Per he attempted to get patient up and off of the ground but was unable. Patient does endorse weakness. No other complaints at this time. Patient does have pressure wounds on her coccyx and we will scattered abrasions on her legs and arms. Patient was recently in the ER and placement at that time was offered, declined. Patient's now endorses the need for potential placement. Patient apparently also had some seizure-like activity in the emergency department, was given a loading dose of IV Keppra. Patient has no known history of seizures and does not appear to be in a postictal state at this time. Pt presents with multiple small wounds on her buttocks and hips and a large wound on her sacrum. Wound Sacrum Wound Type Pressure Ulcer Is This a Chronic Yes Wound Wound Staging Unstageable Query Text:Stage I - Unbroken, red skin, no blanching. Stage II - Skin broken, superficial skin loss involving epidermis alone or also dermis. Partial loss of skin layers. Stage III - Pressure area involves epidermis, dermis and subcutaneous tissue, full thickness skin loss. Stage IV - Pressure area involves epidermis, subcutaneous tissue, bone and other supportive tissue. Full thickness skin loss with extensive destruction of underlying tissue and structures. Wound Length (cm) 4.2 Wound Width (cm) 4.6 Wound Depth (cm) 0.1 Wound Bed Appearance Yellow,Slough,Eschar,Necrotic Percentage of Slough 50 (%) Percentage of Eschar 50 (Black) (%) Wound Margins Well Defined Description Surrounding Tissue Bright Red Appearance Wound Drainage Purulent Description Drainage Odor Slight Odor Wound Topical Saline Irrigant Solution/Irrigant Primary Dressing Composite Comment bordered foam Dressing Change Tolerated Well Patient Tolerance Plan/Recommendation Comment Nursing staff to continue current dressings for all wounds and follow all protocols for appropriate pressure relief. Sacral wound will likely continue to demarcate over time and may need debridement at a later date. Eval Complexity Eval Charge Codes 18314 - High Complexity George-Juan Wound Assessment Tool Assessment Wound size 3= Length x Width 16.1--<36 sq cm Wound depth 4=Obscured by necrosis Wound edges 2=Distinct, outline clearly visible, attached, even with wound base Wound undermining 1=None present Necrotic tissue type 4=Adherent, soft, black eschar Necrotic tissue 5=75% to 100% of wound covered amount Exudate type 5=Purulent: thin or thick, opaque, hernandez/yellow, withour without odor Exudate amount 4=Moderate Skin color 2=Bright red &/or blanches to touch surrounding wound Peripheral tissue 1=No swelling or edema edema Peripheral tissue 1=None present induration Granulation tissue 5=No granulation tissue present Epithelialization 5= < 25% wound covered Wound assessment 42 total score PHYSICIAN CERTIFICATION: I certify the specified therapy services for September are required, authorized, and reviewed every 30 days.
[2025-03-25 11:51] VITALS: BMI 28.8
[2025-03-25 12:00] VITALS: PULSE 100
--- NOTE | 2025-03-25 14:25 | P.PN_ITS ---
<Statement entered by Jw Olvera MD - 03/25/25 15:10> Rounded on patient after nurse practitioner. Personally examined and interviewed patient. Agree with exam findings and care plan as documented. Subjective *Date: 03/25/25 *Time: 14:25 Interval history: Patient doing well this morning, knows she is in the hospital. Unable to tell me the year but is alert to situation and self. Patient is awaiting placement at this time. and patient agreeable. PT evaluated and recommends rehab facility. Medical Exam Vital signs and Labs for Last 24 Hours: Vital Signs Temp Pulse Pulse Resp BP BP Pulse Ox 03/25/25 12:00 100 H 03/25/25 08:52 03/25/25 08:00 97.8 F 100 H 16 117/54 L 92 L 03/25/25 08:00 100 H 03/25/25 07:45 03/25/25 06:42 03/25/25 04:59 03/25/25 04:00 97.9 F 105 H 12 105/51 L 98 03/25/25 04:00 95 H 03/25/25 03:00 03/25/25 01:00 03/25/25 00:00 95 H 03/25/25 00:00 98.2 F 93 H 14 110/61 97 03/24/25 22:59 03/24/25 20:57 03/24/25 20:00 90 03/24/25 20:00 102 H 03/24/25 20:00 98.8 F 102 H 14 136/81 95 03/24/25 18:31 03/24/25 17:00 03/24/25 16:55 110 H 03/24/25 16:50 98.9 F 98 H 20 148/82 H 96 03/24/25 16:20 98.4 F 100 H 24 151/94 H 03/24/25 16:04 O2 Del Method O2 Flow Rate 03/25/25 12:00 03/25/25 08:52 Room Air 03/25/25 08:00 Room Air 03/25/25 08:00 03/25/25 07:45 Room Air 03/25/25 06:42 Room Air 03/25/25 04:59 Room Air 03/25/25 04:00 Room Air 03/25/25 04:00 03/25/25 03:00 Room Air 03/25/25 01:00 Room Air 03/25/25 00:00 03/25/25 00:00 Room Air 03/24/25 22:59 Room Air 03/24/25 20:57 Room Air 03/24/25 20:00 03/24/25 20:00 Room Air 03/24/25 20:00 Nasal Cannula 1 03/24/25 18:31 Nasal Cannula 2 03/24/25 17:00 Nasal Cannula 2 03/24/25 16:55 03/24/25 16:50 Nasal Cannula 1 03/24/25 16:20 Nasal Cannula 2 03/24/25 16:04 Room Air Intake and Output 03/24/25 03/25/25 03/25/25 23:59 07:59 15:59 Intake Total 105 / 245 0 / 785 785 / 785 Output Total 600 / 600 0 / 600 Balance 105 / 245 -600 / 185 785 / 185 Intake: Intake, Oral Amount 0 / 680 680 / 680 Intake, Total IV Amount 105 / 245 105 / 105 levETIRAcetam 500 mg In 0.9 % 105 / 105 Sodium Chloride 100 ml @ 210 mls/hr IV Q12H [facility] Rx#:[id number] levETIRAcetam 500 mg In 0.9 % 105 / 105 Sodium Chloride 100 ml @ 210 mls/hr IV Q12H [facility] Rx#: [id number] Output: Output, Urine Amount 600 / 600 0 / 600 Other: Number of Unmeasured Voids 0 1 Number of Bowel Movements 1 Weight 81.363 kg 81.363 kg Patient Weight 03/25/25 23:59 Weight 81.363 kg Laboratory Results - last 24 hr 03/24/25 12:07: PT 11.9, INR 1.08, Hemoglobin A1c 5.8 03/24/25 14:09: Urine Color Yellow, Urine Appearance Clear, Urine pH 7.0, Ur Specific [place] <= 1.005, Urine Protein Negative, Urine Glucose (UA) Negative, Urine Ketones Negative, Urine Blood Trace-l, Urine Nitrate Negative, Urine Bilirubin Negative, Urine Urobilinogen 1.0, Ur Leukocyte Esterase Negative, Urine RBC Occasional, Urine WBC Occasional, Ur Squamous Epith Cells Occasional 03/24/25 14:16: Lactate 2.3 H 03/24/25 15:51: Troponin I < 0.01, TSH < 0.02 L 03/24/25 19:10: Lactate 1.2, Troponin I < 0.01 03/25/25 05:17: WBC 7.1, RBC 4.97, Hgb 14.3, Hct 45.9, MCV 92.4, MCH 28.4, MCHC 30.7 L, RDW 13.9, Plt Count 301, MPV 10.5 H, Neut % (Auto) 75.0, Lymph % (Auto) 12.3, [place] % (Auto) 7.0, Eos % (Auto) 4.6, Baso % (Auto) 0.7, Neut # (Auto) 5.4, Lymph # (Auto) 0.9, [place] # (Auto) 0.5, Eos # (Auto) 0.3, Baso # (Auto) 0.1, Sodium 139, Potassium 3.5 D, Chloride 105, Carbon Dioxide 27, Anion Gap 10.5, BUN 13, Creatinine 0.80, Estimated Creat Clear 64, Estimated GFR 70, Est GFR ( Amer) 85, Glucose 81, Calcium 9.2, Magnesium 2.3, Total Bilirubin 0.4, AST 39 H, ALT 29, Alkaline Phosphatase 97, Total Protein 6.7, Albumin 3.5 D, Globulin 3.2, Albumin/Globulin Ratio 1.1, Triglycerides 90, Cholesterol 185, LDL Cholesterol Direct 127.93, VLDL Cholesterol 18, HDL Cholesterol 36 L, Cholesterol/HDL Ratio 5.1 H I & O for Labs for Last 24 Hours: Intake & Output 03/22/25 03/23/25 03/24/25 03/25/25 23:59 23:59 23:59 23:59 Intake Total 245 / 245 785 / 785 Output Total 600 / 600 Balance 245 / 245 185 / 185 Weight 70.307 kg 81.363 kg Constitutional: Present no acute distress, chronically ill appearing and cooperative Head: Present atraumatic Eyes: Present other (Legally blind, ptosis of right eye) Neck: Present normal inspection; Absent lymphadenopathy Respiratory: Present CTA bilaterally and normal respiratory effort; Absent wheezes or crackles Cardiac: Present Reg Rate and Rhythm and No Murmur GI: Present soft and normal bowel sounds; Absent distention or tenderness Rectal (female): Present deferred (female): Present deferred Extremities: Present normal inspection and full ROM; Absent tenderness or edema Skin: Present intact; Absent erythema Comment:: Decubitus wound on sacrum Neuro: Present Weakness, Grossly Intact and moves all extremities Comment:: Alert to self and situation Assessment and Plan *Assessment and plan (1) Generalized weakness: Status: Acute Category: Medical Code(s): R53.1 - Weakness (2) Seizure-like activity: Status: Acute Category: Medical Code(s): R29.818 - Other symptoms and signs involving the nervous system (3) Adult failure to thrive: Status: Acute Category: Medical Code(s): R62.7 - Adult failure to thrive (4) Multiple rib fractures: Status: Acute Category: Medical Code(s): S22.49XA - Multiple fractures of ribs, unspecified side, initial encounter for closed fracture (5) Frequent falls: Status: Acute Category: Medical Code(s): R29.6 - Repeated falls (6) Decubitus ulcer of sacral area: Status: Acute Category: Medical Code(s): L89.159 - Pressure ulcer of sacral region, unspecified stage Plan Ms. Ballesteros is a 74-year-old female who presented to the emergency department yesterday via EMS after a fall. Per patient and 's patient had fallen on 03/21/2025 and has been unable to get up since. That is approximately 3 days ago. Per he attempted to get patient up and off of the ground but was unable. Patient does endorse weakness. No other complaints at this time. Patient does have pressure wounds on her coccyx and we will scattered abrasions on her legs and arms. Patient was recently in the ER and placement at that time was offered, declined. Patient's now endorses the need for potential placement. Patient apparently also had some seizure-like activity in the emergency department, was given a loading dose of IV Keppra. Patient has no known history of seizures and does not appear to be in a postictal state at this time. Emergency room workup was significant for CK of 300, multiple CTs of head, spine, back were obtained and show no acute findings. UA is unremarkable with only trace hematuria, chest x-ray shows several lower lateral left rib fractures, no evidence of pneumothorax. Minimal lactic acidosis of 2.3, CBC unremarkable. Patient's GCS is 14, negative neurological scans?therefore low concern for actual seizure. Patient did have a CTA of abdomen/pelvis which showed nonspecific subcutaneous edema in the buttocks, on exam patient does have large stage I pressure wound. Patient's vitals remained hemodynamically stable in the ED. general surgery was consulted, Dr. Pepper, from the ED due to left- sided rib fractures, recommendations for admission due to failure to thrive, frequent falls, rib fractures, generalized weakness. Hospital medicine was consulted, I agreed to admit the patient. Plan of care as follows: Patient's went to [facility] for private pay placement. It was brought to our attention patient's is not on her account and she is unable to sign for self. At this time she does not have a POA. Tonia Simental, social work contacted APS for further investigation. At this time patient requires hospitalization due to weakness and need for placement. #Generalized weakness #Frequent falls #Failure to thrive #Decubitus ulcer of sacrum, unstageable, present on admission ? Patient on exam notable for generalized weakness, PT/OT consulted for further evaluation of patient's needs. Evaluation states recommendation of SNF facility following discharge for continued skilled therapy. Patient and spouse are interested in possible rehab/placement. After speaking with patient's he states that she does have a known history of dementia and is intermittently confused. She is able to tell me where she is and who she is but unable to tell me current year or current details. Patient's at bedside states she has progressively gotten more weak over the past 2 weeks. He does endorse that she has been on the ground since Monday but has been responsive and interactive. Patient has notable wound on her coccyx, unstageable. Wound care consulted. Recommendations to continue with Mepilex pressure-relief dressings. Frequent turns. Patient denies pain. Lungs CTA. Per patient spouse she is legally blind, ptosis noted of right eye (POA). ? Initially on admission patient was placed on 2 L for O2 saturation less than 90%, patient was weaned to room air today?O2 saturation 92%. Patient does not appear short of breath. continuous pulse ox and telemetry in place. ? CBC unremarkable, electrolytes within normal range, kidney function within normal range. TSH less than 0.02 this appears to be a chronic issue for the patient. #Seizure-like activity ? Per ER staff patient had what appeared to be seizure-like activity. Patient does not appear to be postictal. Patient received IV bolus Keppra in the ED, will continue Keppra 500 twice daily at this time. Seizure precautions in place. Full code VTE?Lovenox Up with assistance Regular diet
[2025-03-25 16:00] VITALS: BP 119/46; PULSE 100; PULSE 120; RESP 16; TEMP 36.8; O2SAT 95
--- NOTE | 2025-03-25 18:16 | PC.NURSE ---
pt resting in bed call light in reach
[2025-03-25 20:00] VITALS: BP 119/62; PULSE 105; RESP 16; TEMP 37.4; O2SAT 92
[2025-03-26 04:00] VITALS: BP 124/58; PULSE 92; RESP 16; TEMP 36.8; O2SAT 91; BMI 28.6
--- NOTE | 2025-03-26 05:36 | PC.NURSE ---
Patient alert to self only, is not sure where she is or the year. Patient pulled out 2 IVs this shift, replaced both times. Patient continued to pull purewick out, patient received bath this shift. Wounds noted with patchs in place. Room air. No complaints from patient this shift. Call light in reach.
[2025-03-26 06:01] LABS: Hematocrit 42.3 % (37.0-47.0); Hemoglobin 13.2 g/dL (12.2-16.2); Immature Granulocytes % 0.2 %; Mean Corpuscular HGB Conc 31.2 g/dL (31.8-35.4); Mean Corpuscular Hemoglobin 28.3 pg (27.0-31.2); Mean Corpuscular Volume 90.6 fl (81-99); Nucleated Red Blood Cells % 0 %; Platelet Count 313 K/mm3 (142-424); Red Blood Count 4.67 M/mm3 (4.20-5.40); Red Cell Distribution Width-SD 45.9 fL; White Blood Count 6.4 K/mm3 (4.8-10.8)
[2025-03-26 06:13] LABS: Alanine Aminotransferase 22 U/L (12-78); Albumin Level 3.2 g/dl (3.5-5.0); Albumin/Globulin Ratio 1.1 (1.1-1.8); Alkaline Phosphatase 93 U/L (38-126); Anion Gap 9.2 mEq/L (5-15); Aspartate Amino Transferase 33 U/L (14-36); Bilirubin,Total 0.3 mg/dl (0.2-1.3); Blood Urea Nitrogen 13 mg/dl (7-17); Calcium 8.6 mg/dl (8.4-10.2); Carbon Dioxide 25 mmol/L (22.0-30.0); Chloride 107 mmol/L (98-107); Creatinine Clearance Estimated 64 mL/min (50-200); Creatinine,Serum 0.70 mg/dl (0.52-1.04); Estimated Glomerular Filt Rate 82 ml/min (>60); GFR (African American) 99 ML/MIN (>60); Globulin 3.0 g/dL (1.3-3.2); Glucose 92 mg/dl (74-100); Potassium 3.2 mmoL/L (3.5-5.1); Sodium 138 mmol/L (136-145); Total Protein,Serum 6.2 g/dl (6.3-8.2)
[2025-03-26 07:47] VITALS: BP 122/96; PULSE 98; RESP 16; TEMP 36.6; O2SAT 96
--- NOTE | 2025-03-26 08:09 | PC.NURSE ---
per car shifter pt pulled 3 IV's out. Susanna Mortensen APRN stated pt did not need IV replaced at this time. IV keppra to be switched to PO.
[2025-03-26] MEDS: POTASSIUM CHLORIDE 20MEQ TAB 40 MEQ PO ×2 (09:11→11:43)
--- NOTE | 2025-03-26 14:07 | P.PN_ITS ---
<Statement entered by Jw Olvera MD - 03/26/25 15:18> Rounded on patient after nurse practitioner. Personally examined and interviewed patient. Agree with exam findings and care plan as documented. Subjective *Date: 03/26/25 *Time: 14:07 Interval history: Patient has done well today, up to chair at this time. Patient is alert to self but is not alert to situation, place, year. Adult Protective Services at bedside to evaluate mental competency and potential need for state guardian. Patient does have bed at [facility] and rehab but at this time unable to make decisions for herself due to marked confusion/dementia. Patient spouse is not on her bank account and has no access to her money. Patient does not have additional POA or decision-maker. Medical Exam Vital signs and Labs for Last 24 Hours: Vital Signs Temp Pulse Pulse Resp BP Pulse Ox O2 Del Method 03/26/25 13:00 Room Air 03/26/25 11:00 Room Air 03/26/25 09:00 Room Air 03/26/25 08:00 Room Air 03/26/25 07:47 97.8 F 98 H 16 122/96 H 96 Room Air 03/26/25 06:53 Room Air 03/26/25 05:00 Room Air 03/26/25 04:00 98.2 F 92 H 16 124/58 L 91 L Room Air 03/26/25 03:00 Room Air 03/26/25 01:00 Room Air 03/25/25 23:00 Room Air 03/25/25 20:50 Room Air 03/25/25 20:00 Room Air 03/25/25 20:00 99.4 F 105 H 16 119/62 92 L Room Air 03/25/25 16:07 Nasal Cannula 03/25/25 16:00 100 H 03/25/25 16:00 98.3 F 120 H 16 119/46 L 95 Nasal Cannula 03/25/25 15:00 Nasal Cannula O2 Flow Rate 03/26/25 13:00 03/26/25 11:00 03/26/25 09:00 03/26/25 08:00 03/26/25 07:47 03/26/25 06:53 03/26/25 05:00 03/26/25 04:00 03/26/25 03:00 03/26/25 01:00 03/25/25 23:00 03/25/25 20:50 03/25/25 20:00 03/25/25 20:00 03/25/25 16:07 2 03/25/25 16:00 03/25/25 16:00 2 03/25/25 15:00 3 Intake and Output 03/25/25 03/26/25 03/26/25 23:59 07:59 15:59 Intake Total 101.5 / 986.5 580 / 1060 480 / 1060 Output Total 600 / 1400 200 / 200 Balance -498.5 / -413.5 380 / 860 480 / 860 Intake: Intake, Oral Amount 580 / 1060 480 / 1060 Intake, Total IV Amount 101.5 / 206.5 levETIRAcetam 500 mg In 0.9 % 101.5 / 206.5 Sodium Chloride 100 ml @ 210 mls/hr IV Q12H [facility] Rx#:[id number] Output: Output, Urine Amount 600 / 1400 200 / 200 Other: Number of Unmeasured Voids 0 0 Weight 80.785 kg Patient Weight 03/26/25 23:59 Weight 80.785 kg Laboratory Results - last 24 hr 03/26/25 05:16: WBC 6.4, RBC 4.67, Hgb 13.2, Hct 42.3, MCV 90.6, MCH 28.3, MCHC 31.2 L, RDW 13.8, Plt Count 313, MPV 10.3, Neut % (Auto) 70.9, Lymph % (Auto) 17.1, [place] % (Auto) 6.3, Eos % (Auto) 4.9, Baso % (Auto) 0.6, Neut # (Auto) 4.5, Lymph # (Auto) 1.1, [place] # (Auto) 0.4, Eos # (Auto) 0.3, Baso # (Auto) 0.0, Sodium 138, Potassium 3.2 L, Chloride 107, Carbon Dioxide 25, Anion Gap 9.2, BUN 13, Creatinine 0.70, Estimated Creat Clear 64, Estimated GFR 82, Est GFR ( Amer) 99, Glucose 92, Calcium 8.6, Total Bilirubin 0.3, AST 33, ALT 22, Alkaline Phosphatase 93, Total Protein 6.2 L, Albumin 3.2 L, Globulin 3.0, Albumin/Globulin Ratio 1.1 I & O for Labs for Last 24 Hours: Intake & Output 03/23/25 03/24/25 03/25/25 03/26/25 23:59 23:59 23:59 23:59 Intake Total 245 / 245 886.5 / 986.5 1060 / 1060 Output Total 1200 / 1400 200 / 200 Balance 245 / 245 -313.5 / -413.5 860 / 860 Weight 70.307 kg 81.363 kg 80.785 kg Constitutional: Present no acute distress, chronically ill appearing and cooperative Head: Present atraumatic Eyes: Present other (Legally blind, ptosis of right eye) Neck: Present normal inspection; Absent lymphadenopathy Respiratory: Present CTA bilaterally and normal respiratory effort; Absent wheezes or crackles Cardiac: Present Reg Rate and Rhythm and No Murmur GI: Present soft and normal bowel sounds; Absent distention or tenderness Rectal (female): Present deferred (female): Present deferred Extremities: Present normal inspection and full ROM; Absent tenderness or edema Skin: Present intact; Absent erythema Comment:: Decubitus wound on sacrum Neuro: Present Weakness, Grossly Intact and moves all extremities Comment:: Alert to self and situation Assessment and Plan *Assessment and plan (1) Generalized weakness: Status: Acute Category: Medical Code(s): R53.1 - Weakness (2) Seizure-like activity: Status: Acute Category: Medical Code(s): R29.818 - Other symptoms and signs involving the nervous system (3) Adult failure to thrive: Status: Acute Category: Medical Code(s): R62.7 - Adult failure to thrive (4) Multiple rib fractures: Status: Acute Category: Medical Code(s): S22.49XA - Multiple fractures of ribs, unspecified side, initial encounter for closed fracture (5) Frequent falls: Status: Acute Category: Medical Code(s): R29.6 - Repeated falls (6) Decubitus ulcer of sacral area: Status: Acute Category: Medical Code(s): L89.159 - Pressure ulcer of sacral region, unspecified stage Plan Ms. Ballesteros is a 74-year-old female who presented to the emergency department on 03/24/2025 via EMS after a fall. Per patient and 's patient had fallen on 03/21/2025 and has been unable to get up since. That is approximately 3 days ago. Per he attempted to get patient up and off of the ground but was unable. Patient does endorse weakness. No other complaints at this time. Patient does have pressure wounds on her coccyx and we will scattered abrasions on her legs and arms. Patient was recently in the ER and placement at that time was offered, declined. Patient's now endorses the need for potential placement. Patient apparently also had some seizure-like activity in the emergency department, was given a loading dose of IV Keppra. Patient has no known history of seizures and does not appear to be in a postictal state at this time. Emergency room workup was significant for CK of 300, multiple CTs of head, spine, back were obtained and show no acute findings. UA is unremarkable with only trace hematuria, chest x-ray shows several lower lateral left rib fractures, no evidence of pneumothorax. Minimal lactic acidosis of 2.3, CBC unremarkable. Patient's GCS is 14, negative neurological scans?therefore low concern for actual seizure. Patient did have a CTA of abdomen/pelvis which showed nonspecific subcutaneous edema in the buttocks, on exam patient does have large stage I pressure wound. Patient's vitals remained hemodynamically stable in the ED. general surgery was consulted, Dr. Pepper, from the ED due to left- sided rib fractures, recommendations for admission due to failure to thrive, frequent falls, rib fractures, generalized weakness. Hospital medicine was consulted, I agreed to admit the patient. Plan of care as follows: Patient's went to [facility] for private pay placement. It was brought to our attention patient's is not on her account and she is unable to sign for self. At this time she does not have a POA. Tonia Simental social work contacted APS for further investigation. APS evaluated patient today and plans to reach out to the bank for further information. At this time they are in agreeance and do not feel she is able to make decisions for herself and are investigating the ability of spouse to make decisions for her. At this time patient requires hospitalization due to weakness and need for placement. #Generalized weakness #Frequent falls #Failure to thrive #Decubitus ulcer of sacrum, unstageable, present on admission ? Patient on exam notable for generalized weakness, PT/OT consulted for further evaluation of patient's needs. Evaluation states recommendation of SNF facility following discharge for continued skilled therapy. Patient and spouse are interested in possible rehab/placement. After speaking with patient's he states that she does have a known history of dementia and is intermittently confused. She is able to tell me where she is and who she is but unable to tell me current year or current details. Patient's at bedside states she has progressively gotten more weak over the past 2 weeks. He does endorse that she has been on the ground since Monday but has been responsive and interactive. Patient has notable wound on her coccyx, unstageable. Wound care consulted. Recommendations to continue with Mepilex pressure-relief dressings. Frequent turns. Patient denies pain. Lungs CTA. Per patient spouse she is legally blind, ptosis noted of right eye (POA). ? Patient was able to ambulate today with therapy and assist. She is still intermittently confused. ? Patient remains on room air and stable with O2 saturation greater than 90%.. ? CBC unremarkable, electrolytes within normal range, kidney function within normal range. TSH less than 0.02 this appears to be a chronic issue for the patient. Potassium slightly low at 3.2, replace per protocol. Will recheck labs in the morning if unremarkable, lab holiday on Monday. #Seizure-like activity ? Per ER staff patient had what appeared to be seizure-like activity. Patient does not appear to be postictal. Patient received IV bolus Keppra in the ED, will continue Keppra 500 twice daily at this time. Seizure precautions in place. Full code VTE?Lovenox Up with assistance Regular diet
[2025-03-26 16:00] VITALS: BP 102/46; PULSE 110; RESP 16; TEMP 36.6; O2SAT 95
--- NOTE | 2025-03-26 17:42 | PC.NURSE ---
Pt has been alert to self, birthday, and place this shift with intermittent confusion. Vital signs stable tolerating room air. Pt has tolerated PO pills and her diet. Potassium replaced per protocol. Pt has been turned and repositioned Q2 turns. Dressing to wound on coccyx. Pt has sat up in the chair most of this shift. Pt resting comfortably right side lying in bed with no further needs voiced at this time. Call light within reach. Bed alarm in place
[2025-03-26 18:06] VITALS: BP 129/69
[2025-03-26 20:00] VITALS: BP 119/60; PULSE 100; RESP 16; TEMP 36.5; O2SAT 94
[2025-03-26] MEDS: MELATONIN 5MG TABLET 5 MG PO (21:12)
[2025-03-27 04:00] VITALS: BP 120/54; PULSE 98; RESP 16; TEMP 36.7; O2SAT 94; BMI 28.9
[2025-03-27 07:35] LABS: Hematocrit 42.9 % (37.0-47.0); Hemoglobin 13.7 g/dL (12.2-16.2); Immature Granulocytes % 0.4 %; Mean Corpuscular HGB Conc 31.9 g/dL (31.8-35.4); Mean Corpuscular Hemoglobin 29.1 pg (27.0-31.2); Mean Corpuscular Volume 91.1 fl (81-99); Nucleated Red Blood Cells % 0 %; Platelet Count 316 K/mm3 (142-424); Red Blood Count 4.71 M/mm3 (4.20-5.40); Red Cell Distribution Width-SD 45.7 fL; White Blood Count 5.2 K/mm3 (4.8-10.8)
[2025-03-27 07:48] LABS: Anion Gap 8.3 mEq/L (5-15); Blood Urea Nitrogen 9 mg/dl (7-17); Calcium 9.0 mg/dl (8.4-10.2); Carbon Dioxide 25 mmol/L (22.0-30.0); Chloride 106 mmol/L (98-107); Creatinine Clearance Estimated 65 mL/min (50-200); Creatinine,Serum 0.70 mg/dl (0.52-1.04); Estimated Glomerular Filt Rate 82 ml/min (>60); GFR (African American) 99 ML/MIN (>60); Glucose 94 mg/dl (74-100); Potassium 4.3 mmoL/L (3.5-5.1); Sodium 135 mmol/L (136-145)
[2025-03-27 08:00] VITALS: BP 118/82; PULSE 89; RESP 16; TEMP 37.1; O2SAT 95
--- NOTE | 2025-03-27 08:07 | P.PN_ITS ---
<Statement entered by Jw Olvera MD - 03/27/25 11:23> Rounded on patient after nurse practitioner. Personally examined and interviewed patient. Agree with exam findings and care plan as documented. Subjective *Date: 03/27/25 *Time: 08:07 Interval history: Patient doing well this morning, ambulated to bathroom with walker. at bedside. Has no complaints able to tell me where she is and her name and birthday, unable to tell me year/situation. APS case pending. Medical Exam Vital signs and Labs for Last 24 Hours: Vital Signs Temp Pulse Resp BP Pulse Ox O2 Del Method 03/27/25 05:00 Room Air 03/27/25 04:00 98.1 F 98 H 16 120/54 L 94 L Room Air 03/27/25 03:00 Room Air 03/27/25 01:40 Room Air 03/26/25 23:00 Room Air 03/26/25 21:00 Room Air 03/26/25 20:00 Room Air 03/26/25 20:00 97.7 F 100 H 16 119/60 94 L Room Air 03/26/25 18:51 Room Air 03/26/25 18:06 129/69 03/26/25 17:00 Room Air 03/26/25 16:00 98 F 110 H 16 102/46 L 95 Room Air 03/26/25 15:00 Room Air 03/26/25 13:00 Room Air 03/26/25 11:00 Room Air 03/26/25 09:00 Room Air Intake and Output 03/26/25 03/27/25 03/27/25 23:59 07:59 15:59 Intake Total 360 / 1470 50 / 50 Output Total 0 / 0 Balance 360 / 1270 50 / 50 Intake: Intake, Oral Amount 360 / 1470 50 / 50 Output: Output, Urine Amount 0 / 0 Other: Number of Unmeasured Voids 1 Weight 81.601 kg Patient Weight 03/27/25 23:59 Weight 81.601 kg Laboratory Results - last 24 hr 03/27/25 06:26: WBC 5.2, RBC 4.71, Hgb 13.7, Hct 42.9, MCV 91.1, MCH 29.1, MCHC 31.9, RDW 13.6, Plt Count 316, MPV 10.4, Neut % (Auto) 70.5, Lymph % (Auto) 18.1, [place] % (Auto) 5.0, Eos % (Auto) 4.8, Baso % (Auto) 1.2, Neut # (Auto) 3.7, Lymph # (Auto) 0.9, [place] # (Auto) 0.3, Eos # (Auto) 0.3, Baso # (Auto) 0.1 I & O for Labs for Last 24 Hours: Intake & Output 03/24/25 03/25/25 03/26/25 03/27/25 23:59 23:59 23:59 23:59 Intake Total 245 / 245 886.5 / 986.5 1420 / 1470 50 / 50 Output Total 1200 / 1400 200 / 200 0 / 0 Balance 245 / 245 -313.5 / -413.5 1220 / 1270 50 / 50 Weight 70.307 kg 81.363 kg 80.785 kg 81.601 kg Constitutional: Present no acute distress, chronically ill appearing and cooperative Head: Present atraumatic Eyes: Present other (Legally blind, ptosis of right eye) Neck: Present normal inspection; Absent lymphadenopathy Respiratory: Present CTA bilaterally and normal respiratory effort; Absent wheezes or crackles Cardiac: Present Reg Rate and Rhythm and No Murmur GI: Present soft and normal bowel sounds; Absent distention or tenderness Rectal (female): Present deferred (female): Present deferred Extremities: Present normal inspection and full ROM; Absent tenderness or edema Skin: Present intact; Absent erythema Comment:: Decubitus wound on sacrum Neuro: Present Weakness, Grossly Intact and moves all extremities Comment:: Alert to self and situation Assessment and Plan *Assessment and plan (1) Generalized weakness: Status: Acute Category: Medical Code(s): R53.1 - Weakness (2) Seizure-like activity: Status: Acute Category: Medical Code(s): R29.818 - Other symptoms and signs involving the nervous system (3) Adult failure to thrive: Status: Acute Category: Medical Code(s): R62.7 - Adult failure to thrive (4) Multiple rib fractures: Status: Acute Category: Medical Code(s): S22.49XA - Multiple fractures of ribs, unspecified side, initial encounter for closed fracture (5) Frequent falls: Status: Acute Category: Medical Code(s): R29.6 - Repeated falls (6) Decubitus ulcer of sacral area: Status: Acute Category: Medical Code(s): L89.159 - Pressure ulcer of sacral region, unspecified stage Plan Ms. Ballesteros is a 74-year-old female who presented to the emergency department on 03/24/2025 via EMS after a fall. Per patient and 's patient had fallen on 03/21/2025 and has been unable to get up since. That is approximately 3 days ago. Per he attempted to get patient up and off of the ground but was unable. Patient does endorse weakness. No other complaints at this time. Patient does have pressure wounds on her coccyx and we will scattered abrasions on her legs and arms. Patient was recently in the ER and placement at that time was offered, declined. Patient's now endorses the need for potential placement. Patient apparently also had some seizure-like activity in the emergency department, was given a loading dose of IV Keppra. Patient has no known history of seizures and does not appear to be in a postictal state at this time. Emergency room workup was significant for CK of 300, multiple CTs of head, spine, back were obtained and show no acute findings. UA is unremarkable with only trace hematuria, chest x-ray shows several lower lateral left rib fractures, no evidence of pneumothorax. Minimal lactic acidosis of 2.3, CBC unremarkable. Patient's GCS is 14, negative neurological scans?therefore low concern for actual seizure. Patient did have a CTA of abdomen/pelvis which showed nonspecific subcutaneous edema in the buttocks, on exam patient does have large stage I pressure wound. Patient's vitals remained hemodynamically stable in the ED. general surgery was consulted, Dr. Pepper, from the ED due to left- sided rib fractures, recommendations for admission due to failure to thrive, frequent falls, rib fractures, generalized weakness. Hospital medicine was consulted, I agreed to admit the patient. Plan of care as follows: Patient's went to [facility] for private pay placement. It was brought to our attention patient's is not on her account and she is unable to sign for self. At this time she does not have a POA. Tonia Simental social work contacted APS for further investigation. APS evaluated patient today and plans to reach out to the bank for further information. At this time they are in agreeance and do not feel she is able to make decisions for herself and are investigating the ability of spouse to make decisions for her. At this time patient requires hospitalization due to weakness and need for placement. #Generalized weakness #Frequent falls #Failure to thrive #Decubitus ulcer of sacrum, unstageable, present on admission ? Patient on exam notable for generalized weakness, PT/OT consulted for further evaluation of patient's needs. Evaluation states recommendation of SNF facility following discharge for continued skilled therapy. Patient and spouse are interested in possible rehab/placement. Patient was able to ambulate to the bathroom with walker, slightly still unsteady but did well. After speaking with patient's he states that she does have a known history of dementia and is intermittently confused. She is able to tell me where she is and who she is but unable to tell me current year or current details. Patient's at bedside states she has progressively gotten more weak over the past 2 weeks. He does endorse that she has been on the ground since Monday but has been responsive and interactive. Patient has notable wound on her coccyx, unstag eable. Wound care consulted. Recommendations to continue with Mepilex pressure-relief dressings. Frequent turns. Patient denies pain. Lungs CTA. Per patient spouse she is legally blind, ptosis noted of right eye (POA). ? Patient was able to ambulate today with therapy and assist. She is still intermittently confused. ? Patient remains on room air and stable with O2 saturation greater than 90%.. Vital signs remained stable. ? CBC unremarkable, electrolytes within normal range, kidney function within normal range. TSH less than 0.02 this appears to be a chronic issue for the patient. Lab work unremarkable, lab holiday tomorrow #Seizure-like activity ? Per ER staff patient had what appeared to be seizure-like activity. Patient does not appear to be postictal. Patient received IV bolus Keppra in the ED, will continue Keppra 500 twice daily at this time. Seizure precautions in place. No seizure-like activity since admission. Full code VTE?Lovenox Up with assistance Regular diet
--- NOTE | 2025-03-27 15:01 | PC.NURSE ---
Aox 2 with confusion at times, up with assistance times 2 to restroom, brief in place, no iv and md. aware, APS involved in patient care, lovenox for vte, turn every two hours, seizure precautions and bed alarm active.
[2025-03-27 16:00] VITALS: BP 146/98; PULSE 103; RESP 16; TEMP 37; O2SAT 95
[2025-03-27 20:00] VITALS: BP 118/68; PULSE 95; RESP 12; TEMP 36.9; O2SAT 96
[2025-03-27] MEDS: MELATONIN 5MG TABLET 5 MG PO (20:02)
--- NOTE | 2025-03-28 03:25 | PC.NURSE ---
Pt has remained asleep the majority of the shift. When awake is only alert to self. She has tolerated room air. Q2 turns. Purewick has remained in place. Currently asleep with bed alarm in place.
[2025-03-28 04:00] VITALS: BP 124/59; PULSE 72; RESP 16; TEMP 36.4; O2SAT 95; BMI 28.9
[2025-03-28 08:00] VITALS: BP 140/74; PULSE 90; RESP 18; TEMP 36.5; O2SAT 96
--- NOTE | 2025-03-28 08:11 | P.PN_ITS ---
<Statement entered by Jw Olvera MD - 03/28/25 10:07> Rounded on patient after nurse practitioner. Personally examined and interviewed patient. Agree with exam findings and care plan as documented. Subjective *Date: 03/28/25 *Time: 08:11 Interval history: Patient doing well today, sitting up in bed eating breakfast. States she has no needs at this time, states she feels well. Is able to tell me her name, birthday, where she is. Still confused on situation. APS case still ongoing. Medical Exam Vital signs and Labs for Last 24 Hours: Vital Signs Temp Pulse Resp BP Pulse Ox O2 Del Method 03/28/25 06:48 Room Air 03/28/25 05:00 Room Air 03/28/25 04:00 97.6 F 72 16 124/59 L 95 Room Air 03/28/25 03:00 Room Air 03/28/25 01:00 Room Air 03/27/25 22:51 Room Air 03/27/25 21:00 Room Air 03/27/25 20:00 Room Air 03/27/25 20:00 98.4 F 95 H 12 118/68 96 Room Air 03/27/25 18:03 Room Air 03/27/25 17:00 Room Air 03/27/25 16:00 98.6 F 103 H 16 146/98 H 95 Room Air 03/27/25 15:00 Room Air 03/27/25 13:00 Room Air 03/27/25 10:14 Room Air Intake and Output 03/27/25 03/28/25 03/28/25 23:59 07:59 15:59 Intake Total 360 / 1350 150 / 150 Output Total 450 / 450 0 / 0 Balance -90 / 900 150 / 150 Intake: Intake, Oral Amount 360 / 1350 150 / 150 Output: Output, Urine Amount 450 / 450 0 / 0 Other: Number of Unmeasured Voids 0 1 Weight 81.6 kg Patient Weight 03/28/25 23:59 Weight 81.6 kg Laboratory Results - last 24 hr 03/27/25 06:26: Sodium 135 L, Potassium 4.3 D, Chloride 106, Carbon Dioxide 25, Anion Gap 8.3, BUN 9 D, Creatinine 0.70, Estimated Creat Clear 65, Estimated GFR 82, Est GFR ( Amer) 99, Glucose 94, Calcium 9.0 I & O for Labs for Last 24 Hours: Intake & Output 03/25/25 03/26/25 03/27/25 03/28/25 23:59 23:59 23:59 23:59 Intake Total 886.5 / 986.5 1420 / 1470 1200 / 1350 150 / 150 Output Total 1200 / 1400 200 / 200 450 / 450 0 / 0 Balance -313.5 / -413.5 1220 / 1270 750 / 900 150 / 150 Weight 81.363 kg 80.785 kg 81.601 kg 81.6 kg Constitutional: Present no acute distress, chronically ill appearing and cooperative Head: Present atraumatic Eyes: Present other (Legally blind, ptosis of right eye) Neck: Present normal inspection; Absent lymphadenopathy Respiratory: Present CTA bilaterally and normal respiratory effort; Absent wheezes or crackles Cardiac: Present Reg Rate and Rhythm and No Murmur GI: Present soft and normal bowel sounds; Absent distention or tenderness Rectal (female): Present deferred (female): Present deferred Extremities: Present normal inspection and full ROM; Absent tenderness or edema Skin: Present intact; Absent erythema Comment:: Decubitus wound on sacrum Neuro: Present Weakness, Grossly Intact and moves all extremities Comment:: Alert to self and situation Assessment and Plan *Assessment and plan (1) Generalized weakness: Status: Acute Category: Medical Code(s): R53.1 - Weakness (2) Seizure-like activity: Status: Acute Category: Medical Code(s): R29.818 - Other symptoms and signs involving the nervous system (3) Adult failure to thrive: Status: Acute Category: Medical Code(s): R62.7 - Adult failure to thrive (4) Multiple rib fractures: Status: Acute Category: Medical Code(s): S22.49XA - Multiple fractures of ribs, unspecified side, initial encounter for closed fracture (5) Frequent falls: Status: Acute Category: Medical Code(s): R29.6 - Repeated falls (6) Decubitus ulcer of sacral area: Status: Acute Category: Medical Code(s): L89.159 - Pressure ulcer of sacral region, unspecified stage Plan Ms. Ballesteros is a 74-year-old female who presented to the emergency department on 03/24/2025 via EMS after a fall. Per patient and 's patient had fallen on 03/21/2025 and has been unable to get up since. That is approximately 3 days ago. Per he attempted to get patient up and off of the ground but was unable. Patient does endorse weakness. No other complaints at this time. Patient does have pressure wounds on her coccyx and we will scattered abrasions on her legs and arms. Patient was recently in the ER and placement at that time was offered, declined. Patient's now end orses the need for potential placement. Patient apparently also had some seizure-like activity in the emergency department, was given a loading dose of IV Keppra. Patient has no known history of seizures and does not appear to be in a postictal state at this time. Emergency room workup was significant for CK of 300, multiple CTs of head, spine, back were obtained and show no acute findings. UA is unremarkable with only trace hematuria, chest x-ray shows several lower lateral left rib fractures, no evidence of pneumothorax. Minimal lactic acidosis of 2.3, CBC unremarkable. Patient's GCS is 14, negative neurological scans?therefore low concern for actual seizure. Patient did have a CTA of abdomen/pelvis which showed nonspecific subcutaneous edema in the buttocks, on exam patient does have large stage I pressure wound. Patient's vitals remained hemodynamically stable in the ED. general surgery was consulted, Dr. Pepper, from the ED due to left- sided rib fractures, recommendations for admission due to failure to thrive, frequent falls, rib fractures, generalized weakness. Hospital medicine was consulted, I agreed to admit the patient. Plan of care as follows: Patient's went to [facility] for private pay placement. It was brought to our attention patient's is not on her account and she is unable to sign for self. At this time she does not have a POA. Tonia Simnetal, social work contacted APS for further investigation. APS evaluated patient today and plans to reach out to the bank for further information. At this time they are in agreeance and do not feel she is able to make decisions for herself and are investigating the ability of spouse to make decisions for her. At this time patient requires hospitalization due to weakness and need for placement. #Generalized weakness #Frequent falls #Failure to thrive #Decubitus ulcer of sacrum, unstageable, present on admission ? Patient on exam notable for generalized weakness, PT/OT consulted for further evaluation of patient's needs. Evaluation states recommendation of SNF facility following discharge for continued skilled therapy. Patient and spouse are interested in possible rehab/placement. Patient was able to ambulate to the bathroom with walker, slightly still unsteady but did well. After speaking with patient's he states that she does have a known history of dementia and is intermittently confused. She is able to tell me where she is and who she is but unable to tell me current year or current details. Patient's at bedside states she has progressively gotten more weak over the past 2 weeks. He does endorse that she has been on the ground since Monday but has been responsive and interactive. Patient has notable wound on her coccyx, unstageable. Wound care consulted. Recommendations to continue with Mepilex pressure-relief dressings. Frequent turns. Patient denies pain. Lungs CTA. Per patient spouse she is legally blind, ptosis noted of right eye (POA). ? Patient has been ambulating independently x 1 standby assist with walker. Mentation doing better, still periods of confusion. APS case still ongoing at this time ? Patient stable on room air, hemodynamically stable ? Labs during admission have been unremarkable, lab holiday today. #Seizure-like activity ? Per ER staff patient had what appeared to be seizure-like activity. Patient does not appear to be postictal. Patient received IV bolus Keppra in the ED, will continue Keppra 500 twice daily at this time. Seizure precautions in place. No seizure-like activity since admission. Full code VTE?Lovenox Up with assistance, ambulate as tolerated Regular diet
--- NOTE | 2025-03-28 15:51 | PC.NURSE ---
VS stable and patient remained on room air. Patient alert to self but confused to place, time, and situation. Lung sounds clear. Seizure pads in place. No needs voiced at this time
[2025-03-28 16:00] VITALS: BP 127/80; PULSE 102; RESP 18; TEMP 37; O2SAT 97
[2025-03-28 20:00] VITALS: BP 128/66; PULSE 91; RESP 12; TEMP 36.6; O2SAT 97
[2025-03-28] MEDS: MELATONIN 5MG TABLET 5 MG PO (21:38)
[2025-03-29 04:00] VITALS: BP 139/81; PULSE 84; RESP 14; TEMP 36.6; O2SAT 97; BMI 29.2
--- NOTE | 2025-03-29 07:10 | P.PN_ITS ---
Subjective *Date: 03/29/25 *Time: 12:05 Interval history: No acute distress. Answering questions appropriately. On room air. at bedside on rounds Medical Exam Vital signs and Labs for Last 24 Hours: Vital Signs Temp Pulse Resp BP Pulse Ox O2 Del Method 03/29/25 04:00 97.8 F 84 14 139/81 97 Room Air 03/29/25 03:00 Room Air 03/29/25 01:00 Room Air 03/28/25 23:00 Room Air 03/28/25 21:00 Room Air 03/28/25 20:00 Room Air 03/28/25 20:00 97.9 F 91 H 12 128/66 97 Room Air 03/28/25 18:43 Room Air 03/28/25 17:00 Room Air 03/28/25 16:00 98.6 F 102 H 18 127/80 97 Room Air 03/28/25 15:00 Room Air 03/28/25 13:00 Room Air 03/28/25 11:15 Room Air 03/28/25 09:20 Room Air 03/28/25 08:00 Room Air 03/28/25 08:00 97.7 F 90 18 140/74 96 Room Air Intake and Output 03/28/25 03/28/25 03/29/25 15:59 23:59 07:59 Intake Total 600 / 1110 120 / 1110 240 / 240 Output Total 200 / 600 1350 / 1350 Balance 600 / 510 -80 / 510 -1110 / -1110 Intake: Intake, Oral Amount 600 / 1110 120 / 1110 240 / 240 Output: Output, Urine Amount 200 / 600 1350 / 1350 Other: Number of Unmeasured Voids 0 0 Weight 82.645 kg Patient Weight 03/29/25 23:59 Weight 82.645 kg I & O for Labs for Last 24 Hours: Intake & Output 03/26/25 03/27/25 03/28/25 03/29/25 23:59 23:59 23:59 23:59 Intake Total 1420 / 1470 1200 / 1350 870 / 1110 240 / 240 Output Total 200 / 200 450 / 450 200 / 600 1350 / 1350 Balance 1220 / 1270 750 / 900 670 / 510 -1110 / -1110 Weight 80.785 kg 81.601 kg 81.6 kg 82.645 kg Constitutional: Present no acute distress, chronically ill appearing and cooperative Head: Present atraumatic Eyes: Present other (Legally blind, ptosis of right eye) Neck: Present normal inspection; Absent lymphadenopathy Respiratory: Present CTA bilaterally and normal respiratory effort; Absent wheezes or crackles Cardiac: Present Reg Rate and Rhythm and No Murmur GI: Present soft and normal bowel sounds; Absent distention or tenderness Rectal (female): Present deferred (female): Present deferred Extremities: Present normal inspection and full ROM; Absent tenderness or edema Skin: Present intact; Absent erythema Comment:: Decubitus wound on sacrum Neuro: Present Weakness, Grossly Intact and moves all extremities Comment:: Alert to self and situation Assessment and Plan *Assessment and plan (1) Generalized weakness: Status: Acute Category: Medical Code(s): R53.1 - Weakness (2) Seizure-like activity: Status: Acute Category: Medical Code(s): R29.818 - Other symptoms and signs involving the nervous system (3) Adult failure to thrive: Status: Acute Category: Medical Code(s): R62.7 - Adult failure to thrive (4) Multiple rib fractures: Status: Acute Category: Medical Code(s): S22.49XA - Multiple fractures of ribs, unspecified side, initial encounter for closed fracture (5) Frequent falls: Status: Acute Category: Medical Code(s): R29.6 - Repeated falls (6) Decubitus ulcer of sacral area: Status: Acute Category: Medical Code(s): L89.159 - Pressure ulcer of sacral region, unspecified stage Plan Ms. Ballesteros is a 74-year-old female who presented to the emergency department on 03/24/2025 via EMS after a fall. Per patient and 's patient had fallen on 03/21/2025 and has been unable to get up since. That is approximately 3 days ago. Per he attempted to get patient up and off of the ground but was unable. Patient does endorse weakness. No other complaints at this time. Patient does have pressure wounds on her coccyx and we will scattered abrasions on her legs and arms. Patient was recently in the ER and placement at that time was offered, declined. Patient's now endorses the need for potential placement. Patient apparently also had some seizure-like activity in the emergency department, was given a loading dose of IV Keppra. Patient has no known history of seizures and does not appear to be in a postictal state at this time. Emergency room workup was significant for CK of 300, multiple CTs of head, spine, back were obtained and show no acute findings. UA is unremarkable with only trace hematuria, chest x-ray shows several lower lateral left rib fractures, no evidence of pneumothorax. Minimal lactic acidosis of 2.3, CBC unremarkable. Patient's GCS is 14, negative neurological scans?therefore low concern for actual seizure. Patient did have a CTA of abdomen/pelvis which showed nonspecific subcutaneous edema in the buttocks, on exam patient does have large stage I pressure wound. Patient's vitals remained hemodynamically stable in the ED. general surgery was consulted, Dr. Pepper, from the ED due to left- sided rib fractures, recommendations for admission due to failure to thrive, frequent falls, rib fractures, generalized weakness. Hospital medicine was consulted, I agreed to admit the patient. Plan of care as follows: Patient's went to [employer] for private pay placement. It was brought to our attention patient's is not on her account and she is unable to sign for self. At this time she does not have a POA. Tonia Simental social work contacted APS for further investigation. APS evaluated patient today and plans to reach out to the bank for further information. At this time they are in agreeance and do not feel she is able to make decisions for herself and are investigating the ability of spouse to make decisions for her. At this time patient requires hospitalization due to weakness and need for placement. #Generalized weakness #Frequent falls #Failure to thrive #Decubitus ulcer of sacrum, unstageable, present on admission ? Patient on exam notable for generalized weakness, PT/OT consulted for further evaluation of patient's needs. Evaluation states recommendation of SNF facility following discharge for continued skilled therapy. Patient and spouse are interested in possible rehab/placement. Patient was able to ambulate to the bathroom with walker, slightly still unsteady but did well. After speaking with patient's he states that she does have a known history of dementia and is intermittently confused. She is able to tell me where she is and who she is but unable to tell me current year or current details. Patient's at bedside states she has progressively gotten more weak over the past 2 weeks. He does endorse that she has been on the ground since Monday but has been responsive and interactive. Patient has notable wound on her coccyx, unstageable. Wound care consulted. Recommendations to continue with Mepilex pressure-relief dressings. Frequent turns. Patient denies pain. Lungs CTA. Per patient spouse she is legally blind, ptosis noted of right eye (POA). ? Patient has been ambulating independently x 1 standby assist with walker. Mentation doing better, still periods of confusion. APS case still ongoing at this time ? Patient stable on room air, hemodynamically stable ? Labs during admission have been unremarkable, lab holiday today. #Seizure-like activity ? Per ER staff patient had what appeared to be seizure-like activity. Patient does not appear to be postictal. Patient received IV bolus Keppra in the ED, will continue Keppra 500 twice daily at this time. Seizure precautions in place. No seizure-like activity since admission. Full code VTE?Lovenox Up with assistance, ambulate as tolerated Regular diet Patient showing improvement. Awaiting APS recommendations for discharge.
[2025-03-29 08:00] VITALS: BP 159/69; PULSE 87; RESP 16; TEMP 36.9; O2SAT 96
[2025-03-29] MEDS: HYDROCODONE/APAP 5/325 MG TABLET 1 TAB PO (14:58)
--- NOTE | 2025-03-29 15:23 | PC.NURSE ---
Aox 2 with confusion, seizure pads in place, bed alarm active, on RA, pain meds given once for back pain, APS is following patient, has bed approved at [facility], no iv and Md. aware, wound on coccyx with mepilex in place.
[2025-03-29 16:00] VITALS: BP 138/75; PULSE 90; RESP 18; TEMP 36.9; O2SAT 99
[2025-03-29 20:00] VITALS: BP 136/65; PULSE 94; RESP 16; TEMP 36.4; O2SAT 97
[2025-03-29] MEDS: MELATONIN 5MG TABLET 5 MG PO (20:55)
[2025-03-30 04:00] VITALS: BP 135/82; PULSE 78; RESP 16; TEMP 36.5; O2SAT 97; BMI 29.1
--- NOTE | 2025-03-30 05:16 | PC.NURSE ---
Pt is alert to self. She is on RA. APS is following PT she is awaiting placement at [facility]. Pt does not have a IV MD's are aware. She is eating a mechanical soft diet. Last BM was 03/29/2025. Pt is being turned Q2 hours due to her skin issues. Foam Mepilex is placed on her sacral area. Call light within reach. Bed is in the lowest position. VIOLETTA REMY RN
--- NOTE | 2025-03-30 07:22 | P.PN_ITS ---
Subjective *Date: 03/30/25 *Time: 09:39 Interval history: Pleasant on interview. Tolerating p.o. intake. Working with therapy. Hemodynamically stable. Afebrile. Interactive on exam Medical Exam Vital signs and Labs for Last 24 Hours: Vital Signs Temp Pulse Resp BP Pulse Ox O2 Del Method 03/30/25 06:59 Room Air 03/30/25 05:00 Room Air 03/30/25 04:00 97.7 F 78 16 135/82 97 Room Air 03/30/25 03:00 Room Air 03/30/25 01:00 Room Air 03/29/25 23:00 Room Air 03/29/25 21:00 Room Air 03/29/25 20:00 Room Air 03/29/25 20:00 97.5 F L 94 H 16 136/65 97 Room Air 03/29/25 18:23 Room Air 03/29/25 16:12 Room Air 03/29/25 16:00 98.4 F 90 18 138/75 99 Room Air 03/29/25 14:38 Room Air 03/29/25 12:53 Room Air 03/29/25 10:28 Room Air 03/29/25 08:07 Room Air 03/29/25 08:00 98.4 F 87 16 159/69 H 96 Room Air 03/29/25 08:00 Room Air Intake and Output 03/29/25 03/29/25 03/30/25 15:59 23:59 07:59 Intake Total 360 / 1080 360 / 1080 120 / 120 Output Total 0 / 1800 450 / 1800 800 / 800 Balance 360 / -720 -90 / -720 -680 / -680 Intake: Intake, Oral Amount 360 / 1080 360 / 1080 120 / 120 Output: Output, Urine Amount 0 / 1800 450 / 1800 800 / 800 Other: Number of Unmeasured Voids 1 Number of Bowel Movements 1 Weight 82.236 kg Patient Weight 03/30/25 23:59 Weight 82.236 kg I & O for Labs for Last 24 Hours: Intake & Output 03/27/25 03/28/25 03/29/25 03/30/25 23:59 23:59 23:59 23:59 Intake Total 1200 / 1350 870 / 1110 960 / 1080 120 / 120 Output Total 450 / 450 200 / 600 1800 / 1800 800 / 800 Balance 750 / 900 670 / 510 -840 / -720 -680 / -680 Weight 81.601 kg 81.6 kg 82.645 kg 82.236 kg Constitutional: Present no acute distress, chronically ill appearing and cooperative Head: Present atraumatic Eyes: Present other (Legally blind, ptosis of right eye) Neck: Present normal inspection; Absent lymphadenopathy Respiratory: Present CTA bilaterally and normal respiratory effort; Absent wheezes or crackles Cardiac: Present Reg Rate and Rhythm and No Murmur GI: Present soft and normal bowel sounds; Absent distention or tenderness Rectal (female): Present deferred (female): Present deferred Extremities: Present normal inspection and full ROM; Absent tenderness or edema Skin: Present intact; Absent erythema Comment:: Decubitus wound on sacrum Neuro: Present Weakness, Grossly Intact, alert, awake, oriented x 3 and moves all extremities Assessment and Plan *Assessment and plan (1) Generalized weakness: Status: Acute Category: Medical Code(s): R53.1 - Weakness (2) Seizure-like activity: Status: Acute Category: Medical Code(s): R29.818 - Other symptoms and signs involving the nervous system (3) Adult failure to thrive: Status: Acute Category: Medical Code(s): R62.7 - Adult failure to thrive (4) Multiple rib fractures: Status: Acute Category: Medical Code(s): S22.49XA - Multiple fractures of ribs, unspecified side, initial encounter for closed fracture (5) Frequent falls: Status: Acute Category: Medical Code(s): R29.6 - Repeated falls (6) Decubitus ulcer of sacral area: Status: Acute Category: Medical Code(s): L89.159 - Pressure ulcer of sacral region, unspecified stage Plan Ms. Ballesteros is a 74-year-old female who presented to the emergency department on 03/24/2025 via EMS after a fall. Per patient and 's patient had fallen on 03/21/2025 and has been unable to get up since. That is approximately 3 days ago. Per he attempted to get patient up and off of the ground but was unable. Patient does endorse weakness. No other complaints at this time. Patient does have pressure wounds on her coccyx and we will scattered abrasions on her legs and arms. Patient was recently in the ER and placement at that time was offered, declined. Patient's now endorses the need for potential placement. Patient apparently also had some seizure-like activity in the emergency department, was given a loading dose of IV Keppra. Patient has no known history of seizures and does not appear to be in a postictal state at this time. Emergency room workup was significant for CK of 300, multiple CTs of head, spine, back were obtained and show no acute findings. UA is unremarkable with only trace hematuria, chest x-ray shows several lower lateral left rib fractures, no evidence of pneumothorax. Minimal lactic acidosis of 2.3, CBC unremarkable. Patient's GCS is 14, negative neurological scans?therefore low concern for actual seizure. Patient did have a CTA of abdomen/pelvis which showed nonspecific subcutaneous edema in the buttocks, on exam patient does have large stage I pressure wound. Patient's vitals remained hemodynamically stable in the ED. general surgery was consulted, Dr. Pepper, from the ED due to left- sided rib fractures, recommendations for admission due to failure to thrive, frequent falls, rib fractures, generalized weakness. Hospital medicine was consulted, I agreed to admit the patient. Plan of care as follows: Patient's went to withdrawal money for private pay placement. It was brought to our attention patient's is not on her account and she is kaylynn ble to sign for self. At this time she does not have a POA. Tonia Simental, social work contacted APS for further investigation. APS evaluated patient today and plans to reach out to the bank for further information. At this time they are in agreeance and do not feel she is able to make decisions for herself and are investigating the ability of spouse to make decisions for her. At this time patient requires hospitalization due to weakness and need for placement. She is awaiting APS recommendations for discharge. Showing improvement daily. Weakness improving. Ambulating with therapy. #Generalized weakness #Frequent falls #Failure to thrive #Decubitus ulcer of sacrum, unstageable, present on admission ? Patient on exam notable for generalized weakness, PT/OT consulted for further evaluation of patient's needs. Evaluation states recommendation of SNF facility following discharge for continued skilled therapy. Patient and spouse are interested in possible rehab/placement. Patient was able to ambulate to the bathroom with walker, slightly still unsteady but did well. After speaking with patient's he states that she does have a known history of dementia and is intermittently confused. More alert today, knows who she is and where she is. - Patient has notable wound on her coccyx, unstageable. Wound care consulted. Recommendations to continue with Mepilex pressure-relief dressings. Frequent turns. Patient denies pain. Lungs CTA. Per patient spouse she is legally blind, ptosis noted of right eye (POA). ? Patient has been ambulating independently x 1 standby assist with walker. Mentation doing better, APS case still ongoing at this time ? Patient stable on room air, hemodynamically stable ? Lab holiday today. Ordered CBC, CMP, magnesium for the morning #Seizure-like activity ? Per ER staff patient had what appeared to be seizure-like activity. Patient does not appear to be postictal. Patient received IV bolus Keppra in the ED, will continue Keppra 500 twice daily at this time. Seizure precautions in place. No seizure-like activity since admission. Full code VTE?Lovenox Up with assistance, ambulate as tolerated Regular diet
[2025-03-30] MEDS: HYDROCODONE/APAP 5/325 MG TABLET 1 TAB PO ×2 (07:23→18:50)
[2025-03-30 08:00] VITALS: BP 136/73; PULSE 85; RESP 16; TEMP 36.6; O2SAT 97
[2025-03-30 16:00] VITALS: BP 144/93; PULSE 101; RESP 16; TEMP 37; O2SAT 94
[2025-03-30 20:00] VITALS: BP 119/72; PULSE 68; RESP 16; O2SAT 98
[2025-03-30] MEDS: MELATONIN 5MG TABLET 5 MG PO (20:11)
[2025-03-31 04:00] VITALS: BP 140/83; PULSE 75; RESP 16; TEMP 36.8; O2SAT 95; BMI 29.3
[2025-03-31 06:25] LABS: Hematocrit 43.9 % (37.0-47.0); Hemoglobin 14.2 g/dL (12.2-16.2); Immature Granulocytes % 0.5 %; Mean Corpuscular HGB Conc 32.3 g/dL (31.8-35.4); Mean Corpuscular Hemoglobin 28.9 pg (27.0-31.2); Mean Corpuscular Volume 89.2 fl (81-99); Nucleated Red Blood Cells % 0 %; Platelet Count 392 K/mm3 (142-424); Red Blood Count 4.92 M/mm3 (4.20-5.40); Red Cell Distribution Width-SD 43.8 fL; White Blood Count 5.8 K/mm3 (4.8-10.8)
[2025-03-31 06:37] LABS: Albumin Level 3.5 g/dl (3.5-5.0); Chloride 105 mmol/L (98-107)
[2025-03-31 06:38] LABS: Potassium 4.3 mmoL/L (3.5-5.1); Sodium 140 mmol/L (136-145)
[2025-03-31 06:40] LABS: Alanine Aminotransferase 32 U/L (12-78); Alkaline Phosphatase 100 U/L (38-126); Anion Gap 13.3 mEq/L (5-15); Aspartate Amino Transferase 40 U/L (14-36); Bilirubin,Total 0.2 mg/dl (0.2-1.3); Blood Urea Nitrogen 11 mg/dl (7-17); Carbon Dioxide 26 mmol/L (22.0-30.0); Creatinine Clearance Estimated 66 mL/min (50-200); Creatinine,Serum 0.70 mg/dl (0.52-1.04); Estimated Glomerular Filt Rate 82 ml/min (>60); GFR (African American) 99 ML/MIN (>60)
[2025-03-31 06:41] LABS: Albumin/Globulin Ratio 1.1 (1.1-1.8); Calcium 8.8 mg/dl (8.4-10.2); Globulin 3.3 g/dL (1.3-3.2); Glucose 89 mg/dl (74-100); Magnesium 2.2 mg/dl (1.6-2.3); Phosphorous 3.9 mg/dl (2.5-4.5); Total Protein,Serum 6.8 g/dl (6.3-8.2)
[2025-03-31 08:00] VITALS: BP 146/75; PULSE 95; RESP 17; TEMP 36.3; O2SAT 97
--- NOTE | 2025-03-31 09:29 | P.PN_ITS ---
<Statement entered by Jw Olvera MD - 03/31/25 10:16> Rounded on patient after nurse practitioner. Personally examined and interviewed patient. Agree with exam findings and care plan as documented. Subjective *Date: 03/31/25 *Time: 09:29 Interval history: Ms. Ballesteros is doing well this morning, interactive with conversation. Up to chair with standby assist. Able to tell me her name, date of , where she is. Unable to tell me the year or her current living situation. Has no complaints this morning, lab work unremarkable. Awaiting APS information. Medical Exam Vital signs and Labs for Last 24 Hours: Vital Signs Temp Pulse Resp BP Pulse Ox O2 Del Method 03/31/25 08:00 97.4 F L 95 H 17 146/75 H 97 Room Air 03/31/25 07:43 Room Air 03/31/25 05:00 Room Air 03/31/25 04:00 98.2 F 75 16 140/83 95 Room Air 03/31/25 03:00 Room Air 03/31/25 01:00 Room Air 03/30/25 23:00 Room Air 03/30/25 21:00 Room Air 03/30/25 20:00 68 16 119/72 98 Room Air 03/30/25 20:00 Room Air 03/30/25 18:53 Room Air 03/30/25 17:00 Room Air 03/30/25 16:00 98.6 F 101 H 16 144/93 H 94 L Room Air 03/30/25 15:00 Room Air 03/30/25 12:34 Room Air 03/30/25 10:37 Room Air Intake and Output 03/30/25 03/31/25 03/31/25 23:59 07:59 15:59 Intake Total 360 / 1200 270 / 270 Output Total 1150 / 3650 1100 / 1100 0 / 1100 Balance -790 / -2450 -1100 / -830 270 / -830 Intake: Intake, Oral Amount 360 / 1200 270 / 270 Output: Output, Urine Amount 1150 / 3650 1100 / 1100 0 / 1100 Other: Number of Voids 0 Number of Unmeasured Voids 0 0 Weight 82.871 kg Patient Weight 03/31/25 23:59 Weight 82.871 kg Laboratory Results - last 24 hr 03/31/25 05:48: WBC 5.8, RBC 4.92, Hgb 14.2, Hct 43.9, MCV 89.2, MCH 28.9, MCHC 32.3, RDW 13.5, Plt Count 392, MPV 9.6, Neut % (Auto) 69.5, Lymph % (Auto) 16.9, [place] % (Auto) 6.2, Eos % (Auto) 5.7, Baso % (Auto) 1.2, Neut # (Auto) 4.0, Lymph # (Auto) 1.0, [place] # (Auto) 0.4, Eos # (Auto) 0.3, Baso # (Auto) 0.1, Sodium 140, Potassium 4.3, Chloride 105, Carbon Dioxide 26, Anion Gap 13.3, BUN 11, Creatinine 0.70, Estimated Creat Clear 66, Estimated GFR 82, Est GFR ( Amer) 99, Glucose 89, Calcium 8.8, Phosphorus 3.9, Magnesium 2.2, Total Bilirubin 0.2, AST 40 H, ALT 32, Alkaline Phosphatase 100, Total Protein 6.8, Albumin 3.5, Globulin 3.3 H, Albumin/Globulin Ratio 1.1 I & O for Labs for Last 24 Hours: Intake & Output 03/28/25 03/29/25 03/30/25 03/31/25 23:59 23:59 23:59 23:59 Intake Total 870 / 1110 960 / 1080 1200 / 1200 270 / 270 Output Total 200 / 600 1800 / 1800 3050 / 3650 1100 / 1100 Balance 670 / 510 -840 / -720 -1850 / -2450 -830 / -830 Weight 81.6 kg 82.645 kg 82.236 kg 82.871 kg Constitutional: Present no acute distress, chronically ill appearing and cooperative Head: Present atraumatic Eyes: Present other (Legally blind, ptosis of right eye) Neck: Present normal inspection; Absent lymphadenopathy Respiratory: Present CTA bilaterally and normal respiratory effort; Absent wheezes or crackles Cardiac: Present Reg Rate and Rhythm and No Murmur GI: Present soft and normal bowel sounds; Absent distention or tenderness Rectal (female): Present deferred (female): Present deferred Extremities: Present normal inspection and full ROM; Absent tenderness or edema Skin: Present intact; Absent erythema Comment:: Decubitus wound on sacrum Neuro: Present Weakness, Grossly Intact, alert, awake, oriented x 3 and moves all extremities Assessment and Plan *Assessment and plan (1) Generalized weakness: Status: Acute Category: Medical Code(s): R53.1 - Weakness (2) Seizure-like activity: Status: Acute Category: Medical Code(s): R29.818 - Other symptoms and signs involving the nervous system (3) Adult failure to thrive: Status: Acute Category: Medical Code(s): R62.7 - Adult failure to thrive (4) Multiple rib fractures: Status: Acute Category: Medical Code(s): S22.49XA - Multiple fractures of ribs, unspecified side, initial encounter for closed fracture (5) Frequent falls: Status: Acute Category: Medical Code(s): R29.6 - Repeated falls (6) Decubitus ulcer of sacral area: Status: Acute Category: Medical Code(s): L89.159 - Pressure ulcer of sacral region, unspecified stage Plan Ms. Ballesteros is a 74-year-old female who presented to the emergency department on 03/24/2025 via EMS after a fall. Per patient and 's patient had fallen on 03/21/2025 and has been unable to get up since. That is approximatel y 3 days ago. Per he attempted to get patient up and off of the ground but was unable. Patient endorsed weakness but had no other complaints at the time. Patient does have pressure wounds on her coccyx and we will scattered abrasions on her legs and arms. Patient was recently in the ER and placement at that time was offered, declined. Patient's now endorses the need for potential placement. Patient apparently also had some seizure-like activity in the emergency department, was given a loading dose of IV Keppra. Patient has no known history of seizures and did not appear to be in a postictal state postseizure like activity. Emergency room workup was significant for CK of 300, multiple CTs of head, spine, back were obtained and show no acute findings. UA is unremarkable with only trace hematuria, chest x-ray shows several lower lateral left rib fractures, no evidence of pneumothorax. Minimal lactic acidosis of 2.3, CBC unremarkable. Patient's GCS is 14, negative neurological scans?therefore low concern for actual seizure. Patient did have a CTA of abdomen/pelvis which showed nonspecific subcutaneous edema in the buttocks, on exam patient does have large unstageable pressure wound, nondraining. Patient's vitals remained hemodynamically stable in the ED. general surgery was consulted, Dr. Pepper, from the ED due to left-sided rib fractures, recommendations for admission due to failure to thrive, frequent falls, rib fractures, generalized weakness. Hospital medicine was consulted, I agreed to admit the patient. Plan of care as follows: Patient's went to [employer] [facility] for private pay placement last week. It was brought to our attention patient's is not on her account and she is unable to sign for self. At this time she does not have a POA. Tonia Simental, social work contacted [facility] for further investigation. APS evaluated patient on 03/26/2025, and plans to reach out to the bank for further information. At this time they are in agreeance and do not feel she is able to make decisions for herself and are investigating the ability of spouse to make decisions for her. At this time patient requires hospitalization due to weakness and need for placement. She is awaiting APS recommendations for discharge. Showing improvement daily. Weakness improving. Ambulating with therapy. She states she has no complaints at this time #Generalized weakness, improving #Frequent falls #Failure to thrive #Decubitus ulcer of sacrum, unstageable, present on admission ? Patient on initial exam was notable for generalized weakness, has improved significantly with PT/OT. Patient is able to ambulate with walker with standby assist in the room, to and from the bathroom, in and out of the bed and chair. Evaluation states recommendation of SNF facility following discharge for continued skilled therapy. Patient and spouse are interested in possible rehab/placement. After speaking with patient's he states that she does have a known history of dementia and is intermittently confused. More alert today, knows who she is and where she is. Patient continues to experience intermittent confusion. - Patient has notable wound on her coccyx, unstageable. Wound care consulted. Recommendations to continue with Mepilex pressure-relief dressings. Frequent turns. Patient denies pain. Lungs CTA. Per patient spouse she is legally blind, ptosis noted of right eye (POA). ? Patient has been ambulating independently x 1 standby assist with walker. Mentation doing better, APS case still ongoing at this time ? Patient stable on room air, hemodynamically stable ? CBC, CMP, magnesium all within normal range. Lab holiday tomorrow. #Seizure-like activity ? Per ER staff patient had what appeared to be seizure-like activity. Patient does not appear to be postictal. Patient received IV bolus Keppra in the ED, will continue Keppra 500 twice daily at this time. Seizure precautions in place. No seizure-like activity since admission. Full code VTE?Lovenox Up with assistance, ambulate as tolerated Regular diet
[2025-03-31 12:00] VITALS: BP 127/68; PULSE 100; RESP 16; TEMP 36.8; O2SAT 96
[2025-03-31 16:00] VITALS: BP 144/70; PULSE 86; RESP 16; TEMP 36.4; O2SAT 97
--- NOTE | 2025-03-31 18:14 | PC.NURSE ---
Patient alert to self, vs stable and patient remained on room air. Patient able to sit in chair for lunch but wanted back in bed by dinner. Patient turned q2.
[2025-03-31 20:00] VITALS: BP 128/66; PULSE 61; RESP 16; TEMP 36.4; O2SAT 98
[2025-03-31] MEDS: MELATONIN 5MG TABLET 5 MG PO (20:06)
[2025-04-01] VITALS: BP 129/71; PULSE 80; RESP 18; TEMP 36.5; O2SAT 96
[2025-04-01 04:00] VITALS: BP 144/77; PULSE 64; RESP 18; TEMP 36.5; O2SAT 94; BMI 29.3
[2025-04-01 07:59] VITALS: BP 133/99; PULSE 100; RESP 16; TEMP 36.6; O2SAT 95
--- NOTE | 2025-04-01 09:25 | P.PN_ITS ---
<Statement entered by Bhupendra Landaverde MD - 04/08/25 15:55> Agree with plan of care as outlined by the DEPARTMENT OPERATIONS MANAGER. Subjective *Date: 04/01/25 *Time: 11:18 Interval history: Patient is doing well this morning, up to chair with therapy. States she ate breakfast well. Has no complaints. Patient is still pleasantly confused, states she is 20 years old and [place]. She is able to tell me her name and her birthday otherwise unable to answer questions appropriately at this time. Still awaiting information from [employer]PS investigation. Medical Exam Vital signs and Labs for Last 24 Hours: Vital Signs Temp Pulse Resp BP Pulse Ox O2 Del Method 04/01/25 08:58 Room Air 04/01/25 08:00 Room Air 04/01/25 07:59 98 F 100 H 16 133/99 H 95 Room Air 04/01/25 06:37 Room Air 04/01/25 05:00 Room Air 04/01/25 04:00 97.7 F 64 18 144/77 H 94 L Room Air 04/01/25 02:40 Room Air 04/01/25 01:00 Room Air 04/01/25 00:00 97.7 F 80 18 129/71 96 Room Air 03/31/25 23:00 Room Air 03/31/25 20:29 Room Air 03/31/25 20:00 97.5 F L 61 16 128/66 98 Room Air 03/31/25 20:00 Room Air 03/31/25 18:41 Room Air 03/31/25 17:07 Room Air 03/31/25 16:00 97.6 F 86 16 144/70 H 97 Room Air 03/31/25 15:00 Room Air 03/31/25 12:20 Room Air 03/31/25 12:00 98.2 F 100 H 16 127/68 96 Room Air 03/31/25 10:30 Room Air Intake and Output 03/31/25 04/01/25 04/01/25 23:59 07:59 15:59 Intake Total 0 / 540 400 / 400 Output Total 0 / 0 Balance 0 / -560 400 / 400 Intake: Intake, Oral Amount 0 / 540 400 / 400 Output: Output, Urine Amount 0 / 0 Other: Number of Voids 0 Number of Unmeasured Voids 1 1 Weight 82.871 kg Patient Weight 04/01/25 23:59 Weight 82.871 kg I & O for Labs for Last 24 Hours: Intake & Output 03/29/25 03/30/25 03/31/25 04/01/25 23:59 23:59 23:59 23:59 Intake Total 960 / 1080 1200 / 1200 390 / 540 400 / 400 Output Total 1800 / 1800 3050 / 3650 1100 / 1100 0 / 0 Balance -840 / -720 -1850 / -2450 -710 / -560 400 / 400 Weight 82.645 kg 82.236 kg 82.871 kg 82.871 kg Constitutional: Present no acute distress, chronically ill appearing and cooperative Head: Present atraumatic Eyes: Present other (Legally blind, ptosis of right eye) Neck: Present normal inspection; Absent lymphadenopathy Respiratory: Present CTA bilaterally and normal respiratory effort; Absent wheezes or crackles Cardiac: Present Reg Rate and Rhythm and No Murmur GI: Present soft and normal bowel sounds; Absent distention or tenderness Rectal (female): Present deferred (female): Present deferred Extremities: Present normal inspection and full ROM; Absent tenderness or edema Skin: Present intact; Absent erythema Comment:: Decubitus wound on sacrum Neuro: Present Weakness, Grossly Intact, alert, awake, oriented x 3 and moves all extremities Assessment and Plan *Assessment and plan (1) Generalized weakness: Status: Acute Category: Medical Code(s): R53.1 - Weakness (2) Seizure-like activity: Status: Acute Category: Medical Code(s): R29.818 - Other symptoms and signs involving the nervous system (3) Adult failure to thrive: Status: Acute Category: Medical Code(s): R62.7 - Adult failure to thrive (4) Multiple rib fractures: Status: Acute Category: Medical Code(s): S22.49XA - Multiple fractures of ribs, unspecified side, initial encounter for closed fracture (5) Frequent falls: Status: Acute Category: Medical Code(s): R29.6 - Repeated falls (6) Decubitus ulcer of sacral area: Status: Acute Category: Medical Code(s): L89.159 - Pressure ulcer of sacral region, unspecified stage Plan Ms. Ballesteros is a 74-year-old female who presented to the emergency department on 03/24/2025 via EMS after a fall. Per patient and 's patient had fallen on 03/21/2025 and has been unable to get up since. That is approximately 3 days ago. Per he attempted to get patient up and off of the ground but was unable. Patient endorsed weakness but had no other complaints at the time. Patient does have pressure wounds on her coccyx and we will scattered abrasions on her legs and arms. Patient was recently in the ER and placement at that time was offered, declined. Patient's now endorses the need for potential placement. Patient apparently also had some seizure-like activity in the emergency department, was given a loading dose of IV Keppra. Patient has no known history of seizures and did not appear to be in a postictal state postseizure like activity. Emergency room workup was significant for CK of 300, multiple CTs of head, spine, back were obtained and show no acute findings. UA is unremarkable with only trace hematuria, chest x-ray shows several lower lateral left rib fractures, no evidence of pneumothorax. Minimal lactic acidosis of 2.3, CBC unremarkable. Patient's GCS is 14, negative neurological scans?therefore low concern for actual seizure. Patient did have a CTA of abdomen/pelvis which showed nonspecific subcutaneous edema in the buttocks, on exam patient does have large unstageable pressure wound, nondraining. Patient's vitals remained hemodynamically stable in the ED. general surgery was consulted, Dr. Pepper, from the ED due to left-sided rib fractures, recommendations for admission due to failure to thrive, frequent falls, rib fractures, generalized weakness. Hospital medicine was consulted, I agreed to admit the patient. Plan of care as follows: Patient's went to withdrawal money for private pay placement last week. It was brought to our attention patient's is not on her account and she is unable to sign for herself. At this time she does not have a POA and is not able to appoint one herself due to her dementia diagnosis. Tonia Simental social work contacted [facility]PS for further investigation. APS evaluated patient on 03/26/2025, and plans to reach out to the bank for further information. Thanks statements were obtained from patient's account which showed patient to not qualify for Medicaid status and therefore would be a long- term, private pay resident. Discussion was had with patient's who maintains patient needs placement as he is unable to care for her physical needs and altered mentation. He states that when patient originally fell at home on 03/24/2025 he was unable to assist her off the ground but did not feel that at that time he should call EMS, per him he attended to her needs from the floor. On Monday she was still unable to get off the floor and he noticed a wound on her back, at this time he did call EMS for transport to the emergency department for further evaluation. Discussion was had with the patient who is alert to self but unable to answer questions appropriately for location, time, situation. Patient is only able to answer correctly her name and her birthday. I do feel the patient needs 21/11 assistance due to her mentation, diagnosis of dementia, and physical ability to care for herself. I feel as though if the patient were to return home, it would be unsafe and detrimental to her wellbeing. Patient has shown improvement with physical and Occupational Therapy during admission. Medically she is ready for discharge when a safe disposition is obtained. #Generalized weakness, improving #Frequent falls #Failure to thrive #Decubitus ulcer of sacrum, unstageable, present on admission ? Patient on initial exam was notable for generalized weakness, has improved significantly with PT/OT. Patient is able to ambulate with walker with standby assist in the room, to and from the bathroom, in and out of the bed and chair. Evaluation states recommendation of SNF facility following discharge for continued skilled therapy. Patient and spouse are interested in possible rehab/placement. After speaking with patient's he states that she does have a known history of dementia and is intermittently confused. Patient continues to experience intermittent confusion. - Patient has notable wound on her coccyx, unstageable. Wound care consulted. Recommendations to continue with Mepilex pressure-relief dressings. Frequent turns. Patient denies pain. Lungs CTA. Per patient spouse she is legally blind, ptosis noted of right eye (POA). ? Patient has been ambulating independently x 1 standby assist with walker. ? Patient stable on room air, hemodynamically stable ? CBC, CMP, magnesium all within normal range. #Seizure-like activity ? Per ER staff patient had what appeared to be seizure-like activity. Patient does not appear to be postictal. Patient received IV bolus Keppra in the ED, will continue Keppra 500 twice daily at this time. Seizure precautions in place. No seizure-like activity since admission. Full code VTE?Lovenox Up with assistance, ambulate as tolerated Regular diet
[2025-04-01 10:03] LABS: Vitamin B12 546 pg/mL (239-931)
[2025-04-01 10:08] LABS: Free T4 (Free Thyroxine) 1.06 ng/dl (0.78-2.19)
[2025-04-01 12:00] VITALS: BP 146/71; PULSE 99; RESP 19; TEMP 37; O2SAT 96
[2025-04-01] MEDS: SENNOSIDES 8.6MG/DOCUSATE 50MG TABLET 1 TAB PO (14:40)
[2025-04-01] MEDS: POLYETHYLENE GLYCOL 3350 17 GM PACKET PO (14:40)
[2025-04-01 16:00] VITALS: BP 153/82; PULSE 97; RESP 19; TEMP 36.4
--- NOTE | 2025-04-01 17:01 | PC.NURSE ---
pt resting supine in bed at this time. pt has been up to the chair for the majority of the shift. no complaints of pain. sacral foam dressing replaced this shift. pt oriented to self only. bowel regimen started this shift and pt has since had a bm. wound prevention practices and devices in place. no needs at this time. call light within reach.
[2025-04-01 19:54] VITALS: BP 131/65; PULSE 76; RESP 16; TEMP 36.6; O2SAT 96
[2025-04-01] MEDS: MELATONIN 5MG TABLET 5 MG PO (21:42)
[2025-04-02] VITALS: BP 123/69; PULSE 72; RESP 16; TEMP 36.4; O2SAT 96
--- NOTE | 2025-04-02 03:30 | PC.NURSE ---
Patient is alert to herself; she is uncertain of date/time and verbalizes that she does not know where [she] is at upon each assessment. However, she is able to recite her birthday matching to her chart. Minimally converses, expressed needing to sleep. She was observed to be resting in bed with eyes closed, respirations even and unlabored on room air, and no apparent distress throughout the majority of the night. Seizure pads remain in place for seizure precautions (documented seizure disorder history). Aspiration precautions were taken during administration of oral medications and providing intake of ice water (sitting patient upright at 90 degrees, allowing ample time for swallowing); no difficulties with swallowing or coughing noted. Soft mechanical diet. Patient has not had any reported symptoms this shift. She has been repositioned/turned every two hours (utilized distribution devices to preserve skin integrity). Skin issues were documented accordingly. Physical assessment was performed (see nursing shift biophysical intervention) as appropriately for this shift. Rolling walker resides in room. No IV access was observed; previous providers aware, allowing no access (see prior nurse notes). A female purewick is in place for urination needs; urine output documented accordingly. Bowel movement via brief, is incontinent. At this time, the patient remains resting in bed with no new needs vocalized. No acute changes noted. Bed alarm on. Call light within reach.
[2025-04-02 04:00] VITALS: BP 134/70; PULSE 75; RESP 16; TEMP 36.4; O2SAT 95; BMI 28.8
[2025-04-02 07:38] VITALS: BP 132/83; PULSE 97; RESP 18; TEMP 36.6; O2SAT 95
[2025-04-02] MEDS: SENNOSIDES 8.6MG/DOCUSATE 50MG TABLET 1 TAB PO (09:34)
[2025-04-02] MEDS: POLYETHYLENE GLYCOL 3350 17 GM PACKET PO (09:34)
--- NOTE | 2025-04-02 09:55 | P.PN_ITS ---
<Statement entered by Bhupendra Landaverde MD - 04/08/25 15:53> Agree with plan of care as outlined by the MANAGER CLINICAL. Subjective *Date: 04/02/25 *Time: 10:54 Interval history: Mrs. Gu is doing well this morning, discussed continuing plan of care. Currently awaiting guardianship decision with APS. Patient has no complaints, working with PT/OT, lab holiday today. Interactive with discussion although still intermittently confused. Medical Exam Vital signs and Labs for Last 24 Hours: Vital Signs Temp Pulse Pulse Resp BP Pulse Ox O2 Del Method 04/02/25 07:38 97.8 F 97 H 18 132/83 95 Room Air 04/02/25 06:50 Room Air 04/02/25 05:00 Room Air 04/02/25 04:00 97.6 F 75 16 134/70 95 Room Air 04/02/25 03:00 Room Air 04/02/25 01:00 Room Air 04/02/25 00:00 97.5 F L 72 16 123/69 96 Room Air 04/01/25 23:00 Room Air 04/01/25 21:00 Room Air 04/01/25 20:00 Room Air 04/01/25 19:54 97.9 F 76 16 131/65 96 Room Air 04/01/25 18:52 Room Air 04/01/25 17:00 Room Air 04/01/25 16:00 97.5 F L 97 H 19 153/82 H Room Air 04/01/25 15:00 Room Air 04/01/25 13:00 Room Air 04/01/25 12:00 98.6 F 99 H 19 146/71 H 96 Room Air 04/01/25 11:00 Room Air Intake and Output 04/01/25 04/02/25 04/02/25 23:59 07:59 15:59 Intake Total 100 / 340 240 / 340 Output Total 125 / 525 1500 / 1500 Balance -125 / 35 -1400 / -1160 240 / -1160 Intake: Intake, Oral Amount 100 / 340 240 / 340 Output: Output, Urine Amount 125 / 525 1500 / 1500 Other: Number of Unmeasured Voids 1 0 Number of Bowel Movements 1 Weight 81.284 kg Patient Weight 04/02/25 23:59 Weight 81.284 kg Laboratory Results - last 24 hr 04/01/25 08:50: Vitamin B12 546, Free T4 1.06 I & O for Labs for Last 24 Hours: Intake & Output 03/30/25 03/31/25 04/01/25 04/02/25 23:59 23:59 23:59 23:59 Intake Total 1200 / 1200 390 / 540 460 / 560 340 / 340 Output Total 3050 / 3650 1100 / 1100 525 / 525 1500 / 1500 Balance -1850 / -2450 -710 / -560 -65 / 35 -1160 / -1160 Weight 82.236 kg 82.871 kg 82.871 kg 81.284 kg Constitutional: Present no acute distress, chronically ill appearing and cooperative Head: Present atraumatic Eyes: Present other (Legally blind, ptosis of right eye) Neck: Present normal inspection; Absent lymphadenopathy Respiratory: Present CTA bilaterally and normal respiratory effort; Absent wheezes or crackles Cardiac: Present Reg Rate and Rhythm and No Murmur GI: Present soft and normal bowel sounds; Absent distention or tenderness Rectal (female): Present deferred (female): Present deferred Extremities: Present normal inspection and full ROM; Absent tenderness or edema Skin: Present intact; Absent erythema Comment:: Decubitus wound on sacrum Neuro: Present Weakness, Grossly Intact, alert, awake, oriented x 3 and moves all extremities Assessment and Plan *Assessment and plan (1) Generalized weakness: Status: Acute Category: Medical Code(s): R53.1 - Weakness (2) Seizure-like activity: Status: Acute Category: Medical Code(s): R29.818 - Other symptoms and signs involving the nervous system (3) Adult failure to thrive: Status: Acute Category: Medical Code(s): R62.7 - Adult failure to thrive (4) Multiple rib fractures: Status: Acute Category: Medical Code(s): S22.49XA - Multiple fractures of ribs, unspecified side, initial encounter for closed fracture (5) Frequent falls: Status: Acute Category: Medical Code(s): R29.6 - Repeated falls (6) Decubitus ulcer of sacral area: Status: Acute Category: Medical Code(s): L89.159 - Pressure ulcer of sacral region, unspecified stage Plan Ms. Ballesteros is a 74-year-old female who presented to the emergency department on 03/24/2025 via EMS after a fall. Per patient and 's patient had fallen on 03/21/2025 and has been unable to get up since. That is approximately 3 days ago. Per he attempted to get patient up and off of the ground but was unable. Patient endorsed weakness but had no other complaints at the time. Patient does have pressure wounds on her coccyx and we will scattered abrasions on her legs and arms. Patient was recently in the ER and placement at that time was offered, declined. Patient's now endorses the need for potential placement. Patient apparently also had some seizure-like activity in the emergency department, was given a loading dose of IV Keppra. Patient has no known history of seizures and did not appear to be in a postictal state postseizure like activity. Emergency room workup was significant for CK of 300, multiple CTs of head, spine, back were obtained and show no acute findings. UA is unremarkable with only trace hematuria, chest x-ray shows several lower lateral left rib fractures, no evidence of pneumothorax. Minimal lactic acidosis of 2.3, CBC unremarkable. Patient's GCS is 14, negative neurological scans?therefore low concern for actual seizure. Patient did have a CTA of abdomen/pelvis which showed nonspecific subcutaneous edema in the buttocks, on exam patient does have large unstageable pressure wound, nondraining. Patient's vitals remained hemodynamically stable in the ED. general surgery was consulted, Dr. Pepper, from the ED due to left-sided rib fractures, recommendations for admission due to failure to thrive, frequent falls, rib fractures, generalized weakness. Hospital medicine was consulted, I agreed to admit the patient. Plan of care as follows: Patient's went to withdrawal money for private pay placement last week. It was brought to our attention patient's is not on her account and she is unable to sign for herself. At this time she does not have a POA and is not able to appoint one herself due to her dementia diagnosis. Tonia Simental, social work contacted APS for further investigation. APS evaluated patient on 03/26/2025, and plans to reach out to the bank for further information. Thanks statements were obtained from patient's account which showed patient to not qualify for Medicaid status and therefore would be a long- term, private pay resident. Discussion was had with patient's who maintains patient needs placement as he is unable to care for her physical needs and altered mentation. He states that when patient originally fell at home on 03/24/2025 he was unable to assist her off the ground but did not feel that at that time he should call EMS, per him he attended to her needs from the floor. On Monday she was still unable to get off the floor and he noticed a wound on her back, at this time he did call EMS for transport to the emergency department for further evaluation. Discussion was had with the patient who is alert to self but unable to answer questions appropriately for location, time, situation. Patient is only able to answer correctly her name and her birthday. I do feel the patient needs 21/11 assistance due to her mentation, diagnosis of dementia, and physical ability to care for herself. I feel as though if the patient were to return home, it would be unsafe and detrimental to her wellbeing. Patient has shown improvement with physical and Occupational Therapy during admission. Medically she is ready for discharge when a safe disposition is obtained. #Generalized weakness, improving #Frequent falls #Failure to thrive #Decubitus ulcer of sacrum, unstageable, present on admission ? Patient on initial exam was notable for generalized weakness, has improved significantly with PT/OT. Patient is able to ambulate with walker with standby assist in the room, to and from the bathroom, in and out of the bed and chair. Evaluation states recommendation of SNF facility following discharge for continued skilled therapy. Patient and spouse are interested in possible rehab/placement. After speaking with patient's he states that she does have a known history of dementia and is intermittently confused. Patient continues to experience intermittent confusion. - Patient has notable wound on her coccyx, unstageable. Wound care consulted. Recommendations to continue with Mepilex pressure-relief dressings. Frequent turns. Patient denies pain. Lungs CTA. Per patient spouse she is legally blind, ptosis noted of right eye (POA). ? Patient has been ambulating independently x 1 standby assist with walker. ? Patient stable on room air, hemodynamically stable ? CBC, CMP, magnesium all within normal range. #Seizure-like activity ? Per ER staff patient had what appeared to be seizure-like activity. Patient does not appear to be postictal. Patient received IV bolus Keppra in the ED, will continue Keppra 500 twice daily at this time. Seizure precautions in place. No seizure-like activity since admission. Full code VTE?Lovenox Up with assistance, ambulate as tolerated Regular diet
[2025-04-02 10:49] LABS: Folate 10.50 ng/mL
[2025-04-02 12:00] VITALS: BP 134/87; PULSE 76; RESP 18; TEMP 36.4; O2SAT 93
[2025-04-02 16:00] VITALS: BP 155/90; PULSE 113; RESP 18; TEMP 36.5; O2SAT 95
[2025-04-02 20:00] VITALS: BP 119/50; PULSE 84; RESP 16; TEMP 36.9; O2SAT 97
[2025-04-02] MEDS: MELATONIN 5MG TABLET 5 MG PO (20:17)
[2025-04-03] VITALS (7 sets, daily range): BP systolic 105–137; BP diastolic 50–76; PULSE 56–102; RESP 16–18; TEMP 36.4–36.9; O2SAT 94–97; BMI 28.8
--- NOTE | 2025-04-03 04:05 | PC.NURSE ---
Patient remains alert to herself; disoriented to time, place, and current situation. However, she was able to recall past life events during casual conversations this shift. She was observed to be resting in bed with eyes closed, respirations even and unlabored on room air, and no apparent distress throughout the majority of the night. Seizure precautions and aspirations precautions ongoing. Soft mechanical diet. Patient has not had any complaints this shift. Repositioned/turned in bed every two hours. Gets up with assistance during any transfers/ambulation. Physical assessment was performed (see nursing shift biophysical intervention) as appropriately for this shift. No IV access allowance ongoing. Incontinent of bowel + bladder. Sacral dressing was changed this shift; wound remains open with eschar and granulation tissue present. At this time, the patient remains resting in bed with no new needs vocalized. No acute changes noted. Bed alarm on. Call light within reach.
[2025-04-03] MEDS: POLYETHYLENE GLYCOL 3350 17 GM PACKET PO (08:57)
[2025-04-03] MEDS: SENNOSIDES 8.6MG/DOCUSATE 50MG TABLET 1 TAB PO (08:57)
--- NOTE | 2025-04-03 10:54 | P.PN_ITS ---
<Statement entered by Bhupendra Landaverde MD - 04/08/25 15:51> Agree with plan of care as outlined by the WAXER OPERATOR. Subjective *Date: 04/03/25 *Time: 12:05 Interval history: Ms. Gu is doing well today, up to chair, spouse at bedside. No complaints, interactive. Awaiting guardianship decision with APS. Medical Exam Vital signs and Labs for Last 24 Hours: Vital Signs Temp Pulse Pulse Resp BP Pulse Ox O2 Del Method 04/03/25 09:20 Room Air 04/03/25 08:30 102 H 96 Room Air 04/03/25 08:00 97.7 F 102 H 16 117/71 96 Room Air 04/03/25 07:00 Room Air 04/03/25 05:00 Room Air 04/03/25 04:00 97.7 F 82 16 133/71 95 Room Air 04/03/25 03:00 Room Air 04/03/25 01:00 Room Air 04/03/25 00:00 97.6 F 70 16 137/69 97 Room Air 04/02/25 23:00 Room Air 04/02/25 21:00 Room Air 04/02/25 20:00 Room Air 04/02/25 20:00 98.5 F 84 16 119/50 L 97 Room Air 04/02/25 18:34 Room Air 04/02/25 17:00 Room Air 04/02/25 16:00 97.7 F 113 H 18 155/90 H 95 Room Air 04/02/25 13:02 Room Air 04/02/25 13:00 Room Air 04/02/25 12:00 97.6 F 76 18 134/87 93 L Room Air 04/02/25 11:00 Room Air Intake and Output 04/02/25 04/03/25 04/03/25 23:59 07:59 15:59 Intake Total 270 / 1070 100 / 470 370 / 470 Output Total 150 0 / 0 0 / 0 Balance 269 / -431 100 / 470 370 / 470 Intake: Intake, Oral Amount 270 / 1070 100 / 470 370 / 470 Output: Output, Urine Amount 150 0 / 0 0 / 0 Other: Number of Unmeasured Voids 1 1 1 Weight 81.193 kg Patient Weight 04/03/25 23:59 Weight 81.193 kg I & O for Labs for Last 24 Hours: Intake & Output 03/31/25 04/01/25 04/02/25 04/03/25 23:59 23:59 23:59 23:59 Intake Total 390 / 540 460 / 560 970 / 1070 470 / 470 Output Total 1100 / 1100 525 / 525 1501 / 1501 0 / 0 Balance -710 / -560 -65 / 35 -531 / -431 470 / 470 Weight 82.871 kg 82.871 kg 81.284 kg 81.193 kg Constitutional: Present no acute distress, chronically ill appearing and cooperative Head: Present atraumatic Eyes: Present other (Legally blind, ptosis of right eye) Neck: Present normal inspection; Absent lymphadenopathy Respiratory: Present CTA bilaterally and normal respiratory effort; Absent whee zes or crackles Cardiac: Present Reg Rate and Rhythm and No Murmur GI: Present soft and normal bowel sounds; Absent distention or tenderness Rectal (female): Present deferred (female): Present deferred Extremities: Present normal inspection and full ROM; Absent tenderness or edema Skin: Present intact; Absent erythema Comment:: Decubitus wound on sacrum Neuro: Present Weakness, Grossly Intact, alert, awake, oriented x 3 and moves all extremities Assessment and Plan *Assessment and plan (1) Generalized weakness: Status: Acute Category: Medical Code(s): R53.1 - Weakness (2) Seizure-like activity: Status: Acute Category: Medical Code(s): R29.818 - Other symptoms and signs involving the nervous system (3) Adult failure to thrive: Status: Acute Category: Medical Code(s): R62.7 - Adult failure to thrive (4) Multiple rib fractures: Status: Acute Category: Medical Code(s): S22.49XA - Multiple fractures of ribs, unspecified side, initial encounter for closed fracture (5) Frequent falls: Status: Acute Category: Medical Code(s): R29.6 - Repeated falls (6) Decubitus ulcer of sacral area: Status: Acute Category: Medical Code(s): L89.159 - Pressure ulcer of sacral region, unspecified stage Plan Ms. Ballesteros is a 74-year-old female who presented to the emergency department on 03/24/2025 via EMS after a fall. Per patient and 's patient had fallen on 03/21/2025 and has been unable to get up since. That is approximately 3 days ago. Per he attempted to get patient up and off of the ground but was unable. Patient endorsed weakness but had no other complaints at the time. Patient does have pressure wounds on her coccyx and we will scattered abrasions on her legs and arms. Patient was recently in the ER and placement at that time was offered, declined. Patient's now endorses the need for potential placement. Patient apparently also had some seizure-like activity in the emergency department, was given a loading dose of IV Keppra. Patient has no known history of seizures and did not appear to be in a postictal state postseizure like activity. Emergency room workup was significant for CK of 300, multiple CTs of head, spine, back were obtained and show no acute findings. UA is unremarkable with only trace hematuria, chest x-ray shows several lower lateral left rib fra ctures, no evidence of pneumothorax. Minimal lactic acidosis of 2.3, CBC unremarkable. Patient's GCS is 14, negative neurological scans?therefore low concern for actual seizure. Patient did have a CTA of abdomen/pelvis which showed nonspecific subcutaneous edema in the buttocks, on exam patient does have large unstageable pressure wound, nondraining. Patient's vitals remained hemodynamically stable in the ED. general surgery was consulted, Dr. Pepper, from the ED due to left-sided rib fractures, recommendations for admission due to failure to thrive, frequent falls, rib fractures, generalized weakness. Hospital medicine was consulted, I agreed to admit the patient. Plan of care as follows: Patient's went to [employer] for private pay placement last week. It was brought to our attention patient's is not on her account and she is unable to sign for herself. At this time she does not have a POA and is not able to appoint one herself due to her dementia diagnosis. Tonia Simental social work contacted [facility] for further investigation. APS evaluated patient on 03/26/2025, and plans to reach out to the bank for further information. Thanks statements were obtained from patient's account which showed patient to not qualify for Medicaid status and therefore would be a long- term, private pay resident. Discussion was had with patient's who maintains patient needs placement as he is unable to care for her physical needs and altered mentation. He states that when patient originally fell at home on 03/24/2025 he was unable to assist her off the ground but did not feel that at that time he should call EMS, per him he attended to her needs from the floor. On Monday she was still unable to get off the floor and he noticed a wound on her back, at this time he did call EMS for transport to the emergency department for further evaluation. Discussion was had with the patient who is alert to self but unable to answer questions appropriately for location, time, situation. Patient is only able to answer correctly her name and her birthday. I do feel the patient needs / assistance due to her mentation, diagnosis of dementia, and physical ability to care for herself. I feel as though if the patient were to return home, it would be unsafe and detrimental to her wellbeing. Patient has shown improvement with physical and Occupational Therapy during admission. Medically she is ready for discharge when a safe disposition is obtained. #Generalized weakness, improving #Frequent falls #Failure to thrive #Decubitus ulcer of sacrum, unstageable, present on admission ? Patient on initial exam was notable for generalized weakness, has improved significantly with PT/OT. Patient is able to ambulate with walker with standby assist in the room, to and from the bathroom, in and out of the bed and chair. Evaluation states recommendation of SNF facility following discharge for continued skilled therapy. Patient and spouse are interested in possible rehab/placement. After speaking with patient's he states that she does have a known history of dementia and is intermittently confused. Patient continues to experience intermittent confusion. - Patient has notable wound on her coccyx, unstageable. Wound care consulted. Recommendations to continue with Mepilex pressure-relief dressings. Frequent turns. Patient denies pain. Lungs CTA. Per patient spouse she is legally blind, ptosis noted of right eye (POA). ? Patient has been ambulating independently x 1 standby assist with walker. ? Patient stable on room air, hemodynamically stable ? CBC, CMP, magnesium all within normal range on lab work on 03/31/2025. #Seizure-like activity ? Per ER staff patient had what appeared to be seizure-like activity. Patient does not appear to be postictal. Patient received IV bolus Keppra in the ED, will continue Keppra 500 twice daily at this time. Seizure precautions in place. No seizure-like activity since admission. Full code VTE?Lovenox Up with assistance, ambulate as tolerated Regular diet
[2025-04-03] MEDS: MELATONIN 5MG TABLET 5 MG PO (20:32)
[2025-04-04] VITALS: BP 130/71; PULSE 80; RESP 16; TEMP 36.7; O2SAT 96
[2025-04-04 04:00] VITALS: BP 125/60; PULSE 80; RESP 16; TEMP 36.6; O2SAT 96; BMI 29.0
--- NOTE | 2025-04-04 04:27 | PC.NURSE ---
Alert to name and understands she is in the hospital in [place], patient believes year is 1980. No complaints from patient. Q2 turn. Room air. Purewick in place. Bed alarm on. Call light in reach.
[2025-04-04 08:00] VITALS: BP 124/82; PULSE 86; RESP 17; TEMP 36.6; O2SAT 95
[2025-04-04 08:15] VITALS: O2SAT 95
[2025-04-04] MEDS: SENNOSIDES 8.6MG/DOCUSATE 50MG TABLET 1 TAB PO (08:27)
[2025-04-04] MEDS: POLYETHYLENE GLYCOL 3350 17 GM PACKET PO (08:27)
--- NOTE | 2025-04-04 11:10 | P.DS_ITS ---
<Statement entered by Bhupendra Landaverde MD - 04/08/25 15:56> Agree with plan of care as outlined by the VALET ATTENDANT. General Admission date:: 03/24/25 Discharge date: 04/04/25 HPI HPI HPI: Ms. Ballesteros is a 74-year-old female who presented to the emergency department today via EMS after a fall. Per patient and 's patient had fallen on 03/21/2025 and has been unable to get up since. That is approximately 3 days ago. Per he attempted to get patient up and off of the ground but was unable. Patient does endorse weakness. No other complaints at this time. Patient does have pressure wounds on her coccyx and we will scattered abrasions on her legs and arms. Patient was recently in the ER and placement at that time was offered, declined. Patient's now endorses the need for potential placement. Patient apparently also had some seizure-like activity in the emergency department, was given a loading dose of IV Keppra. Patient has no known history of seizures and does not appear to be in a postictal state at this time. Emergency room workup was significant for CK of 300, multiple CTs of head, spine, back were obtained and show no acute findings. UA is unremarkable with only trace hematuria, chest x-ray shows several lower lateral left rib fractures, no evidence of pneumothorax. Minimal lactic acidosis of 2.3, CBC unremarkable. Patient's GCS is 14, negative neurological scans?therefore low concern for actual seizure. Patient did have a CTA of abdomen/pelvis which showed nonspecific subcutaneous edema in the buttocks, on exam patient does have large stage I pressure wound. General surgery was consulted, Dr. Pepper, from the ED due to left-sided rib fractures, recommendations for admission due to failure to thrive, frequent falls, rib fractures, generalized weakness. Hospital Course Hospital Course Hospital Course: Ms. Ballesteros is a 74-year-old female who presented to the emergency department on 03/24/2025 via EMS after a fall. Per patient and 's patient had fallen on 03/21/2025 and has been unable to get up since. That is approximately 3 days ago. Per he attempted to get patient up and off of the ground but was unable. Patient endorsed weakness but had no other complaints at the time. Patient does have pressure wounds on her coccyx and we will scattered abrasions on her legs and arms. Patient was recently in the ER and placement at that time was offered, declined. Patient's now endorses the need for potential placement. Patient apparently also had some seizure-like activity in the emergency department, was given a loading dose of IV Keppra. Patient has no known history of seizures and did not appear to be in a postictal state postseizure like activity. Emergency room workup was significant for CK of 300, multiple CTs of head, spine, back were obtained and show no acute findings. UA is unremarkable with only trace hematuria, chest x-ray shows several lower lateral left rib fractures, no evidence of pneumothorax. Minimal lactic acidosis of 2.3, CBC unremarkable. Patient's GCS is 14, negative neurological scans?therefore low concern for actual seizure. Patient did have a CTA of abdomen/pelvis which showed nonspecific subcutaneous edema in the buttocks, on exam patient does have large unstageable pressure wound, nondraining. Patient's vitals remained hemodynamically stable in the ED. general surgery was consulted, Dr. Pepper, from the ED due to left-sided rib fractures, recommendations for admission due to failure to thrive, frequent falls, rib fractures, generalized weakness. Hospital medicine was consulted, I agreed to admit the patient. Plan of care as follows: Patient's went to withdrawal money for private pay placement last week. It was brought to our attention patient's is not on her account and she is unable to sign for herself. At this time she does not have a POA and is not able to appoint one herself due to her dementia diagnosis. Tonia Simental social work contacted [facility] for further investigation. APS evaluated patient on 03/26/2025, and plans to reach out to the bank for further information. Bank statements were obtained from patient's account which showed patient to not qualify for Medicaid status and therefore would be a long-term, private pay resident. Discussion was had with patient's who maintained patient needs placement as he is unable to care for her physical needs and altered mentation. He states that when patient originally fell at home on 03/24/2025 he was unable to assist her off the ground but did not feel that at that time he should call EMS, per him he attended to her needs from the floor. On Monday she was still unable to get off the floor and he noticed a wound on her back, at this time he did call EMS for transport to the emergency department for further evaluation. Discussion was had with the patient who is alert to self but unable to answer questions appropriately for location, time, situation. Patient is only able to answer correctly her name and her birthday. I do feel the patient needs 24/7 assistance due to her mentation, diagnosis of dementia, and physical ability to care for herself. After continued discussion with APS, Tonia Simental, the patient, and her he feels due to her improvement physically that he will be able to care for her at home. Discussed in length if patient were to return home did he feel like he could take care of her with her dementia diagnosis. Spouse states he feels that he can take care of her now that her strength has built up in the hospital. Home health services were recommended and patient and family are agreeable. APS was informed of these ongoing plan of care and decision to discharge home with home health services. They will continue to follow for guardianship. #Generalized weakness, improving #Frequent falls #Failure to thrive #Decubitus ulcer of sacrum, unstageable, present on admission ? Patient on initial exam was notable for generalized weakness, has improved significantly with PT/OT. Patient is able to ambulate with walker with standby assist in the room, to and from the bathroom, in and out of the bed and chair. Evaluation states recommendation of SNF facility following discharge for continued skilled therapy. Patient and spouse are interested in possible rehab/placement. After speaking with patient's he states that she does have a known history of dementia and is intermittently confused. Patient continues to experience intermittent confusion. - Patient has notable wound on her coccyx, unstageable. Wound care consulted. Recommendations to continue with Mepilex pressure-relief dressings. Frequent turns. Patient denies pain. Lungs CTA. Per patient spouse she is legally blind, ptosis noted of right eye (POA). ? Patient has been ambulating independently x 1 standby assist with walker. Patient ambulated 85 feet day of discharge. ? Lab work was last obtained on 03/31/2025 which was all unremarkable. #Seizure-like activity ? Per ER staff patient had what appeared to be seizure-like activity. Patient did not appear postictal. Patient received IV bolus Keppra in the ED, will continue Keppra 500 twice daily at this time. Seizure precautions in place. No seizure-like activity since admission. Will discharge patient home on Keppra 500 mg twice daily. Patient should follow-up with neurologist. Total time spent on discharge 44 minutes in counseling, documentation, chart review, and direct care with patient. Exam Data for Last 24 hours Vital signs and Labs for Last 24 Hours: Temp Pulse Resp BP Pulse Ox O2 Del Method O2 Flow Rate 97.8 F 86 17 124/82 95 Room Air 2 04/04/25 08:00 04/04/25 08:00 04/04/25 08:00 04/04/25 08:00 04/04/25 08:15 04/04/25 09:10 03/25/25 16:07 I & O for Last 24 hours: Intake & Output 04/01/25 04/02/25 04/03/25 04/04/25 23:59 23:59 23:59 23:59 Intake Total 460 / 560 970 / 1070 980 / 1080 460 / 460 Output Total 525 / 525 1501 / 1501 0 / 0 250 / 250 Balance -65 / 35 -531 / -431 980 / 1080 210 / 210 Weight 82.871 kg 81.284 kg 81.193 kg 81.873 kg Constitutional Constitutional: no acute distress, average body habitus, chronically ill appearing and cooperative *Routine HEENT Exam Head: Present normocephalic Eye: Present EOMI and other (Proptosis right eye, chronic) ENT: Present mucous membranes moist *Routine Neck Exam Neck: Present supple; Absent lymphadenopathy *Routine Respiratory Exam Respiratory: Present CTA bilaterally and normal respiratory effort; Absent wheezes or crackles *Routine Cardiovascular Exam Cardiovascular: Present RRR, Normal S1 and Normal S2; Absent murmur *Routine Abdominal Exam Abdominal: Present soft and normoactive bowel sounds; Absent tenderness or distended *Routine Rectal Exam Patient deferred: visual exam *Routine Exam Patient deferred: external exam *Routine Extremities Exam Extremities: Present full ROM; Absent cyanosis, clubbing or edema *Routine Skin Exam Skin: Present warm; Absent rash *Routine Neurological Exam Neurological: Present alert and normal speech; Absent vision grossly intact Comments: Baseline cognition, dementia DS: Diagnosis Discharge Diagnosis (1) Generalized weakness: Status: Acute Code(s): R53.1 - Weakness (2) Seizure-like activity: Status: Acute Code(s): R29.818 - Other symptoms and signs involving the nervous system (3) Adult failure to thrive: Status: Acute Code(s): R62.7 - Adult failure to thrive (4) Multiple rib fractures: Status: Acute Code(s): S22.49XA - Multiple fractures of ribs, unspecified side, initial encounter for closed fracture (5) Frequent falls: Status: Acute Code(s): R29.6 - Repeated falls (6) Decubitus ulcer of sacral area: Status: Acute Code(s): L89.159 - Pressure ulcer of sacral region, unspecified stage Meds Home Medications and Allergies Home Medications ?Medication ?Instructions ?Recorded ?Confirmed ?Type levetiracetam 500 mg tablet 500 mg PO BID 30 days #60 tabs 04/04/25 Rx (Keppra) New Prescriptions to Start Prescriptions: levetiracetam [Keppra] Susanna Mortensen Allergies Allergy/AdvReac Type Severity Reaction Status Date / Time codeine AdvReac Nausea Verified 04/12/23 11:00 Discharge Plan Disposition Patient Disposition: Home Health Service Condition: Fair Discharge Order Discharge Orders: Discharge Order (Routine); Ordered 04/04/25 Ordered By: Susanna Mortensen Follow up Plan Follow up with: Estrellita Persaud APRN [Primary Care Provider, Medical] - Enter time for follow up Neisha Daugherty MD [Staff Physician, Neurology] - Enter time for follow up Prescriptions/Medication Reconciliation: New levetiracetam [Keppra] 500 mg Tablet 500 mg PO BID 30 Days Qty: 60 0RF Problem Reconciliation Problems Reviewed?: Yes Patient Discharge Instructions ACTIVITY: Continue current activity, Ambulate as tolerated and Up with assistance DIET: continue same diet Patient Instructions: Rib Fracture, [id number], How to Prevent Falls Print Language: Vincentian Providers Primary Care Provider: Estrellita Persaud Admit Provider: Bhupendra Landaverde Attending Provider: Bhupendra Landaverde
[2025-04-04 12:00] VITALS: BP 135/85; PULSE 94; RESP 16; TEMP 36.4; O2SAT 96
--- NOTE | 2025-04-04 12:10 | SW/DCPLANNER ---
Addendum entered by Delmis Pulido 04/04/25 13:40: Patient was accepted by [facility]. I also spoke with patient and patient's regarding home health and both were agreeable and had no preference in what agency i sent her information to. Shoshana Powell Original Note: Spoke with patient regarding home health services once she is medically stable and ready for discharge. Patient stated that she is interested in home health and that she does not have a preference in what agency i send her information to. I will fax patient's information to [facility] and will update once i hear back if they can accept patient or not. Shoshana Powell
--- NOTE | 2025-04-08 10:40 | SW/DCPLANNER ---
Phoned patient x2. left messages with name and a call back number. Shoshana Powell
== END 2025-04-04 15:03 | disposition home health service (06) ==
LOC: ER 15:59 → 2ND 16:02
PROVIDERS: Internal Medicine Adolescent Medicine; Physician Assistant; Admitting Provider Student in an Organized Health Care Education/Training Program; Emergency Provider Student in an Organized Health Care Education/Training Program; PCP Nurse Practitioner Family; Visit Provider Student in an Organized Health Care Education/Training Program
DX: R53.1 Weakness (principal); R29.818 Other symptoms and signs involving the nervous system; R62.7 Adult failure to thrive; R29.6 Repeated falls; S22.42XA Multiple fractures of ribs, left side, initial encounter for closed fracture; L89.159 Pressure ulcer of sacral region, unspecified stage; Z90.710 Acquired absence of both cervix and uterus; Z90.49 Acquired absence of other specified parts of digestive tract; Z88.5 Allergy status to narcotic agent; Z79.899 Other long term (current) drug therapy; I48.20 Chronic atrial fibrillation, unspecified; M51.369 Other intervertebral disc degeneration, lumbar region without mention of lumbar back pain or lower extremity pain; J90 Pleural effusion, not elsewhere classified
CPT/HCPCS: 36415; 70450; 70496; 70498; 71045; 71275; 72125; 72128; 72131; 72170; 74177; 80048; 80053; 80061; 81001; 82550; 82607; 82746; 83036; 83605; 83690; 83735; 83880; 84100; 84439; 84443; 84484; 84550; 85025; 85610; 93005; 97110; 97116; 97162; 97166; 97530; 97535; 99285; G0378; J1650; J1953; Q9967